=== PATIENT | female | born 1970 | race Caucasian/White ===

== ENCOUNTER 2019-12-28 10:05 | Inpatient (IN) ==
--- NOTE | 2019-12-12 10:37 | PAT Medication Instructions ---
Medication Instructions Date of Service December 12, 2019 Home Medications albuterol sulfate 2 puff INHALATION Q6H PRN cholecalciferol (vitamin D3) [Vitamin D3] 1,000 unit PO QAM dextroamphetamine-amphetamine [Adderall] 10 mg PO QPM diclofenac sodium 2 g TOPICAL QID PRN diclofenac sodium 75 mg PO QAM escitalopram oxalate [Lexapro] 30 mg PO QAM fluticasone propionate [Flonase Allergy Relief] 2 spray INTRANASAL BID methadone 10 - 20 mg PO TID multivitamin 1 tab PO QAM pregabalin [Lyrica] 50 mg PO BID zolpidem [Ambien] 10 mg PO HS PRN Nexium 1 tab PO QAM dextroamphetamine-amphetamine [Adderall XR] 20 mg PO QAM Continue as directed methadone 10 - 20 mg PO TID ASK your surgeon for instructions diclofenac sodium 75 mg PO QAM STOP taking 24 hours before surgery diclofenac sodium 2 g TOPICAL QID PRN DO NOT take the morning of surgery cholecalciferol (vitamin D3) [Vitamin D3] 1,000 unit PO QAM multivitamin 1 tab PO QAM dextroamphetamine-amphetamine [Adderall XR] 20 mg PO QAM Take morning of surgery With a small sip of water, OTHERWISE NOTHING TO EAT OR DRINK AFTER MIDNIGHT: albuterol sulfate 2 puff INHALATION Q6H PRN (use if needed; please bring with you to hospital day of surgery if possible) escitalopram oxalate [Lexapro] 30 mg PO QAM fluticasone propionate [Flonase Allergy Relief] 2 spray INTRANASAL BID pregabalin [Lyrica] 50 mg PO BID Nexium 1 tab PO QAM Take evening before surgery albuterol sulfate 2 puff INHALATION Q6H PRN (if needed) dextroamphetamine-amphetamine [Adderall] 10 mg PO QPM fluticasone propionate [Flonase Allergy Relief] 2 spray INTRANASAL BID pregabalin [Lyrica] 50 mg PO BID zolpidem [Ambien] 10 mg PO HS PRN (if needed) Other Notes If you have any questions please call us at [phone] or [phone] or [phone] or [phone]
--- NOTE | 2019-12-13 13:54 | Anesthesiology Consultation ---
Date of Service December 13, 2019 Assessment & Plan (1) Encounter for pre-operative examination: Chart Review Chart Review: Pending: Refer to Additional Notes / Consult section (pending PCP clearance and preop Covid testing ) and Patient seen in Pre Admission Testing Awaiting surgeon ordered PCP clearance scheduled 12/13 Per PAT appt 12/13/19, pt resides in [facility]. Wears mask, uses good hand hygiene and socially distances. No known Covid positive contacts or Covid related symptoms. Educated patient to follow up with surgeon's office regarding Covid testing. Educated on importance of self quarantining, social distancing and wearing mask in public both for the patient and household contacts. Teaching & Discussion Pre-Anesthesia Teaching/Discussion Notes: Instructed NPO after midnight before surgery,except medications with 15 cc of water. Medication instructions provided according to the [facility] guidelines. History Surgery Operation Date: 12/28/19 07:45 Proposed Procedures p L1-L2 Decompression, T12-L3 Fusion, L2-S1 Hardware Removal; Spinal Cord Monitoring - Ant Frank DO Height/Weight Height: 5 ft 7 in Weight: 74.7 kg Allergies Allergy/AdvReac Type Severity Reaction Status Date / Time pollen extracts Allergy Unknown CONGESTION, Verified 12/07/19 14:33 RUNNY NOSE Medications Home Medications Medication Instructions Recorded Confirmed Last Taken albuterol sulfate 2 puff INHALATION Q6H PRN 03/26/19 12/07/19 04/19/19 15:00 cholecalciferol (vitamin D3) 1,000 unit PO QAM 03/26/19 12/07/19 04/19/19 08:00 [Vitamin D3] dextroamphetamine-amphetamine 10 mg PO QPM 03/26/19 12/07/19 04/19/19 08:00 [Adderall] diclofenac sodium 2 g TOPICAL QID PRN 03/26/19 12/07/19 Unknown diclofenac sodium 75 mg PO QAM 03/26/19 12/07/19 04/08/19 escitalopram oxalate [Lexapro] 30 mg PO QAM 03/26/19 12/07/19 04/19/19 08:00 fluticasone propionate [Flonase 2 spray INTRANASAL BID 03/26/19 12/07/19 04/19/19 08:00 Allergy Relief] methadone 10 - 20 mg PO TID 12/01/0412/07/19 04/20/19 06:00 multivitamin 1 tab PO QAM 03/26/19 12/07/19 04/19/19 pregabalin [Lyrica] 50 mg PO BID 03/26/19 12/07/19 04/20/19 06:00 zolpidem [Ambien] 10 mg PO HS PRN 03/26/19 12/07/19 04/18/19 Nexium 1 tab PO QAM 12/07/19 12/07/19 Unknown dextroamphetamine-amphetamine 20 mg PO QAM 12/07/19 12/07/19 Unknown [Adderall XR] Wellbutrin See Rx Instructions .ROUTE .COMPLEX 12/13/19 12/13/19 Unknown Past Medical History Medical History Anxiety Asthma Well controlled and stable Attention deficit disorder (ADD) Chronic fatigue syndrome Stable Depression Fibromyalgia No current flares- stable GERD (gastroesophageal reflux disease) Well controlled and stable Migraine HX-NO RECENT ISSUES Osteoarthritis SOB (shortness of breath) on exertion ON OCC-DEPENDING ON ALLERGIES Exercise / Class Metabolic Activity II 4-5 Yardwork/Stairs/Walk up hill (ONE FLIGHT OF STAIRS- NO CHEST PAIN OR SOB) Past Surgical History Surgical History (Updated 12/13/19 @ 14:22 by Amina Carey PA-C) Fusion of spine CERVICAL Fusion of spine X 4-LOWER BACK H/O arthroscopy of shoulder RIGHT History of adenoidectomy History of arthroscopy RIGHT KNEE X 15 History of bowel resection DUE TO CHRONIC CONSTIPATION History of carpal tunnel release R/L History of section X 2 History of colonoscopy History of discectomy History of foot surgery BUNION-LEFT History of herniorrhaphy X 3 History of hysterectomy Per patient History of laminectomy X 2 History of myringotomy History of open reduction and internal fixation (ORIF) procedure HIGH TIBIAL OSTEOTOMY-RIGHT History of tonsillectomy History of total knee replacement RIGHT Nausea and vomiting after administration of anesthetic agent Past Anesthesia History No Hx of Anesthesia Complications (WITH EXCEPTION TO PONV) and No Family Hx of Anesthesia Complications History of PONV History of PONV (CONTROLLED IV NAUSEA MEDS ) and Hx of Motion Sickness Social History Smoking Status: Former smoker Smoking cigarettes per day: 3-4 CIGS A DAY-STARTED SMOKING AGE 13 UP TO 1 1/2 PPD Do You Dip or Chew Tobacco: No Smoking End Date: QUIT 2-3 WEEKS AGO-SMOKED SINCE AGE 13- USING NICOTINE PATCH Hx Alcohol Use: No Hx Substance Use: Yes (METHADONE) substance use type: other Substance Use Type Other:: METHADONE/ADDERALL (PRESCRIBED) Review of Systems Patient denies chest pain, shortness of breath, dyspnea on exertion, cough, wheezing, palpitations. No hx of seizures, stroke, FL, apnea/snoring. No hx of blood clots or blood transfusions Physical Exam Vital Signs VITALS BP 100/65 P 67 TEMP 98.1 SP02 97 % RESP16 Constitutional no acute distress ENMT Mouth: no TMJ clicking Thyromental Distance: > or= 3.5 Finger Breadths (3.5) Mallampati Class: I Crowns to molars Neck neck extension not limited Respiratory normal respiratory effort; no respiratory distress Auscultation: lungs clear to auscultation bilaterally; no wheezes Cardiovascular Rate/Rhythm: regular rate and regular rhythm Heart Sounds: no murmur Vessels: no carotid bruit Musculoskeletal Spine: no pain with cervical ROM Neurologic moves all extremities Psychiatric Orientation: alert Testing Laboratory Results PT 10.3 Seconds (9.0-12.0) 12/13/19 14:08 INR 1.0 (0.9-1.1) 12/13/19 14:08 APTT 28.5 Seconds (21.0-31.0) 12/13/19 14:08 Urine Color Yellow 12/13/19 Unknown Urine Appearance Clear (Clear) 12/13/19 Unknown Urine pH 6.5 (4.5-7.5) 12/13/19 Unknown Ur Specific [place] 1.021 (1.000-1.030) 12/13/19 Unknown Urine Protein Negative (Negative) 12/13/19 Unknown Urine Glucose (UA) Negative (Negative) 12/13/19 Unknown Urine Ketones Negative (Negative) 12/13/19 Unknown Urine Nitrite Negative (Negative) 12/13/19 Unknown Ur Leukocyte Esterase Negative (Negative) 12/13/19 Unknown Blood Type O Negative 12/13/19 14:08 Antibody Screen NEGATIVE 12/13/19 14:08 11/29/19= WBC: 6.76 H/H: 13.2/42.3 PLATELETS: 273 SODIUM: 142 POTASSIUM: 4.9 CHLORIDE: 104 CO2: 28 BUN: 11 CREATININE: 1.0 GLUCOSE: 77 Electrocardiogram Date: 03/27/19 Findings: + SB @ (55) Otherwise normal EKG. Chest X-Ray Date: 03/29/19 Findings: + NAD Echocardiogram Date: 08/29/15 LV wall motion is normal EF 55% RV systolic function is normal LV diastolic function is normal. Mild MR Mild TR No pulmonary HTN
[2019-12-13 14:32] LABS: Appearance Urine Clear (Clear); Bilirubin Urine Negative (Negative); Blood Urine Negative (Negative); Color Urine Yellow; Glucose Urine UA Negative (Negative); Ketones Urine Negative (Negative); Leukocyte Esterase Urine Negative (Negative); Nitrite Urine Negative (Negative); Protein Urine Negative (Negative); Specific Gravity Urine 1.021 (1.000-1.030); Urobilinogen Urine Negative (Negative); pH Urine 6.5 (4.5-7.5)
[2019-12-13 14:37] LABS: Partial Thromboplastin Time 28.5 Seconds (21.0-31.0); Prothrombin Time 10.3 Seconds (9.0-12.0)
[~2019-12-28 10:05] MED LIST: ACETAMINOPHEN 500 MG TAB PO SCH; CEFAZOLIN 1000MG 1,000 MG/7.5 ML SYR IV SCH; CeleBREX 200 MG CAP PO SCH; GABAPENTIN 900 MG DOSE PO SCH; LR 15ML/HR IV SCH
--- NOTE | 2019-12-28 11:19 | History & Physical Bridge Note ---
Date of Service December 28, 2019 History & Physical Bridge Note I have examined the patient, reviewed the History & Physical and in the interval since the performance of the History & Physical I have noted the following changes of clinical significance: no changes noted
--- NOTE | 2019-12-28 11:20 | History & Physical Report ---
Date of Service December 28, 2019 Assessment & Plan (1) Neurogenic claudication due to lumbar spinal stenosis: Admission and Anticipated Discharge Date Admission Date: L1-L2 decompression, T12-L3 fusion, L2-S1 hardware removal History of Present Illness Chief Complaint: Back and bilateral leg pain Primary Care Provider: Haleigh Powers MD This is a 49-year-old female who presents with chronic back and leg symptoms after failing course of nonoperative care is here for surgical intervention. Allergies Allergy/AdvReac Type Severity Reaction Status Date / Time pollen extracts Allergy Unknown CONGESTION, Verified 12/28/19 10:38 RUNNY NOSE Home Medications Home Medications Medication Instructions Recorded Confirmed Type albuterol sulfate 2 puff INHALATION Q6H PRN 03/26/19 12/28/19 History cholecalciferol (vitamin D3) 1,000 unit PO QAM 03/26/19 12/28/19 History [Vitamin D3] dextroamphetamine-amphetamine 20 mg PO QPM 03/26/19 12/28/19 History [Adderall] diclofenac sodium 75 mg PO QAM 03/26/19 12/28/19 History diclofenac sodium [Voltaren] 2 g TOPICAL QID PRN 03/26/19 12/28/19 History escitalopram oxalate [Lexapro] 30 mg PO QAM 03/26/19 12/28/19 History fluticasone propionate [Flonase 2 spray INTRANASAL BID 03/26/19 12/28/19 History Allergy Relief] methadone 10 - 20 mg PO TID 03/26/19 12/28/19 History multivitamin 1 tab PO QAM 03/26/19 12/28/19 History pregabalin [Lyrica] 50 mg PO BID 03/26/19 12/28/19 History zolpidem [Ambien] 10 mg PO HS PRN 03/26/19 12/28/19 History Nexium 1 tab PO QAM 12/07/19 12/28/19 History dextroamphetamine-amphetamine 20 mg PO QAM 12/07/19 12/28/19 History [Adderall XR] Wellbutrin See Rx Instructions .ROUTE .COMPLEX 12/13/19 12/28/19 History dextroamphetamine-amphetamine 10 mg PO DIRECTED 12/28/19 12/28/19 History [Adderall] Past Med/Surg History Medical History (Updated 12/28/19 @ 11:20 by Ant Frank, DO) Anxiety Asthma Well controlled and stable Attention deficit disorder (ADD) Chronic fatigue syndrome Stable Depression Fibromyalgia No current flares- stable GERD (gastroesophageal reflux disease) Well controlled and stable Migraine HX-NO RECENT ISSUES Osteoarthritis SOB (shortness of breath) on exertion ON OCC-DEPENDING ON ALLERGIES Surgical History Fusion of spine CERVICAL Fusion of spine X 4-LOWER BACK H/O arthroscopy of shoulder RIGHT History of adenoidectomy History of arthroscopy RIGHT KNEE X 15 History of bowel resection DUE TO CHRONIC CONSTIPATION History of carpal tunnel release R/L History of section X 2 History of colonoscopy History of discectomy History of foot surgery BUNION-LEFT History of herniorrhaphy X 3 History of hysterectomy Per patient History of laminectomy X 2 History of myringotomy History of open reduction and internal fixation (ORIF) procedure HIGH TIBIAL OSTEOTOMY-RIGHT History of tonsillectomy History of total knee replacement RIGHT Nausea and vomiting after administration of anesthetic agent Social History Smoking Status: Former smoker Cigarettes Per Day: 3-4 CIGS A DAY-STARTED SMOKING AGE 13 UP TO 1 1/2 PPD; Smoking End Date: QUIT 2-3 WEEKS AGO-SMOKED SINCE AGE 13- USING NICOTINE PATCH; Second Hand Exposure: No; Do You Dip or Chew Tobacco: No; Hx Alcohol Use: No Hx Substance Use: Yes (METHADONE) Substance Use Type Other:: METHADONE/ADDERALL (PRESCRIBED) Preferred Language: Urdu Communication Ability: Effective Grader Operator Required: No Beliefs That Will Affect Care: None Current Living Situation: Family Other Information That Helps Us Care for You: No Feels Safe at Home: Yes Safety Concerns: Feels Safe At This Time Physical Exam Physical Exam: Patient is alert and oriented Heart regular rate and rhythm Lungs clear to auscultation Results & Data ([facility]) Vital Signs (Past 12 Hours) Vital Signs Temp Pulse Resp BP Pulse Ox 12/28/19 10:46 36.9 C 79 18 117/73 98
[2019-12-28] MEDS ORDERED: ONDANSETRON INJ 2 MG/ML 2 ML VIAL IV PRN ×2 (11:34→16:53)
[2019-12-28] MEDS ORDERED: PROMETHAZINE HCL 12.5 MG in SODIUM CHLORIDE 0.9% 50 ML IV PRN ×2 (11:34→16:53)
[2019-12-28] MEDS ORDERED: HYDROmorphone INJ 2 MG/ML SYR/VIAL IV PRN (11:34)
[2019-12-28] MEDS ORDERED: ATROPINE SULFATE 0.1 MG/ML 10ML SYR IV PRN (11:34)
[2019-12-28] MEDS ORDERED: METOCLOPRAMIDE HCL INJ 5 MG/ML 2 ML VIAL IV PRN ×2 (11:34→16:53)
[2019-12-28] MEDS ORDERED: ePHEDrine sulfate 50 MG/ML AMP IV PRN (11:34)
[2019-12-28] MEDS ORDERED: BUPIVACAINE/EPINEPHRINE 0.25% 1:200,000 30 ML VIAL ONE (11:39)
[2019-12-28] MEDS ORDERED: BACITRACIN INJ 50,000 UNIT VIAL ONE (11:39)
[2019-12-28] MEDS ORDERED: fentaNYL citrate 100 MCG/2 ML VIAL ONE ×3 (11:40→12:25)
[2019-12-28] MEDS ORDERED: MIDAZOLAM HCL 1 MG/ML 2ML VIAL ONE (11:40)
[2019-12-28] MEDS ORDERED: PROPOFOL IV EMULSION 10 MG/ML 100 ML VIAL IV ONE ×2 (11:42→13:01)
[2019-12-28] MEDS ORDERED: FAMOTIDINE 20MG IV PUSH 20 MG/5 ML SYR IV STA (11:42)
[2019-12-28] MEDS ORDERED: DEXAMETHASONE SOD INJ 4 MG/ML VIAL ONE (11:42)
[2019-12-28] MEDS ORDERED: PROPOFOL IV EMULSION 10 MG/ML 20 ML VIAL IV ONE ×3 (11:42→14:51)
[2019-12-28] MEDS ORDERED: ONDANSETRON INJ 2 MG/ML 2 ML VIAL ONE ×2 (11:42→13:05)
[2019-12-28] MEDS ORDERED: SCOPOLAMINE 1.5 MG TDSY TD ONE (11:52)
[2019-12-28] MEDS ORDERED: FLOSEAL HEMOSTATIC MATRIX 10ML TOP ONE (12:52)
[2019-12-28] MEDS ORDERED: HYDROmorphone INJ 2 MG/ML SYR/VIAL ONE (12:58)
[2019-12-28] MEDS ORDERED: SODIUM CHLORIDE 0.9% INJ 10 ML VIAL ONE (12:59)
[2019-12-28] MEDS ORDERED: ROCURONIUM BROMIDE 10 MG/ML 5 ML VIAL IV ONE ×6 (13:04→13:05)
[2019-12-28] MEDS ORDERED: NEOSTIGMINE METHYLSULFATE 1 MG/ML 10ML VIAL ONE (13:05)
[2019-12-28] MEDS ORDERED: GLYCOPYRROLATE 0.2 MG/ML VIAL ONE (13:05)
[2019-12-28] MEDS ORDERED: ePHEDrine sulfate 50 MG/ML SYR ONE (13:52)
[2019-12-28] MEDS ORDERED: ALBUTEROL HFA INHALER 8.5 GM ONE (14:34)
--- NOTE | 2019-12-28 14:35 | Operative Report ---
Post Operative Report Pre & Post Diagnosis Operation Date: 12/28/19 11:35 Pre-Op Diagnosis: Lumbar spinal stenosis with neurogenic claudication Post-Op Diagnosis: Same I identified the patient and participated in the time-out.: Yes Procedure Operation Date: 12/28/19 11:35 Actual Procedures #1 removal of posterior instrumentation L2. #2 exploration of fusion L2-3. #3 lumbar decompression with bilateral medial facetectomies and foraminotomies T12- L1 and L1-L2. #4 posterior spinal fusion T11-L2. #5 posterior segmental instrumentation T11-L2. #6 interbody fusion L1-L2. #7 placement peek cage 7 x 22 mm at L1-L2. #8 placement locally harvested morselized autograft in the posterior lateral gutters. #9 placement infuse collagen sponge bone master graft in the posterior lateral gutters and ostial amp and interbody space. Surgeon Ant Frank, Apron Man Hank Humphries Estimated Blood Loss 100 Findings Consistent with Post-Op Diagnosis Specimens None Indications This is a 49-year-old female that presents with above-mentioned diagnosis after failing course of nonoperative care is here for the above-mentioned procedure. Description of Procedure Patient was met with identified informed consent obtained. Patient was then taken to the operative suite underwent an patient placed in a prone position Usama table on top Chace frame. All bony prominences well-padded eyes inspected to ensure no external pressure placed upon the. This point the thoracolumbar spine was prepped and draped no sterile fashion. Sharp dissection with assistance of Bovie cautery was performed down to and exposing the lamina and transverse processes of T11 T12-L1 and instrumentation at L2-L3 bilaterally. I then proceeded move the pedicle screws and connectors at L2 as well as the rods. Explore the fusion mass noted to be intact. Then performed a complete laminectomy of L1 and partial anatomy of T12 including bilateral medial facetectomies and foraminotomies addressing severe spinal stenosis. Pedicle screw was then placed in T11-T12 and L1 bilaterally with assistance of fluoroscopy. By way of a transforaminal approach on the left complete discectomy of L1-L2 was performed endplates coated to subcortical bleeding bone and a 7 x 22 mm peek cage filled with osteo-bone graft tapped into position. The proper sized rods were then placed and connected to the pre-existing rods with jair connectors and locked in position. Transverse processes and lamina of T11-T12 and L1 and L2 were then burred to subcortical bleeding bone. Infuse collagen sponge mass graft local autograft was then placed in the posterior gutters. 15 round ELZBIETA drain inserted. The incision was then closed with 1 Vicryl the fascia 2-0 Vicryl subcutaneously and 4 Monocryl for final skin closure. Steri-Strip sterile dressings placed. Patient waken taken to PACU stable condition. Please note spinal cord monitoring was utilized at the procedure no changes noted. Lastly Hank irwin was present at the entire surgery involved the patient positioning complex portions of the surgery and final skin closure. I attest to the content of the Intraoperative Record and any orders documented therein. Any exceptions are noted below.
[2019-12-28] MEDS ORDERED: KETOROLAC 30 MG/ML VIAL ONE (14:52)
--- NOTE | 2019-12-28 15:00 | Fluoroscopy Report ---
FL lumbar spine 2-3V HISTORY: 49 years-old Female L2-S1 REMOVE HARDWARE/L1-L2 DECOMPRESSIO/T12-L3 FUSION COMPARISON: Fluoroscopic images of the lumbar spine 01/29/2014 TECHNIQUE: 4 spot fluoroscopic images of the lumbar spine were obtained utilizing 44.0 seconds fluoro scopy time FINDINGS: There is extensive posterior interbody jesse fusion hardware which appears to extend from the T11-S1 le vels. Discectomy changes are noted at what appears to be the L1-L2, L2-L3 and L3-L4 levels. The hardw are appears intact. Lumbar levoscoliosis. No acute fracture or definite retained radiopaque foreign b jon. There is a metallic device noted overlying the L4-L5 disc space. IMPRESSION: Fluoroscopic assistance as above. Please see operative report for further details. ACT 112: Negative or not required by law. The above report was generated using voice recognition software. It may contain grammatical, syntax o r spelling errors. Electronically signed by: Austin Taveras M.D. 12/28/2019 2:59 PM
[2019-12-28] MEDS: fentaNYL citrate 100 MCG/2 ML VIAL IV PRN ×2 (15:32→15:39)
--- NOTE | 2019-12-28 16:15 | Anesthesiology Progress Note ---
Date of Service December 28, 2019 Anesthesia Post Procedure Vital Signs Vital Signs: Temp Pulse Pulse Resp BP Pulse Ox 12/28/19 16:05 98.2 F 68 14 110/66 98 12/28/19 15:55 69 13 145/76 H 96 12/28/19 15:45 65 14 143/75 H 96 12/28/19 15:35 67 12 132/63 100 12/28/19 15:25 77 17 150/82 H 100 12/28/19 15:15 66 12 132/75 100 12/28/19 15:08 97.0 F L 56 L 16 126/70 100 12/28/19 10:46 98.4 F 79 18 117/73 98 Pain Intensity Generalized: Pain Intensity: 6 Back: Pain Intensity: 7 Transfer of Care Handoff Completed per policy Notes Mental Status: alert / awake / arousable and participated in evaluation Patient Amnestic to Procedure: Yes Nausea / Vomiting: adequately controlled Pain: adequately controlled Airway Patency, RR, SpO2: stable & adequate BP & HR: stable & adequate Hydration State: stable & adequate Anesthetic Complications: no major complications apparent and Pt Satisfied with anesthetic care
[2019-12-28] MEDS ORDERED: ONDANSETRON 4 MG OD TAB PO PRN (16:53)
[2019-12-28] MEDS ORDERED: HYDROmorphone INJ 1 MG/ML SYRINGE IV PRN (16:53)
[2019-12-28] MEDS ORDERED: MAGNESIUM HYDROXIDE SUSP 30 ML UDC PO PRN (16:53)
[2019-12-28] MEDS ORDERED: LORazepam 0.5 MG/1 ML VIAL IV PRN (16:53)
[2019-12-28] MEDS ORDERED: DEXTROAMPHETAMINE AMPHETAMINE 10 MG PO SCH (16:53)
[2019-12-28] MEDS ORDERED: HYDROmorphone INJ 0.5 MG/0.5 ML SYR IV PRN (16:53)
[2019-12-28] MEDS ORDERED: FAMOTIDINE 20 MG TAB PO PRN (16:53)
[2019-12-28] MEDS ORDERED: DO NOT ADMINISTER PNEUMOCOCCAL VACCINE PRN (16:53)
[2019-12-28] MEDS ORDERED: DO NOT ADMINISTER FLU VACCINE PRN (16:53)
[2019-12-28] MEDS ORDERED: ALUMINUM/MAGNESIUM SUSP 30 ML UDC PO PRN (16:53)
[2019-12-28] MEDS ORDERED: NALOXONE HCL 0.4 MG/1 ML VIAL/CARP IV PRN (16:53)
[2019-12-28] MEDS ORDERED: ZOLPIDEM TARTRATE 10 MG TAB PO PRN (16:53)
[2019-12-28] MEDS ORDERED: SOD PHOSPHATE/SOD BIPHOSPHATE ENEMA 132 ML BTL PR PRN (16:53)
[2019-12-28] MEDS ORDERED: ALBUTEROL HFA 8 GM INHALER INH PRN (16:53)
[2019-12-28] MEDS ORDERED: bisacodyL 10 MG SUPP PR PRN (16:53)
[2019-12-28] MEDS ORDERED: LORazepam 0.5 MG TAB PO PRN (16:53)
[2019-12-28] MEDS ORDERED: ACETAMINOPHEN 500 MG TAB PO PRN (16:53)
[2019-12-28] MEDS ORDERED: METHADONE HCL 10 MG TAB PO SCH ×2 (18:00→21:00)
[2019-12-28] MEDS: LACTATED RINGER'S 1,000 ML IV SCH (18:09)
[2019-12-28] MEDS ORDERED: ALBUTEROL 0.083% NEBU SOLN 3 ML VIAL NEB PRN (18:58)
[2019-12-28] MEDS ORDERED: ALBUTEROL 0.083% NEBU SOLN 3 ML VIAL NEB ONE (18:59)
--- NOTE | 2019-12-28 19:22 | Hospitalist Consultation ---
Date of Consultation December 28, 2019 Assessment & Plan (1) Neurogenic claudication due to lumbar spinal stenosis: s/p lumbar decompression/fusion - Acute pain management, DVT prophylaxis, PT/OT per primary service - Discussed with patient the importance of incentive spirometry (2) ADHD (attention deficit hyperactivity disorder): Reviewed Adderall dosing with patient - she states that she takes 20 mg extended-release in AM, 10 mg immediate release around 4 pm daily. Adjust dosing to reflect this. (3) Asthma: On Flovent with prn albuterol as outpatient. Currently wheezing so will order albuterol neb x 1 now with additional dosing PRN (4) Emphysema of lung: Flovent/albuterol as above (5) Depression: - Continue Lexapro and Wellbutrin (6) GERD (gastroesophageal reflux disease): - Continue PPI therapy while admitted (7) Tobacco abuse: - Nicotine Patch 21 mg ordered to start tonight - pt has been using as an outpatient without significant side effects (8) group home current use of methadone for pain control: Clarified timing of methadone dosing with patient and by reviewing PCP notes. Adjusted orders to reflect this dosing. Patient seen and reviewed with collaborating physician, Dr. Mcdonald. Plan of care discussed and as outlined above. Thank you for this consultation. We will continue to follow this patient with you. A member of the [facility]ist team is available 08/11 at [phone]. Please do not hesitate to reach out with questions or concerns. Kosta Burton PA-C Supervising Physician Co-Signing Physician Notes 49 y/o female with a PMH of lumbar disc disease, asthma, emphysema, ADHD, depression, anxiety, fibromyalgia/chronic pain, long-term methadone use, obesity, ongoing tobacco use, and OA who underwent lumbar decompression and fusion today performed by Dr. Frank.. No postop complication. Continue pain management as per ortho. PT/OT evaluation. Monitor H/H. Continue incentive spirometry. Fall precaution. Continue monitor closely. MD Harry History of Present Illness Reason for Consultation: Post-operative medical management Requesting Physician: Ant Frank DO Attending Physician: Ant Frank DO History of Present Illness This is a 49 y/o female with a PMH of lumbar disc disease, asthma, emphysema, ADHD, depression, anxiety, fibromyalgia/chronic pain, long-term methadone use, obesity, ongoing tobacco use, and OA who underwent lumbar decompression and fusion today by Dr. Frank. We have been consulted for post-operative medical management. Currently, pt is seen lying in bed sleeping but arousable. She reports pain is overall fairly well-controlled. Pain at present seems more related to surgical intervention today - different from chronic back pain. Denies radiation of pain to LE, weakness, numbness or tingling. She also denies nausea, vomiting, sore throat, chest pain. She does note a chronic cough that worsens her current back pain. Some chest tightness and wheezing - has not used prn albuterol yet today. Denies chest pain, palpitations, CASTILLO or dizziness. She has been using a nicotine patch 21 mg daily at home as she is trying to quit smoking. Allergies Allergy/AdvReac Type Severity Reaction Status Date / Time pollen extracts Allergy Unknown CONGESTION, Verified 12/28/19 10:38 RUNNY NOSE Home Medications Home Medications Medication Instructions Recorded Confirmed Type albuterol sulfate 2 puff INHALATION Q6H PRN 03/26/19 12/28/19 History cholecalciferol (vitamin D3) 1,000 unit PO QAM 03/26/19 12/28/19 History [Vitamin D3] dextroamphetamine-amphetamine 20 mg PO QPM 03/26/19 12/28/19 History [Adderall] diclofenac sodium 75 mg PO QAM 03/26/19 12/28/19 History diclofenac sodium [Voltaren] 2 g TOPICAL QID PRN 03/26/19 12/28/19 History escitalopram oxalate [Lexapro] 30 mg PO QAM 03/26/19 12/28/19 History fluticasone propionate [Flonase 2 spray INTRANASAL BID 03/26/19 12/28/19 History Allergy Relief] methadone 10 - 20 mg PO TID 03/26/19 12/28/19 History multivitamin 1 tab PO QAM 03/26/19 12/28/19 History pregabalin [Lyrica] 50 mg PO BID 03/26/19 12/28/19 History zolpidem [Ambien] 10 mg PO HS PRN 03/26/19 12/28/19 History Nexium 1 tab PO QAM 12/07/19 12/28/19 History dextroamphetamine-amphetamine 20 mg PO QAM 12/07/19 12/28/19 History [Adderall XR] Flovent HFA 2 puff INHALATION BID 12/28/19 12/28/19 History bupropion HCl [Wellbutrin SR] 100 mg PO DAILY 12/28/19 12/28/19 History dextroamphetamine-amphetamine 10 mg PO DIRECTED 12/28/19 12/28/19 History [Adderall] loratadine 10 mg PO DAILY 12/28/19 12/28/19 History oxycodone 5 mg PO Q6H PRN #30 tab 12/29/19 Rx Patient History Medical History ADHD (attention deficit hyperactivity disorder) Anxiety Asthma Well controlled and stable Attention deficit disorder (ADD) Chronic fatigue syndrome Stable Depression Emphysema of lung Fibromyalgia No current flares- stable GERD (gastroesophageal reflux disease) Well controlled and stable Migraine HX-NO RECENT ISSUES Osteoarthritis SOB (shortness of breath) on exertion ON OCC-DEPENDING ON ALLERGIES Tobacco abuse Surgical History Fusion of spine CERVICAL Fusion of spine X 4-LOWER BACK H/O arthroscopy of shoulder RIGHT History of adenoidectomy History of arthroscopy RIGHT KNEE X 15 History of bowel resection DUE TO CHRONIC CONSTIPATION History of carpal tunnel release R/L History of section X 2 History of colonoscopy History of discectomy History of foot surgery BUNION-LEFT History of herniorrhaphy X 3 History of hysterectomy Per patient History of laminectomy X 2 History of myringotomy History of open reduction and internal fixation (ORIF) procedure HIGH TIBIAL OSTEOTOMY-RIGHT History of tonsillectomy History of total knee replacement RIGHT Nausea and vomiting after administration of anesthetic agent Social History Smoking Status: Former smoker Cigarettes Per Day: 3-4 CIGS A DAY-STARTED SMOKING AGE 13 UP TO 1 1/2 PPD; Smoking End Date: QUIT 2-3 WEEKS AGO-SMOKED SINCE AGE 13- USING NICOTINE PATCH; Second Hand Exposure: No; Do You Dip or Chew Tobacco: No; Hx Alcohol Use: No Hx Substance Use: Yes (METHADONE) Substance Use Type Other:: METHADONE/ADDERALL (PRESCRIBED) Preferred Language: Hungarian Communication Ability: Effective Semiautomatic Stitcher Operator Required: No Beliefs That Will Affect Care: None Current Living Situation: Family Other Information That Helps Us Care for You: No Feels Safe at Home: Yes Safety Concerns: Feels Safe At This Time Review of Systems Review of Systems: All systems reviewed & are unremarkable except as noted in HPI & below Constitutional: no fever, no chills and no weakness Eyes: no diplopia Ear, Nose, Mouth, Throat: no nasal discharge, no post nasal drip and no sore throat Respiratory: + cough and + wheezing; no chest congestion and no dyspnea Cardiovascular: no chest pain, no palpitations, no syncope and no edema Gastrointestinal: no abdominal pain, no nausea, no vomiting and no diarrhea/loose stools Genitourinary: no dysuria and no hematuria Musculoskeletal: + back pain Integumentary: no rash and no skin ulcer Neurologic: no tingling, no numbness, no paresthesia, no seizure-like activity and no dizziness Psychiatric: + depression and + anxiety Physical Exam Constitutional: WD/WN, vitals as above no acute distress Sleeping but arousable with physical stimulation Eyes: + anicteric sclerae; no conjunctival abnormality ENMT: external ear and nose normal, oropharynx normal Neck: trachea midline Respiratory: Auscultation: + wheezes; no rales and no rhonchi Coarse BS throughout with expiratory wheezes Cardiovascular: Rate/Rhythm: regular rate and regular rhythm Heart Sounds: no gallop, no murmur and no cardiac rub Extremities: no calf tenderness and no pedal edema Gastrointestinal (Abdomen): Inspection/Auscultation: normal bowel sounds; abdomen not distended Percussion/Palpation: abdomen soft; abdomen nontender Musculoskeletal: Head/Neck/Chest: normocephalic, head atraumatic and neck supple Extremities: no cyanosis and no clubbing Skin: no rashes, warm and dry no jaundice Neurologic: moves all extremities; no focal motor deficits Speech / Cognition: normal speech Psychiatric: A+Ox3, euthymic affect Results & Data Results & Data ([facility]) Vital Signs (Past 12 Hours) Vital Signs Temp Pulse Pulse Pulse Resp BP Pulse Ox 12/28/19 18:45 69 16 110/73 99 12/28/19 17:40 36.5 C 69 16 116/73 94 12/28/19 17:18 36.7 C 70 16 117/74 98 12/28/19 17:00 12/28/19 16:54 36.7 C 75 20 133/78 100 12/28/19 16:15 69 12 137/72 98 12/28/19 16:05 36.8 C 68 14 110/66 98 12/28/19 15:55 69 13 145/76 H 96 12/28/19 15:45 65 14 143/75 H 96 12/28/19 15:35 67 12 132/63 100 12/28/19 15:25 77 17 150/82 H 100 12/28/19 15:15 66 12 132/75 100 12/28/19 15:08 36.1 C L 56 L 16 126/70 100 12/28/19 10:46 36.9 C 79 18 117/73 98 Pulse Ox 12/28/19 18:45 12/28/19 17:40 12/28/19 17:18 12/28/19 17:00 98 12/28/19 16:54 12/28/19 16:15 12/28/19 16:05 12/28/19 15:55 12/28/19 15:45 12/28/19 15:35 12/28/19 15:25 12/28/19 15:15 12/28/19 15:08 12/28/19 10:46 Laboratory Results 12/13/19 12/13/19 12/13/19 14:08 14:08 Unknown PT 10.3 INR 1.0 APTT 28.5 PTT Ratio 1.0 Urine Color Yellow Urine Appearance Clear Urine pH 6.5 Ur Specific [place] 1.021 Urine Protein Negative Urine Glucose (UA) Negative Urine Ketones Negative Urine Blood Negative Urine Nitrite Negative Urine Bilirubin Negative Urine Urobilinogen Negative Ur Leukocyte Esterase Negative Blood Type O Negative Antibody Screen NEGATIVE Crossmatch 12/28/19 10:18 PT INR APTT PTT Ratio Urine Color Urine Appearance Urine pH Ur Specific [place] Urine Protein Urine Glucose (UA) Urine Ketones Urine Blood Urine Nitrite Urine Bilirubin Urine Urobilinogen Ur Leukocyte Esterase Blood Type O Negative Antibody Screen NEGATIVE Crossmatch See Detail Medications Administered Lactated Ringer's (Lr) 1,000 mls @ 100 mls/hr IV .Q10H JAQUELIN Stop: 01/27/20 16:52 Last Admin: 12/28/19 18:09 Dose: 100 mls/hr Documented by: [id number] Discontinued Medications Acetaminophen (Acetaminophen 500 Mg Tab) 1,000 mg PO PREOP JAQUELIN Stop: 12/28/19 18:00 Last Admin: 12/28/19 10:28 Dose: 1,000 mg Documented by: [id number] Bacitracin (Bacitracin Inj 50,000 Unit Vial) Confirm Administered Dose 50,000 units .ROUTE .STK-MED ONE Stop: 12/28/19 11:40 Last Admin: 12/28/19 12:55 Dose: 50,000 units Documented by: [id number] Bupivacaine HCl/Epinephrine Bitart (Bupivacaine/Epinephrine 0.25% 1:200,000 30 Ml Vial) Confirm Administered Dose 30 ml .ROUTE .STK-MED ONE Stop: 12/28/19 11:40 Last Admin: 12/28/19 12:56 Dose: 30 ml Documented by: [id number] Celecoxib (Celebrex 200 Mg Cap) 200 mg PO PREOP JAQUELIN Stop: 12/28/19 18:00 Last Admin: 12/28/19 10:28 Dose: 200 mg Documented by: [id number] Fentanyl Citrate (Fentanyl Citrate 100 Mcg/2 Ml Vial) 50 mcg IV Q5M PRN PRN Reason: PACU Use Only-Pain Stop: 12/28/19 19:34 Last Admin: 12/28/19 15:39 Dose: 50 mcg Documented by: [id number] Admin: 12/28/19 15:32 Dose: 50 mcg Documented by: [id number] Gabapentin (Gabapentin 900 Mg Dose) 900 mg PO PREOP JAQUELIN Stop: 12/28/19 18:00 Last Admin: 12/28/19 17:02 Dose: Not Given Documented by: [id number] Lactated Ringer's (Lr) 1,000 mls @ 15 mls/hr IV .Q24H JAQUELIN Stop: 12/29/19 05:59 Last Infusion: 12/28/19 11:55 Dose: 0 mls/hr Documented by: [id number] Admin: 12/28/19 10:45 Dose: 15 mls/hr Documented by: [id number] Cefazolin Sodium (Ancef 1000mg) 1,000 mg in 7.5 mls @ 2.5 mls/min IV PREOP JAQUELIN; Protocol Stop: 12/28/19 18:00 Last Admin: 12/28/19 12:55 Dose: 2.5 mls/min Documented by: [id number] Famotidine (Pepcid 20mg Iv Push) 20 mg in 5 mls @ 2.5 mls/min IV NOW STA Stop: 12/28/19 11:43 Last Admin: 12/28/19 17:02 Dose: Not Given Documented by: [id number] Methadone HCl (Methadone Hcl 10 Mg Tab) 10 mg PO QDD JAQUELIN Stop: 01/11/20 17:59 Last Admin: 12/28/19 18:12 Dose: 10 mg Documented by: [id number] Miscellaneous ( Floseal Hemostatic Matrix 10ml) 20 ml TOP ONCE ONE Stop: 12/28/19 12:53 Last Admin: 12/28/19 17:02 Dose: Not Given Documented by: [id number] Scopolamine (Scopolamine 1.5 Mg Tdsy) Confirm Administered Dose 1.5 mg TD .STK- MED ONE Stop: 12/28/19 11:53 Last Admin: 12/28/19 17:02 Dose: 1.5 mg Documented by: [id number] (1) Depression Active/Remission status: remission status unspecified Depression Type: major depressive disorder Major depression recurrence: recurrent Qualified Code(s): F33.9 - Major depressive disorder, recurrent, unspecified (2) Emphysema of lung Emphysema type: unspecified Qualified Code(s): J43.9 - Emphysema, unspecified (3) ADHD (attention deficit hyperactivity disorder) Attention deficit-hyperactivity disorder type: unspecified Qualified Code(s): F90.9 - Attention-deficit hyperactivity disorder, unspecified type (4) GERD (gastroesophageal reflux disease) Esophagitis presence: without esophagitis Qualified Code(s): K21.9 - Gastro- esophageal reflux disease without esophagitis (5) Asthma Asthma complication type: unspecified Asthma persistence: unspecified Asthma severity: unspecified severity Qualified Code(s): J45.909 - Unspecified asthma, uncomplicated
[2019-12-28] MEDS: NICOTINE 21 MG/24 HR TDSY TD SCH (20:07)
[2019-12-28] MEDS: CEFAZOLIN 2000MG 2,000 MG/15 ML SYR IV SCH (20:09)
[2019-12-28] MEDS: FLUTICASONE PROPIONATE NA SPR 16 GM BTL SCH (20:11)
[2019-12-28] MEDS: DOCUSATE SODIUM/SENNA 50/8.6MG TAB PO SCH (20:12)
[2019-12-28] MEDS: KETOROLAC 30 MG/ML VIAL IV SCH (20:13)
[2019-12-28] MEDS: PREGABALIN 50 MG CAP PO SCH (20:21)
[2019-12-28] MEDS ORDERED: NON-FORMULARY PATIENT'S OWN MED SCH (21:00)
[2019-12-28] MEDS ORDERED: NON-FORMULARY MEDICATION (Dextroamphetamine-Amphetamine [Adderall] 20 MG) PO SCH (21:00)
[2019-12-28] MEDS: FLUTICASONE HFA 110MCG INHALER INH SCH (22:02)
[2019-12-29] MEDS: OXYCODONE HCL IR 5 MG TAB (IMMEDIATE RELEASE) PO PRN ×4 (00:43→22:27)
[2019-12-29] MEDS: KETOROLAC 30 MG/ML VIAL IV SCH ×3 (04:02→15:11)
[2019-12-29] MEDS: ACETAMINOPHEN 1,000 MG/100 ML VIAL IV PRN ×2 (04:02→12:03)
[2019-12-29] MEDS: LACTATED RINGER'S 1,000 ML IV SCH (04:36)
[2019-12-29 05:50] LABS: Basophils # (auto) 0.01 K/uL (0-0.2); Basophils % (auto) 0.1 %; Hematocrit (blood only) 36.6 % (37-47); Hemoglobin 11.9 g/dL (12.0-16.0); Immature Granulocytes # (auto) 0.02 K/uL (0.00-0.02); Immature Granulocytes % (auto) 0.2 %; Lymphocytes # (auto) 1.11 K/uL (1.2-3.4); Lymphocytes % (auto) 8.5 %; Mean Corpuscular Hemoglobin 30.2 pg (25-34); Mean Corpuscular Hgb Conc 32.5 g/dL (32-36); Mean Corpuscular Volume 92.9 fL (80-100); Mean Platelet Volume 9.2 fL (7.4-10.4); Monocytes # (auto) 0.91 K/uL (0.11-0.59); Monocytes % (auto) 6.9 %; Neutrophils # (auto) 11.06 K/uL (1.4-6.5); Neutrophils % (auto) 84.3 %; Platelet Count 290 K/uL (130-400); RDW Coefficient of Variation 14.4 % (11.5-14.5); RDW Standard Deviation 49.7 fL (36.4-46.3); Red Blood Count 3.94 M/uL (4.2-5.4); White Blood Count 13.11 K/uL (4.8-10.8)
[2019-12-29] MEDS: CEFAZOLIN 2000MG 2,000 MG/15 ML SYR IV SCH (05:50)
[2019-12-29] MEDS: POLYETHYLENE (MIRALAX) 17 GM PACK PO SCH ×2 (06:02→12:02)
[2019-12-29 06:10] LABS: BUN Creatinine Ratio 17.5 (10-20); Calcium 9.4 mg/dl (8.5-10.1); Creatinine Clr Calc Pharmacy 97.3 ml/min; Est GFR (Non-African American) 102.7; Potassium 4.9 mmol/L (3.5-5.1)
--- NOTE | 2019-12-29 08:12 | Anesthesiology Progress Note ---
Date of Service December 29, 2019 Anesthesia Post Procedure Vital Signs Vital Signs: Temp Pulse Pulse Pulse Resp BP BP 12/29/19 07:53 36.5 C 57 L 18 150/79 H 12/29/19 03:36 36.8 C 63 18 143/86 H 12/29/19 00:35 12/28/19 23:32 36.5 C 75 14 118/69 12/28/19 21:58 12/28/19 19:52 68 16 12/28/19 19:46 36.5 C 64 12 100/65 12/28/19 19:20 36.7 C 12 12/28/19 18:45 69 16 110/73 12/28/19 17:40 36.5 C 69 16 116/73 12/28/19 17:18 36.7 C 70 16 117/74 12/28/19 17:00 12/28/19 16:54 36.7 C 75 20 133/78 12/28/19 16:15 69 12 137/72 12/28/19 16:05 36.8 C 68 14 110/66 12/28/19 15:55 69 13 145/76 H 12/28/19 15:45 65 14 143/75 H 12/28/19 15:35 67 12 132/63 12/28/19 15:25 77 17 150/82 H 12/28/19 15:15 66 12 132/75 12/28/19 15:08 36.1 C L 56 L 16 126/70 12/28/19 10:46 36.9 C 79 18 117/73 Pulse Ox Pulse Ox 12/29/19 07:53 100 12/29/19 03:36 99 12/29/19 00:35 98 12/28/19 23:32 96 12/28/19 21:58 97 12/28/19 19:52 98 12/28/19 19:46 99 12/28/19 19:20 99 12/28/19 18:45 99 12/28/19 17:40 94 12/28/19 17:18 98 12/28/19 17:00 98 12/28/19 16:54 100 12/28/19 16:15 98 12/28/19 16:05 98 12/28/19 15:55 96 12/28/19 15:45 96 12/28/19 15:35 12/28/19 15:25 12/28/19 15:15 12/28/19 15:08 12/28/19 10:46 98 Pain Intensity Generalized: Pain Intensity: 0 Back: Pain Intensity: 0 Notes Mental Status: alert / awake / arousable and participated in evaluation Nausea / Vomiting: adequately controlled Pain: adequately controlled Airway Patency, RR, SpO2: stable & adequate BP & HR: stable & adequate Hydration State: stable & adequate Anesthetic Complications: no major complications apparent and Pt Satisfied with anesthetic care
--- NOTE | 2019-12-29 08:38 | Hospitalist Progress Note ---
Date of Service December 29, 2019 Assessment & Plan (1) Neurogenic claudication due to lumbar spinal stenosis: s/p lumbar decompression/fusion w/ Dr. Frank - Acute pain management, DVT prophylaxis, PT/OT per primary service - Discussed with patient the importance of incentive spirometry - mild anemia, cont. to monitor H&H (2) ADHD (attention deficit hyperactivity disorder): Reviewed Adderall dosing with patient - she states that she takes 20 mg extended-release in AM, 10 mg immediate release around 4 pm daily. Adjust dosing to reflect this. (3) Asthma: On Flovent with prn albuterol as outpatient. 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 Adjusted orders to reflect this dosing. Thank you for this consultation. We will continue to follow this patient with you. A member of the [facility] team is available 08/11 at [phone]. Please do not hesitate to reach out with questions or concerns. Admission and Anticipated Discharge Date Admission Date: December 28, 2019 Subjective Patient is sitting up in bed, in no acute distress. Denies any fevers, chills, chest pain, shortness of breath. She is using incentive spirometry. Denies any abdominal pain, nausea or vomiting. Denies any dizziness or lightheadedness. Overall seems to be feeling well. Back pain seems to be well controlled. Patient's fianc at the bedside. Review of Systems Review of Systems: All systems reviewed & are unremarkable except as noted in HPI & below Constitutional: no fever and no chills Respiratory: no cough and no dyspnea Cardiovascular: no chest pain and no palpitations Gastrointestinal: no abdominal pain, no nausea and no vomiting Physical Exam Physical Exam: Constitutional: Middle-aged female sitting up in bed, in no acute distress WD/WN, vitals as above Eyes: + anicteric sclerae; no conjunctival abnormality, EOMI ENMT: external ear and nose normal, oropharynx normal Neck: trachea midline Respiratory: Auscultation: CTAB, no wheezing, rhonchi or crackles noted Cardiovascular: Rate/Rhythm: regular rate and regular rhythm Heart Sounds: no gallop, no murmur and no cardiac rub Extremities: no calf tenderness and no pedal edema Gastrointestinal (Abdomen): Inspection/Auscultation: normal bowel sounds; abdomen not distended Percussion/Palpation: abdomen soft; abdomen nontender Musculoskeletal: Head/Neck/Chest: normocephalic, head atraumatic and neck supple Extremities: no cyanosis and no clubbing Skin: no rashes, warm and dry no jaundice Neurologic: moves all extremities; no focal motor deficits Speech / Cognition: normal speech Psychiatric: A+Ox3, euthymic affect Results & Data Results & Data ([facility]) Vital Signs (Past 12 Hours) Vital Signs Temp Pulse Pulse Resp BP Pulse Ox Pulse Ox 12/29/19 07:53 36.5 C 57 L 18 150/79 H 100 12/29/19 03:36 36.8 C 63 18 143/86 H 99 12/29/19 00:35 98 12/28/19 23:32 36.5 C 75 14 118/69 96 12/28/19 21:58 97 Laboratory Results 12/29/19 12/29/19 12/28/19 Range/Units 05:31 05:31 10:18 WBC 13.11 H (4.8-10.8) K/uL RBC 3.94 L (4.2-5.4) M/uL Hgb 11.9 L (12.0-16.0) g/dL Hct 36.6 L (37-47) % MCV 92.9 (80-100) fL MCH 30.2 (25-34) pg MCHC 32.5 (32-36) g/dL RDW Std Deviation 49.7 H (36.4-46.3) fL RDW Coeff of Jemima 14.4 (11.5-14.5) % Plt Count 290 (130-400) K/uL MPV 9.2 (7.4-10.4) fL Immature Gran % (Auto) 0.2 % Neut % (Auto) 84.3 % Lymph % (Auto) 8.5 % Bandera % (Auto) 6.9 % Eos % (Auto) 0.0 % Baso % (Auto) 0.1 % Neut # (Auto) 11.06 H (1.4-6.5) K/uL Lymph # (Auto) 1.11 L (1.2-3.4) K/uL Bandera # (Auto) 0.91 H (0.11-0.59) K/uL Eos # (Auto) 0.00 (0-0.5) K/uL Baso # (Auto) 0.01 (0-0.2) K/uL Immature Gran # (Auto) 0.02 (0.00-0.02) K/uL Sodium 139 (136-145) mmol/L Potassium 4.9 (3.5-5.1) mmol/L Chloride 105 (98-107) mmol/L Carbon Dioxide 31 (21-32) mmol/L Anion Gap 2.0 L (3-11) BUN 12 (7-18) mg/dl Creatinine 0.68 (0.6-1.2) mg/dl Est Cr Clr Drug Dosing 97.3 ml/min Est GFR ( Amer) 119.0 Est GFR (Non-Af Amer) 102.7 BUN/Creatinine Ratio 17.5 (10-20) Glucose 111 H (70-99) mg/dl Calcium 9.4 (8.5-10.1) mg/dl Blood Type O Negative Antibody Screen NEGATIVE Crossmatch See Detail Medications Administered Current Inpatient Medications Acetaminophen (Acetaminophen 500 Mg Tab) 1,000 mg PO Q8H PRN PRN Reason: MILD Pain Scale 1,2,3 & Pre PT Stop: 01/27/20 16:52 Al Hydrox/Mg Hydrox/Simethicone (Aluminum/Magnesium Susp 30 Ml Udc) 30 ml PO Q6H PRN PRN Reason: Dyspepsia Stop: 01/27/20 16:52 Albuterol (Albuterol 0.083% Nebu Soln 3 Ml Vial) 2.5 mg NEB Q6R PRN PRN Reason: Shortness Of Breath Or Wheezin Stop: 01/27/20 18:57 Amphetamine/Dextroamphetamine (Amphetamine Asp/Sulf/Dextramph Er 20 Mg Cap) 20 mg PO QAM [facility] Stop: 01/12/20 08:59 Amphetamine/Dextroamphetamine (Amphetamine Asp/Sulf/Dextramph 10 Mg Tab) 10 mg PO QD@16 [facility] Stop: 01/12/20 15:59 Bisacodyl (Bisacodyl 10 Mg Supp) 10 mg OR DAILY PRN PRN Reason: Constipation Stop: 01/27/20 16:52 Bupropion HCl (Bupropion Sr 100 Mg Tabcr) 100 mg PO DAILY [facility] Stop: 01/28/20 08:59 Diphenhydramine HCl (Diphenhydramine Hcl 25 Mg Cap) 25 mg PO Q6H PRN PRN Reason: Allergic Rhinitis/Insomnia Stop: 01/27/20 16:52 Escitalopram Oxalate (Escitalopram Oxalate 10 Mg Tab) 30 mg PO QAM [facility] Stop: 01/28/20 08:59 Famotidine (Famotidine 20 Mg Tab) 20 mg PO Q12H PRN PRN Reason: Dyspepsia Stop: 01/27/20 16:52 Fluticasone Propionate (Fluticasone Propionate Na Spr 16 Gm Btl) 2 sprays NA BID [facility] Stop: 01/27/20 20:59 Last Admin: 12/28/19 20:11 Dose: 2 sprays Documented by: Fluticasone Propionate (Fluticasone Hfa 110mcg Inhaler) 2 puffs INH BID [facility] Stop: 01/27/20 20:59 Last Admin: 12/28/19 22:02 Dose: 2 puffs Documented by: Hydromorphone HCl (Hydromorphone Inj 0.5 Mg/0.5 Ml Syr) 0.5 mg IV Q3H PRN PRN Reason: MOD pain (scale 4-6) & Pre PT Stop: 01/11/20 16:52 Hydromorphone HCl (Hydromorphone Inj 1 Mg/Ml Syringe) 1 mg IV Q3H PRN PRN Reason: severe pain (scale 7-10) Stop: 01/11/20 16:52 Hydroxyzine HCl (Hydroxyzine Hcl 25 Mg Tab) 25 mg PO Q8H PRN PRN Reason: Anxiety Stop: 01/27/20 16:52 Promethazine HCl 12.5 mg/ (Sodium Chloride) 50.5 mls @ 204 mls/hr IV Q6H PRN PRN Reason: Nausea &/or Vomiting Stop: 01/27/20 16:52 Lorazepam (Ativan) 0.5 mg in 1 mls @ 0.5 mls/min IV Q8H PRN PRN Reason: Sedation/Anxiety Stop: 01/27/20 16:52 Acetaminophen (Ofirmev) 1,000 mg in 100 mls @ 400 mls/hr IV Q8H PRN PRN Reason: MILD Pain Rating 1,2,3 Stop: 12/29/19 16:52 Last Infusion: 12/29/19 04:17 Dose: Infused Documented by: Influenza Virus Vaccine Quadrival (Do Not Administer Flu Vaccine) 1 ea N/A PRN PRN PRN Reason: Notification Stop: 01/27/20 16:52 Ketorolac Tromethamine (Ketorolac 30 Mg/Ml Vial) 30 mg IV Q6H [facility] Stop: 12/29/19 15:01 Last Admin: 12/29/19 04:02 Dose: 30 mg Documented by: Loratadine (Loratadine 10 Mg Tab) 10 mg PO DAILY [facility] Stop: 01/28/20 08:59 Lorazepam (Lorazepam 0.5 Mg Tab) 0.5 mg PO Q8H PRN PRN Reason: Sedation/Anxiety Stop: 01/27/20 16:52 Magnesium Hydroxide (Magnesium Hydroxide Susp 30 Ml Udc) 30 ml PO DAILY PRN PRN Reason: Constipation Stop: 01/27/20 16:52 Methadone HCl (Methadone Hcl 5 Mg Tab) 20 mg PO BID17 [facility] Stop: 01/12/20 08:59 Methadone HCl (Methadone Hcl 10 Mg Tab) 10 mg PO QDL [facility] Stop: 01/12/20 11:29 Metoclopramide HCl (Metoclopramide Hcl Inj 5 Mg/Ml 2 Ml Vial) 10 mg IV Q6H PRN PRN Reason: Nausea &/or Vomiting Stop: 01/27/20 16:52 Miscellaneous (Remove Nicoderm Patch) 1 ea N/A DAILY@0859 [facility] Stop: 01/28/20 08:58 Multivitamins (Multivitamin Tab) 1 tab PO QAM [facility] Stop: 01/28/20 08:59 Naloxone HCl (Naloxone Hcl 0.4 Mg/1 Ml Vial/Carp) 0.1 mg IV Q5M PRN; Protocol PRN Reason: Oversedation/Resp Depression Stop: 01/27/20 16:52 Nicotine (Nicotine 21 Mg/24 Hr Tdsy) 21 mg TD QAM [facility] Stop: 01/27/20 19:14 Last Admin: 12/28/19 20:07 Dose: 21 mg Documented by: Ondansetron HCl (Ondansetron Inj 2 Mg/Ml 2 Ml Vial) 4 mg IV Q6H PRN PRN Reason: Nausea &/or Vomiting Stop: 01/27/20 16:52 Ondansetron HCl (Ondansetron 4 Mg Od Tab) 4 mg PO Q6H PRN PRN Reason: Nausea Stop: 01/27/20 16:52 Oxycodone HCl (Oxycodone Hcl Ir 5 Mg Tab (Immediate Release)) 5 - 10 mg PO Q4H PRN PRN Reason: Moderate-Severe Pain & Pre PT Stop: 01/11/20 16:52 Last Admin: 12/29/19 00:43 Dose: 10 mg Documented by: Pantoprazole Sodium (Pantoprazole 40 Mg Tab) 40 mg PO QAM [facility] Stop: 01/28/20 08:59 Pneumococcal Polyvalent Vaccine (Do Not Administer Pneumococcal Vaccine) 1 ea N/A PRN PRN PRN Reason: Notification Stop: 01/27/20 16:52 Polyethylene Glycol (Polyethylene (Miralax) 17 Gm Pack) 17 gm PO Q6 [facility] Stop: 01/28/20 05:59 Last Admin: 12/29/19 06:02 Dose: 17 gm Documented by: Pregabalin (Pregabalin 50 Mg Cap) 50 mg PO BID [facility] Stop: 01/27/20 20:59 Last Admin: 12/28/19 20:21 Dose: 50 mg Documented by: Senna/Docusate Sodium (Docusate Sodium/Senna 50/8.6mg Tab) 2 tab PO HS [facility] Stop: 01/27/20 20:59 Last Admin: 12/28/19 20:12 Dose: 2 tab Documented by: Sodium Biphosphate/Sodium Phosphate (Sod Phosphate/Sod Biphosphate Enema 132 Ml Btl) 132 ml OR ONE PRN PRN Reason: Constipation Stop: 01/27/20 16:52 Vitamin D (Cholecalciferol 1,000 Units 25 Mcg Tab) 1,000 units PO QAM [facility] Stop: 01/28/20 08:59 Zolpidem Tartrate (Zolpidem Tartrate 10 Mg Tab) 10 mg PO HS PRN PRN Reason: Sleep Stop: 01/27/20 16:52 (1) Depression Active/Remission status: remission status unspecified Depression Type: major depressive disorder Major depression recurrence: recurrent Qualified Code(s): F33.9 - Major depressive disorder, recurrent, unspecified (2) Emphysema of lung Emphysema type: unspecified Qualified Code(s): J43.9 - Emphysema, unspecified (3) ADHD (attention deficit hyperactivity disorder) Attention deficit-hyperactivity disorder type: unspecified Qualified Code(s): F90.9 - Attention-deficit hyperactivity disorder, unspecified type (4) GERD (gastroesophageal reflux disease) Esophagitis presence: without esophagitis Qualified Code(s): K21.9 - Gastro- esophageal reflux disease without esophagitis (5) Asthma Asthma complication type: unspecified Asthma persistence: unspecified Asthma severity: unspecified severity Qualified Code(s): J45.909 - Unspecified asthma, uncomplicated
[2019-12-29] MEDS ORDERED: METHADONE HCL 5 MG TAB PO SCH (09:00)
[2019-12-29] MEDS: LORATADINE 10 MG TAB PO SCH (09:14)
[2019-12-29] MEDS: BuPROPion SR 100 MG TABCR PO SCH (09:15)
[2019-12-29] MEDS: CHOLECALCIFEROL 1,000 UNITS 25 MCG TAB PO SCH (09:15)
[2019-12-29] MEDS: ESCITALOPRAM OXALATE 10 MG TAB PO SCH (09:16)
[2019-12-29] MEDS: PANTOprazole 40 MG TAB PO SCH (09:16)
[2019-12-29] MEDS: MULTIVITAMIN TAB PO SCH (09:16)
[2019-12-29] MEDS: FLUTICASONE PROPIONATE NA SPR 16 GM BTL SCH ×2 (09:17→20:17)
[2019-12-29] MEDS: FLUTICASONE HFA 110MCG INHALER INH SCH ×2 (09:17→20:17)
[2019-12-29] MEDS: NICOTINE 21 MG/24 HR TDSY TD SCH (09:18)
[2019-12-29] MEDS: PREGABALIN 50 MG CAP PO SCH ×2 (09:30→20:21)
[2019-12-29] MEDS: AMPHETAMINE ASP/SULF/DEXTRAMPH ER 20 MG CAP PO SCH (09:30)
--- NOTE | 2019-12-29 10:07 | Orthopedic Progress Note ---
Date of Service December 29, 2019 Assessment & Plan (1) Neurogenic claudication due to lumbar spinal stenosis: Admission and Anticipated Discharge Date Admission Date: December 28, 2019 At this time we will initiate physical therapy monitor her ELZBIETA output anticipate possible discharge home Tuesday. Subjective Back pain is controlled leg pain improved Physical Exam Physical Exam: Patient appears comfortable is good strength testing. Results & Data ([facility]) Vital Signs (Past 12 Hours) Vital Signs Temp Pulse Pulse Resp BP Pulse Ox Pulse Ox 12/29/19 07:53 36.5 C 57 L 18 150/79 H 100 12/29/19 03:36 36.8 C 63 18 143/86 H 99 12/29/19 00:35 98 12/28/19 23:32 36.5 C 75 14 118/69 96
[2019-12-29] MEDS: METHADONE HCL 10 MG TAB PO SCH ×2 (12:02→20:16)
[2019-12-29] MEDS ORDERED: Nursing to Pharmacy Communication SCH (15:30)
[2019-12-29] MEDS ORDERED: AMPHETAMINE ASP/SULF/DEXTRAMPH 10 MG TAB PO SCH (16:00)
[2019-12-29] MEDS: DOCUSATE SODIUM/SENNA 50/8.6MG TAB PO SCH (20:17)
[2019-12-30] MEDS: OXYCODONE HCL IR 5 MG TAB (IMMEDIATE RELEASE) PO PRN ×3 (03:16→12:08)
[2019-12-30 05:58] LABS: Hematocrit (blood only) 34.3 % (37-47); Hemoglobin 10.9 g/dL (12.0-16.0); Mean Corpuscular Hgb Conc 31.8 g/dL (32-36); Mean Corpuscular Volume 94.5 fL (80-100); Mean Platelet Volume 9.1 fL (7.4-10.4); Platelet Count 258 K/uL (130-400); RDW Coefficient of Variation 14.6 % (11.5-14.5); RDW Standard Deviation 50.4 fL (36.4-46.3); Red Blood Count 3.63 M/uL (4.2-5.4); White Blood Count 9.18 K/uL (4.8-10.8)
[2019-12-30 06:12] LABS: BUN Creatinine Ratio 20.2 (10-20); Calcium 9.5 mg/dl (8.5-10.1); Creatinine Clr Calc Pharmacy 94.5 ml/min; Est GFR (African American) 117.9; Est GFR (Non-African American) 101.7; Potassium 4.6 mmol/L (3.5-5.1)
[2019-12-30] MEDS: METHADONE HCL 10 MG TAB PO SCH ×2 (08:26→11:45)
[2019-12-30] MEDS: NICOTINE 21 MG/24 HR TDSY TD SCH (08:26)
[2019-12-30] MEDS: PREGABALIN 50 MG CAP PO SCH (08:27)
[2019-12-30] MEDS: AMPHETAMINE ASP/SULF/DEXTRAMPH ER 20 MG CAP PO SCH (08:27)
[2019-12-30] MEDS: FLUTICASONE HFA 110MCG INHALER INH SCH (08:27)
[2019-12-30] MEDS: FLUTICASONE PROPIONATE NA SPR 16 GM BTL SCH (08:27)
[2019-12-30] MEDS: ESCITALOPRAM OXALATE 10 MG TAB PO SCH (08:28)
[2019-12-30] MEDS: PANTOprazole 40 MG TAB PO SCH (08:29)
[2019-12-30] MEDS: MULTIVITAMIN TAB PO SCH (08:29)
[2019-12-30] MEDS: BuPROPion SR 100 MG TABCR PO SCH (08:29)
[2019-12-30] MEDS: CHOLECALCIFEROL 1,000 UNITS 25 MCG TAB PO SCH (08:29)
[2019-12-30] MEDS: LORATADINE 10 MG TAB PO SCH (08:29)
--- NOTE | 2019-12-30 10:09 | Hospitalist Progress Note ---
Date of Service December 30, 2019 Assessment & Plan (1) Neurogenic claudication due to lumbar spinal stenosis: s/p lumbar decompression/fusion w/ Dr. Frank - Acute pain management, DVT prophylaxis, PT/OT per primary service - Discussed with patient the importance of incentive spirometry - mild anemia, cont. to monitor H&H - No need for blood transfusion (2) ADHD (attention deficit hyperactivity disorder): Reviewed Adderall dosing with patient - she states that she takes 20 mg extended-release in AM, 10 mg immediate release around 4 pm daily. Adjusted dosing to reflect this. (3) Asthma: On Flovent with prn albuterol as outpatient. 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 Adjusted orders to reflect this dosing. Thank you for this consultation. We will continue to follow this patient with you. [facility] at [phone]. Please do not hesitate to reach out with questions or concerns. Admission and Anticipated Discharge Date Admission Date: December 28, 2019 Subjective Patient is sitting up in bed, in no acute distress. Denies any fevers, chills, chest pain, shortness of breath. She is using incentive spirometry. Denies any abdominal pain, nausea or vomiting. Denies any dizziness or lightheadedness. Overall seems to be feeling quite well. Back pain seems to be well controlled. Patient's fianc at the bedside. Review of Systems Review of Systems: All systems reviewed & are unremarkable except as noted in HPI & below Constitutional: no fever and no chills Respiratory: no cough and no dyspnea Cardiovascular: no chest pain and no palpitations Gastrointestinal: no abdominal pain, no nausea and no vomiting Physical Exam Physical Exam: Constitutional: Middle-aged female sitting up in bed, in no acute distress WD/WN, vitals as above Eyes: + anicteric sclerae; no conjunctival abnormality, EOMI ENMT: external ear and nose normal, oropharynx normal Neck: trachea midline Respiratory: Auscultation: CTAB, no wheezing, rhonchi or crackles noted Cardiovascular: Rate/Rhythm: regular rate and regular rhythm Heart Sounds: no gallop, no murmur and no cardiac rub Extremities: no calf tenderness and no pedal edema Gastrointestinal (Abdomen): Inspection/Auscultation: normal bowel sounds; abdomen not distended Percussion/Palpation: abdomen soft; abdomen nontender Musculoskeletal: Head/Neck/Chest: normocephalic, head atraumatic and neck supple Extremities: no cyanosis and no clubbing Skin: no rashes, warm and dry no jaundice Neurologic: moves all extremities; no focal motor deficits Speech / Cognition: normal speech Psychiatric: A+Ox3, euthymic affect Results & Data Results & Data ([facility]) Vital Signs (Past 12 Hours) Vital Signs Temp Pulse Pulse Resp BP Pulse Ox 12/30/19 06:35 36.5 C 62 16 115/69 95 12/29/19 23:23 36.7 C 58 L 16 118/75 98 Laboratory Results 12/30/19 12/30/19 Range/Units 05:41 05:41 WBC 9.18 (4.8-10.8) K/uL RBC 3.63 L (4.2-5.4) M/uL Hgb 10.9 L (12.0-16.0) g/dL Hct 34.3 L (37-47) % MCV 94.5 (80-100) fL MCH 30.0 (25-34) pg MCHC 31.8 L (32-36) g/dL RDW Std Deviation 50.4 H (36.4-46.3) fL RDW Coeff of Jemima 14.6 H (11.5-14.5) % Plt Count 258 (130-400) K/uL MPV 9.1 (7.4-10.4) fL Sodium 142 (136-145) mmol/L Potassium 4.6 (3.5-5.1) mmol/L Chloride 106 (98-107) mmol/L Carbon Dioxide 34 H (21-32) mmol/L Anion Gap 1.0 L (3-11) BUN 14 (7-18) mg/dl Creatinine 0.70 (0.6-1.2) mg/dl Est Cr Clr Drug Dosing 94.5 ml/min Est GFR ( Amer) 117.9 Est GFR (Non-Af Amer) 101.7 BUN/Creatinine Ratio 20.2 H (10-20) Glucose 92 (70-99) mg/dl Calcium 9.5 (8.5-10.1) mg/dl Medications Administered Current Inpatient Medications Acetaminophen (Acetaminophen 500 Mg Tab) 1,000 mg PO Q8H PRN PRN Reason: MILD Pain Scale 1,2,3 & Pre PT Stop: 01/27/20 16:52 Al Hydrox/Mg Hydrox/Simethicone (Aluminum/Magnesium Susp 30 Ml Udc) 30 ml PO Q6H PRN PRN Reason: Dyspepsia Stop: 01/27/20 16:52 Albuterol (Albuterol 0.083% Nebu Soln 3 Ml Vial) 2.5 mg NEB Q6R PRN PRN Reason: Shortness Of Breath Or Wheezin Stop: 01/27/20 18:57 Amphetamine/Dextroamphetamine (Amphetamine Asp/Sulf/Dextramph Er 20 Mg Cap) 20 mg PO QAM [facility] Stop: 01/12/20 08:59 Last Admin: 12/30/19 08:27 Dose: 20 mg Documented by: Amphetamine/Dextroamphetamine (Amphetamine Asp/Sulf/Dextramph 10 Mg Tab) 10 mg PO QD@16 [facility] Stop: 01/12/20 15:59 Last Admin: 12/29/19 15:31 Dose: Not Given Documented by: Bisacodyl (Bisacodyl 10 Mg Supp) 10 mg MI DAILY PRN PRN Reason: Constipation Stop: 01/27/20 16:52 Bupropion HCl (Bupropion Sr 100 Mg Tabcr) 100 mg PO DAILY [facility] Stop: 01/28/20 08:59 Last Admin: 12/30/19 08:29 Dose: 100 mg Documented by: Diphenhydramine HCl (Diphenhydramine Hcl 25 Mg Cap) 25 mg PO Q6H PRN PRN Reason: Allergic Rhinitis/Insomnia Stop: 01/27/20 16:52 Escitalopram Oxalate (Escitalopram Oxalate 10 Mg Tab) 30 mg PO QAM [facility] Stop: 01/28/20 08:59 Last Admin: 12/30/19 08:28 Dose: 30 mg Documented by: Famotidine (Famotidine 20 Mg Tab) 20 mg PO Q12H PRN PRN Reason: Dyspepsia Stop: 01/27/20 16:52 Fluticasone Propionate (Fluticasone Propionate Na Spr 16 Gm Btl) 2 sprays NA BID [facility] Stop: 01/27/20 20:59 Last Admin: 12/30/19 08:27 Dose: 2 sprays Documented by: Fluticasone Propionate (Fluticasone Hfa 110mcg Inhaler) 2 puffs INH BID [facility] Stop: 01/27/20 20:59 Last Admin: 12/30/19 08:27 Dose: 2 puffs Documented by: Hydromorphone HCl (Hydromorphone Inj 0.5 Mg/0.5 Ml Syr) 0.5 mg IV Q3H PRN PRN Reason: MOD pain (scale 4-6) & Pre PT Stop: 01/11/20 16:52 Hydromorphone HCl (Hydromorphone Inj 1 Mg/Ml Syringe) 1 mg IV Q3H PRN PRN Reason: severe pain (scale 7-10) Stop: 01/11/20 16:52 Hydroxyzine HCl (Hydroxyzine Hcl 25 Mg Tab) 25 mg PO Q8H PRN PRN Reason: Anxiety Stop: 01/27/20 16:52 Promethazine HCl 12.5 mg/ (Sodium Chloride) 50.5 mls @ 204 mls/hr IV Q6H PRN PRN Reason: Nausea &/or Vomiting Stop: 01/27/20 16:52 Lorazepam (Ativan) 0.5 mg in 1 mls @ 0.5 mls/min IV Q8H PRN PRN Reason: Sedation/Anxiety Stop: 01/27/20 16:52 Influenza Virus Vaccine Quadrival (Do Not Administer Flu Vaccine) 1 ea N/A PRN PRN PRN Reason: Notification Stop: 01/27/20 16:52 Loratadine (Loratadine 10 Mg Tab) 10 mg PO DAILY [facility] Stop: 01/28/20 08:59 Last Admin: 12/30/19 08:29 Dose: 10 mg Documented by: Lorazepam (Lorazepam 0.5 Mg Tab) 0.5 mg PO Q8H PRN PRN Reason: Sedation/Anxiety Stop: 01/27/20 16:52 Magnesium Hydroxide (Magnesium Hydroxide Susp 30 Ml Udc) 30 ml PO DAILY PRN PRN Reason: Constipation Stop: 01/27/20 16:52 Methadone HCl (Methadone Hcl 10 Mg Tab) 10 mg PO QDL [facility] Stop: 01/12/20 11:29 Last Admin: 12/29/19 12:02 Dose: 10 mg Documented by: Methadone HCl (Methadone Hcl 10 Mg Tab) 20 mg PO BID@ [facility] Stop: 01/12/20 19:59 Last Admin: 12/30/19 08:26 Dose: 20 mg Documented by: Metoclopramide HCl (Metoclopramide Hcl Inj 5 Mg/Ml 2 Ml Vial) 10 mg IV Q6H PRN PRN Reason: Nausea &/or Vomiting Stop: 01/27/20 16:52 Miscellaneous (Remove Nicoderm Patch) 1 ea N/A DAILY@858 [facility] Stop: 01/28/20 08:58 Last Admin: 12/30/19 08:26 Dose: 1 ea Documented by: Multivitamins (Multivitamin Tab) [facility] Stop: 01/28/20 08:59 Last Admin: 12/30/19 08:29 Dose: 1 tab Documented by: Naloxone HCl (Naloxone Hcl 0.4 Mg/1 Ml Vial/Carp) 0.1 mg IV Q5M PRN; Protocol PRN Reason: Oversedation/Resp Depression Stop: 01/27/20 16:52 Nicotine (Nicotine 21 Mg/24 Hr Tdsy) 21 mg TD [facility] Stop: 01/27/20 19:14 Last Admin: 12/30/19 08:26 Dose: 21 mg Documented by: Ondansetron HCl (Ondansetron Inj 2 Mg/Ml 2 Ml Vial) 4 mg IV Q6H PRN PRN Reason: Nausea &/or Vomiting Stop: 01/27/20 16:52 Ondansetron HCl (Ondansetron 4 Mg Od Tab) 4 mg PO Q6H PRN PRN Reason: Nausea Stop: 01/27/20 16:52 Oxycodone HCl (Oxycodone Hcl Ir 5 Mg Tab (Immediate Release)) 5 - 10 mg PO Q4H PRN PRN Reason: Moderate-Severe Pain & Pre PT Stop: 01/11/20 16:52 Last Admin: 12/30/19 07:35 Dose: 10 mg Documented by: Pantoprazole Sodium (Pantoprazole 40 Mg Tab) 40 mg PO QAM [facility] Stop: 01/28/20 08:59 Last Admin: 12/30/19 08:29 Dose: 40 mg Documented by: Pneumococcal Polyvalent Vaccine (Do Not Administer Pneumococcal Vaccine) 1 ea N/A PRN PRN PRN Reason: Notification Stop: 01/27/20 16:52 Pregabalin (Pregabalin 50 Mg Cap) 50 mg PO BID [facility] Stop: 01/27/20 20:59 Last Admin: 12/30/19 08:27 Dose: 50 mg Documented by: Senna/Docusate Sodium (Docusate Sodium/Senna 50/8.6mg Tab) 2 tab PO HS [facility] Stop: 01/27/20 20:59 Last Admin: 12/29/19 20:17 Dose: Not Given Documented by: Sodium Biphosphate/Sodium Phosphate (Sod Phosphate/Sod Biphosphate Enema 132 Ml Btl) 132 ml MI ONE PRN PRN Reason: Constipation Stop: 01/27/20 16:52 Vitamin D (Cholecalciferol 1,000 Units 25 Mcg Tab) 1,000 units PO QAM [facility] Stop: 01/28/20 08:59 Last Admin: 12/30/19 08:29 Dose: 1,000 units Documented by: Zolpidem Tartrate (Zolpidem Tartrate 10 Mg Tab) 10 mg PO HS PRN PRN Reason: Sleep Stop: 01/27/20 16:52 Last Admin: 12/29/19 23:19 Dose: 10 mg Documented by: (1) ADHD (attention deficit hyperactivity disorder) Attention deficit-hyperactivity disorder type: unspecified Qualified Code(s): F90.9 - Attention-deficit hyperactivity disorder, unspecified type (2) Asthma Asthma severity: unspecified severity Asthma persistence: unspecified Asthma complication type: unspecified Qualified Code(s): J45.909 - Unspecified asthma, uncomplicated (3) Emphysema of lung Emphysema type: unspecified Qualified Code(s): J43.9 - Emphysema, unspecified (4) Depression Depression Type: major depressive disorder Major depression recurrence: recurrent Active/Remission status: remission status unspecified Qualified Code(s): F33.9 - Major depressive disorder, recurrent, unspecified (5) GERD (gastroesophageal reflux disease) Esophagitis presence: without esophagitis Qualified Code(s): K21.9 - Gastro- esophageal reflux disease without esophagitis
--- NOTE | 2019-12-30 11:15 | Discharge Summary ---
Date of Service December 30, 2019 Admission HPI Per Admitting Provider This is a 49-year-old female who presents with chronic back and leg symptoms after failing course of nonoperative care is here for surgical intervention. Principal Diagnosis Lumbar spinal stenosis with neurogenic claudication Discharge Data Allergies Allergy/AdvReac Type Severity Reaction Status Date / Time pollen extracts Allergy Unknown CONGESTION, Verified 12/28/19 10:38 RUNNY NOSE Consultations 12/28/19 16:53 Consult Case Management - Discharge Planning Routine Consult Hospitalist Routine Procedures Performed Operation Date: 12/28/19 11:35 Actual Procedures p L1-L2 Decompression, T11-L3 Fusion, Spinal Cord Monitoring - Ant Frank DO s L2- Hardware Removal, - Ant Frank DO Ordered Studies 12/28/19 11:35 FL fluoroscopy <1hr Routine FL lumbar spine 2-3V Routine Hospital Course (1) Neurogenic claudication due to lumbar spinal stenosis: Patient with thoracolumbar decompression fusion tolerated this well was taken the orthopedic floor possibly. Postop day 1 she was up and ambulating progressed to postop day #2. Back pain controlled. Leg symptoms improved. Neurologically intact. ELZBIETA drain decreasing probably. Subsequently discharged home. Discharge orders and instructions from the chart for further review. Total Time Total Time Spent Total Time Spent (In Minutes): 20 minutes Discharge Plan Discharge Items Patient Disposition: Home - Self-Care Reason For Visit: Spinal Stenosis, Lumbar Region without Neurogenic Discharge Diagnosis: Lumbar spinal stenosis with neurogenic claudication Activity: As commented below Non-emergency contact: Primary Care Provider Call non-emergency contact if: you have any medication questions Follow-up/Referrals: Haleigh Powers MD [Primary Care Provider] - Diet: Regular Addtl Attending Provider Instructions: ACTIVITY RECOMMENDATIONS: SELF CARE INSTRUCTIONS AFTER THORACIC/LUMBAR FUSIONS 1. You may walk to your tolerance. It is good exercise for your legs and back. Expect some back and intermittent leg aches and pains. 2. You may perform "counter-top" level activities (make a sandwich, alcon with a project, etc.). 3. No bending or lifting of more than 10 pounds or back twisting of any nature (roll like a log when turning in bed). 4. You may ride in a car for 20-30 minutes at a time. No driving until after your first visit with your doctor. 5. Frequent changes of position and restricting sitting to 30 minutes at a time will help limit the amount of back spasms and stiffness you may experience. 6. You may discontinue the use of ambulatory aids (cane, crutches, etc.) once your strength and confidence allow. 7. You may billing and insurance coordinator the shower and let water strike your incision when you arrive home at least once daily. Do not take a tub bath, sit in a hot tub or go into a swimming pool until after your first recheck in the office. SPECIAL CARE INSTRUCTIONS: VERY IMPORTANT TO READ AND REVIEW A. Your surgical incision has been closed with a cosmetic suture under the skin that will dissolve in about 6 weeks. In 14 days, you can use a pair of clean scissors and cut the suture that is left outside of the skin at the ends of your incision. 1. The small skin tapes can be removed 7 days after surgery if they have not fallen off by that point. 2. You may keep the wound open to air as much as possible to promote healing after post-op day number 5 unless told otherwise by your doctor. 3. If you think the wound looks like it is becoming infected (redness or worsening drainage) and/or you are experiencing fever, chill or worsening back pain and muscle spasms, contact the office so that we may evaluate you as soon as possible. B. Complications are uncommon, but please contact us if you have any signs or symptoms of: 1. wound infection (fever higher than 102.5 degrees F, redness, separation of wound, drainage, or increasing pain from the incision) 2. blood clots in legs (pain, swelling, redness and warmth in legs) 3. urinary tract infection (fever higher than 102.5 degrees F, burning upon urination or increased frequency of urination) 4. nerve problems (inability to walk on your toes or heels, numbness, loss of bowel or bladder control) 5. any other symptoms that concern you C. Please call the office at if you have any concerns or questions about your operation or recovery. D. No smoking! Smoking drastically decreases the chance of a solid fusion. E. Do not take any anti-inflammatory medications (Indocin, Advil, Motrin, Aspirin, Naprosyn, etc.) as these may inhibit the chance of a solid fusion. Tylenol is okay to take for pain. MANAGING PAIN AFTER SPINAL SURGERY 1. Narcotic medication is intended for short-term use and will be provided for surgical pain. Surgical pain usually lasts for a period of 4-6 weeks. Narcotic medication includes Percocet, Vicodin, Darvocet, Tylenol #3 or Lortab. 2. Longer-term pain is more appropriately treated with non-narcotic medication such as Tylenol ES. 3. Muscle spasm is not appropriately treated with narcotics. Muscle relaxers such as Soma, Flexeril or Skelaxin can be used along with Tylenol ES. 4. Remember that we all live with some "aches and pains". This is not unusual or uncommon after an injury or as we get older. a. Back pain is expected and may include muscle spasms for 4 to 6 weeks after surgery. The pain should gradually improve. If the pain worsens for no apparent reason, please contact the office. b. Intermittent leg pain may also be experienced and should not be concerned about unless it worsens for no apparent reason. If so, please contact the office. 5. We will provide appropriate medication within the normal guidelines of their prescribed use. We will also be very cautious and aware of potential abuse and extended duration of patients' medication needs. a. Pain medications are for your comfort and to assist with sleep and rest so that the tissue can heal. They are not provided in order to return to normal activity and should not be used through the day. To do so or worsening pain at night can result from ongoing tissue damage and development of tolerance to the prescribed medicine. 6. Please allow 2-3 days to process refills. Prescriptions will not be mailed but must be picked up at the office. FOLLOW UP VISIT: Keep your scheduled follow-up appointment. Any questions, please call the office at . Pending Studies at Discharge: No Stand-Alone Forms: [employer], Smoking Cessation Medications and DC Order Prescriptions: New oxycodone 5 mg tablet 5 mg PO Q6H PRN (Reason: pain, severe) Qty: 30 RF: 0 Continued fluticasone propionate [Flonase Allergy Relief] 50 mcg/actuation [place],Suspension 2 spray INTRANASAL BID RF: 0 cholecalciferol (vitamin D3) [Vitamin D3] 1,000 unit Tablet,Chewable 1,000 unit PO QAM RF: 0 methadone 10 mg Tablet 10 - 20 mg PO TID RF: 0 multivitamin Tablet 1 tab PO QAM RF: 0 dextroamphetamine-amphetamine [Adderall] 10 mg Tablet 20 mg PO QPM RF: 0 pregabalin [Lyrica] 50 mg Capsule 50 mg PO BID RF: 0 zolpidem [Ambien] 10 mg Tablet 10 mg PO HS PRN (Reason: Sleep) RF: 0 diclofenac sodium 75 mg Tablet,Delayed Release (Dr/Ec) 75 mg PO QAM RF: 0 escitalopram oxalate [Lexapro] 10 mg Tablet 30 mg PO QAM RF: 0 diclofenac sodium [Voltaren] 1 % Gel 2 g TOPICAL QID PRN (Reason: Pain) RF: 0 albuterol sulfate 90 mcg/actuation Hfa Aerosol Inhaler 2 puff INHALATION Q6H PRN (Reason: Wheezing) RF: 0 Nexium 1 tab PO QAM RF: 0 dextroamphetamine-amphetamine [Adderall XR] 20 mg Capsule,Extended Release 24hr 20 mg PO QAM RF: 0 dextroamphetamine-amphetamine [Adderall] 10 mg Tablet 10 mg PO DIRECTED RF: 0 bupropion HCl [Wellbutrin SR] 100 mg tablet sustained-release 12 hr 100 mg PO DAILY RF: 0 loratadine 10 mg tablet 10 mg PO DAILY RF: 0 Flovent HFA 110 mcg/actuation HFA aerosol inhaler 2 puff INHALATION BID RF: 0 Discharge Orders: Discharge Order (Routine); Ordered 12/30/19 Ordered By: Ant Frank Admission Data Admit Date/Time: 12/28/19 15:21 Attending Provider: Ant Frank Admit Provider: Ant Frank Primary Care Provider: Haleigh Powers Other Providers: Raudel Brooke
== END 2019-12-30 12:21 | disposition home or self-care (01) | DRG 455 ==
LOC: ASU 10:05 → 3E 15:21

== ENCOUNTER 2020-12-26 10:22 | Observation (INO) ==
--- NOTE | 2020-12-17 16:29 | PAT Medication Instructions ---
Medication Instructions Date of Service December 17, 2020 Home Medications albuterol sulfate 90 mcg/actuation aerosol inhaler 2 puff INHALATION Q6H PRN cholecalciferol (vitamin D3) 25 mcg (1,000 unit) chewable tablet (Vitamin D3) 1,000 unit PO QAM diclofenac sodium 1 % topical gel (Voltaren) 2 g TOPICAL QID PRN diclofenac sodium 75 mg tablet,delayed release 75 mg PO QAM fluticasone propionate 50 mcg/actuation nasal spray,suspension (Flonase Allergy Relief) 2 spray INTRANASAL BID methadone 10 mg tablet 10 - 20 mg PO TID multivitamin 1 tab PO QAM pregabalin 50 mg capsule (Lyrica) 50 mg PO BID zolpidem 10 mg tablet (Ambien) 10 mg PO HS PRN bupropion HCl 100 mg tablet,12 hr sustained-release (Wellbutrin SR) 100 mg PO QAM dextroamphetamine-amphetamine 10 mg tablet (Adderall) 10 mg PO BID fluticasone propionate 110 mcg/actuation HFA aerosol inhaler (Flovent HFA) 2 puff INHALATION BID loratadine 10 mg tablet 10 mg PO DAILY dextroamphetamine-amphetamine ER 25 mg 24hr capsule,extend release (Adderall XR) 25 mg PO QAM esomeprazole magnesium 20 mg capsule,delayed release (Nexium) 20 mg PO QAM ondansetron HCl 4 mg tablet (Zofran) 4 mg PO Q6H PRN vortioxetine 20 mg tablet 20 mg PO QAM Continue as directed methadone 10 mg tablet 10 - 20 mg PO TID (unless prescribing provider instructs otherwise) ASK your prescriber and surgeon diclofenac sodium 1 % topical gel (Voltaren) 2 g TOPICAL QID PRN diclofenac sodium 75 mg tablet,delayed release 75 mg PO QAM DO NOT take the morning of surgery cholecalciferol (vitamin D3) 25 mcg (1,000 unit) chewable tablet (Vitamin D3) 1,000 unit PO QAM multivitamin 1 tab PO QAM dextroamphetamine-amphetamine 10 mg tablet (Adderall) 10 mg PO BID loratadine 10 mg tablet 10 mg PO DAILY dextroamphetamine-amphetamine ER 25 mg 24hr capsule,extend release (Adderall XR) 25 mg PO QAM Take morning of surgery With a small sip of water, OTHERWISE NOTHING TO EAT OR DRINK AFTER MIDNIGHT: albuterol sulfate 90 mcg/actuation aerosol inhaler 2 puff INHALATION Q6H PRN ( use if needed; please bring with you to hospital day of surgery if possible) fluticasone propionate 50 mcg/actuation nasal spray,suspension (Flonase Allergy Relief) 2 spray INTRANASAL BID pregabalin 50 mg capsule (Lyrica) 50 mg PO BID bupropion HCl 100 mg tablet,12 hr sustained-release (Wellbutrin SR) 100 mg PO QAM fluticasone propionate 110 mcg/actuation HFA aerosol inhaler (Flovent HFA) 2 puff INHALATION BID esomeprazole magnesium 20 mg capsule,delayed release (Nexium) 20 mg PO QAM ondansetron HCl 4 mg tablet (Zofran) 4 mg PO Q6H PRN (if needed) vortioxetine 20 mg tablet 20 mg PO QAM Take evening before surgery albuterol sulfate 90 mcg/actuation aerosol inhaler 2 puff INHALATION Q6H PRN (if needed) fluticasone propionate 50 mcg/actuation nasal spray,suspension (Flonase Allergy Relief) 2 spray INTRANASAL BID pregabalin 50 mg capsule (Lyrica) 50 mg PO BID zolpidem 10 mg tablet (Ambien) 10 mg PO HS PRN (if needed) dextroamphetamine-amphetamine 10 mg tablet (Adderall) 10 mg PO BID fluticasone propionate 110 mcg/actuation HFA aerosol inhaler (Flovent HFA) 2 puff INHALATION BID ondansetron HCl 4 mg tablet (Zofran) 4 mg PO Q6H PRN (if needed) Other Notes If you have any questions please call us at [phone] or [phone] or [phone] or [phone]
--- NOTE | 2020-12-23 15:37 | Anesthesiology Consultation ---
Date of Service December 23, 2020 Assessment & Plan (1) Encounter for pre-operative examination: - COVID screening: Per assessment on 12/23: Travel screen negative, no known COVID-19 positive contacts or current COVID-19 related symptoms. Patient vacci nated. Surgeon arranging preop COVID testing (scheduled 12/25; [place] Awaiting results. - S/P L1-L2 decompression, T12-L3 fusion, L2-S1 hardware removal (12/28/19): Gr marichuy view 1, ETT 7.0 at [facility] - Hx PONV: Per patient "severe" PONV improved in the past with scope use perioperatively. Scope patch ordered for AM DOS. Chart Review Chart Review: Acceptable Risk for Surgery and Patient seen in Pre Admission Testing Teaching & Discussion Pre-Anesthesia Teaching/Discussion Notes: Instructed NPO after midnight before surgery,except medications with 15 cc of water. Medication instructions provided according to the PAT guidelines. History Surgery Operation Date: 12/29/20 11:55 Proposed Procedures p C3-C4 Anterior Cervical Discectomy and Fusion, Spinal Cord Monitoring - Ant Frank DO Height/Weight Height: 5 ft 7 in Weight: 75.8 kg Allergies Allergy/AdvReac Type Severity Reaction Status Date / Time pollen extracts Allergy Unknown Congestion, Verified 12/18/20 16:09 rhinorrhea Medications Home Medications Medication Instructions Recorded Confirmed Last Taken albuterol sulfate 90 mcg/actuation 2 puff INHALATION Q6H PRN 03/26/19 12/17/20 12/28/19 07:00 aerosol inhaler cholecalciferol (vitamin D3) 25 1,000 unit PO QAM 03/26/19 12/17/20 12/27/19 08:00 mcg (1,000 unit) chewable tablet (Vitamin D3) diclofenac sodium 1 % topical gel 2 g TOPICAL QID PRN 03/26/19 12/17/20 Unknown (Voltaren) diclofenac sodium 75 mg 75 mg PO QAM 03/26/19 12/17/20 12/18/19 tablet,delayed release fluticasone propionate 50 2 spray INTRANASAL BID 03/26/19 12/17/20 12/27/19 20:00 mcg/actuation nasal spray,suspension (Flonase Allergy Relief) methadone 10 mg tablet 10 - 20 mg PO TID 03/26/19 12/17/20 12/28/19 07:00 multivitamin 1 tab PO QAM 03/26/19 12/17/20 12/27/19 08:00 pregabalin 50 mg capsule (Lyrica) 50 mg PO BID 03/26/19 12/17/20 12/28/19 07:00 zolpidem 10 mg tablet (Ambien) 10 mg PO HS PRN 03/26/19 12/17/20 12/26/19 bupropion HCl 100 mg tablet,12 hr 100 mg PO QAM 12/28/19 12/17/20 Unknown sustained-release (Wellbutrin SR) dextroamphetamine-amphetamine 10 10 mg PO BID 12/28/19 12/17/20 12/27/19 12:30 mg tablet (Adderall) fluticasone propionate 110 2 puff INHALATION BID 12/28/19 12/17/20 Unknown mcg/actuation HFA aerosol inhaler (Flovent HFA) loratadine 10 mg tablet 10 mg PO DAILY 12/28/19 12/17/20 Unknown dextroamphetamine-amphetamine ER 25 mg PO QAM 12/17/20 12/17/20 Unknown 25 mg 24hr capsule,extend release (Adderall XR) esomeprazole magnesium 20 mg 20 mg PO QAM 12/17/20 12/17/20 Unknown capsule,delayed release (Nexium) ondansetron HCl 4 mg tablet 4 mg PO Q6H PRN 12/17/20 12/17/20 Unknown (Zofran) vortioxetine 20 mg tablet 20 mg PO QAM 12/17/20 12/17/20 Unknown Past Medical History Medical History ADHD (attention deficit hyperactivity disorder) Anxiety Asthma Well controlled Chronic fatigue syndrome Stable Depression Fibromyalgia Stable GERD (gastroesophageal reflux disease) Well controlled Migraine Hx, no recent issues Osteoarthritis Exercise / Class Metabolic Activity II 4-5 Yardwork/Stairs/Walk up hill (one FS (no CP, no SOB)) Past Surgical History Surgical History Fusion of spine Cervical Fusion of spine Lumbar x4 H/O arthroscopy of shoulder Right History of adenoidectomy History of arthroscopy Right knee x15 History of bowel resection D/t constipation History of carpal tunnel release R/L History of section X 2 History of colonoscopy History of discectomy History of foot surgery Left bunion History of herniorrhaphy X 3 History of hysterectomy History of laminectomy X 2 History of myringotomy History of open reduction and internal fixation (ORIF) procedure HIGH TIBIAL OSTEOTOMY-RIGHT History of spinal fusion L1-L2 decompression, T12-L3 fusion, L2-S1 hardware removal (12/28/19): Grade view 1, ETT 7.0 at [facility] History of tonsillectomy History of total knee replacement RIGHT Nausea and vomiting after administration of anesthetic agent Past Anesthesia History No Hx of Anesthesia Complications (except PONV) and No Family Hx of Anesthesia Complications History of PONV History of PONV (Improvement when scope patch use in the past) and Hx of Motion Sickness Social History Smoking Status: Current every day smoker tobacco type: cigarettes Smoking cigarettes per day: 3 cigs/day (tobacco use x 30 years) Do You Dip or Chew Tobacco: No Hx Alcohol Use: No Hx Substance Use: Yes substance use type: prescription drug (Methadone (for pain control)) Review of Systems Patient denies chest pain, shortness of breath, dyspnea on exertion, fever, chills, cough, wheezing, palpitations. Physical Exam Vital Signs VITALS BP 122/66 P 63 TEMP 98.4 SP02 99%RA RESP 16 PHYSICAL Mildly decreased cervical extension Full TMJ range of motion. TMD 3.5 finger breaths Mallampati Score 1 Dentition: intact, + crowns/caps Lungs: clear throughout to auscultation Cardiac: regular rate and rhythm, no murmurs noted Spine: normal Carotid arteries: negative bruit Extremities: no edema Lab Results Anesthesia Preop Results Results Anesthesia Widget: WBC 7.06 K/uL (4.8-10.8) 12/23/20 Hgb 13.4 g/dL (12.0-16.0) 12/23/20 Hct 41.9 % (37-47) 12/23/20 Plt 274 K/uL (130-400) 12/23/20 Na 138 mmol/L (136-145) 12/23/20 K 4.3 mmol/L (3.5-5.1) 12/23/20 Cl 102 mmol/L (98-107) 12/23/20 CO2 30 mmol/L (21-32) 12/23/20 BUN 17 mg/dl (7-18) 12/23/20 Creat 0.86 mg/dl (0.6-1.2) 12/23/20 Glucose Level 82 mg/dl (70-99) 12/23/20 PT 10.4 Seconds (9.0-12.0) 12/23/20 PTT 29.3 Seconds (21.0-31.0) 12/23/20 INR 1.0 (0.9-1.1) 12/23/20 Urine Color Dark Yellow 12/23/20 Urine Appearance Clear (Clear) 12/23/20 Urine pH 5.0 (4.5-7.5) 12/23/20 Urine Specific Calvin 1.025 (1.000-1.030) 12/23/20 Urine Protein Negative (Negative) 12/23/20 Urine Glucose (UA) Negative (Negative) 12/23/20 Urine Ketones Trace (Negative) H 12/23/20 Urine Blood 2+ (Negative) H 12/23/20 Urine Nitrite Negative (Negative) 12/23/20 Urine Bilirubin Negative (Negative) 12/23/20 Urine Urobilinogen Negative (Negative) 12/23/20 Urine Leukocyte Esterase Negative (Negative) 12/23/20 Urine WBC (Auto) 1-5 /hpf (0-5) 12/23/20 Urine RBC (Auto) 10-30 /hpf (0-4) H 12/23/20 Urine Hyaline Casts (Auto) 5-10 /lpf (0-5) H 12/23/20 Urine Epithelial Cells (Auto) >30 /lpf (0-5) H 12/23/20 Urine Bacteria (Auto) Negative (Negative) 12/23/20 Blood Type O Negative 12/23/20 Antibody Screen NEGATIVE 12/23/20 Testing Electrocardiogram Date: 12/23/20 SB at 58bpm. NS TWA. Chest X-Ray Date: 12/23/20 FINDINGS: Lung volumes are normal. Lungs are clear. There is no pneumothorax or pleural effusion. Cardiac size is normal. Mediastinal contours are normal. There is no evidence for pulmonary edema. Incidental note is made of postoperative findings within the cervical spine and the thoracolumbar spine, partially imaged on this exam. IMPRESSION: No acute cardiopulmonary findings. Echocardiogram Date: 08/29/15 LV wall motion is normal EF 55% RV systolic function is normal LV diastolic function is normal. Mild MR Mild TR No pulmonary HTN
[~2020-12-26 10:22] MED LIST changes: -CEFAZOLIN 1000MG 1,000 MG/7.5 ML SYR IV SCH; +DEXAMETHASONE SOD INJ 4 MG/ML VIAL ONE; +LIDOCAINE 2% 20 MG/ML 5 ML SYR IV ONE; -LR 15ML/HR IV SCH; +MIDAZOLAM HCL 1 MG/ML 2ML VIAL ONE; +ONDANSETRON INJ 2 MG/ML 2 ML VIAL ONE; +PROPOFOL IV EMULSION 10 MG/ML 20 ML VIAL IV ONE; +ROCURONIUM BROMIDE 10 MG/ML 5 ML VIAL IV ONE; +ceFAZolin 1000MG 1,000 MG/7.5 ML SYR IV SCH; +fentaNYL citrate 100 MCG/2 ML VIAL ONE
--- NOTE | 2020-12-26 10:45 | History & Physical Bridge Note ---
Date of Service December 26, 2020 History & Physical Bridge Note I have examined the patient, reviewed the History & Physical and in the interval since the performance of the History & Physical I have noted the following changes of clinical significance: no changes noted
--- NOTE | 2020-12-26 10:46 | History & Physical Report ---
Date of Service December 26, 2020 Assessment & Plan (1) Myelopathy 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: Plan: C3-C4 anterior cervical discectomy and fusion History of Present Illness Chief Complaint: Neck and bilateral arm pain and weakness Primary Care Provider: Haleigh Powers MD This is a 50-year-old female well-known to us that presents with decline in neurologic function has evidence of severe cervical spinal stenosis with myeloradiculopathy. She is here for surgical intervention. Allergies Allergy/AdvReac Type Severity Reaction Status Date / Time pollen extracts Allergy Unknown Congestion, Verified 12/18/20 16:09 rhinorrhea Home Medications Medication Instructions Recorded Confirmed Type albuterol sulfate 90 mcg/actuation 2 puff INHALATION Q6H PRN 03/26/19 12/17/20 History aerosol inhaler cholecalciferol (vitamin D3) 25 1,000 unit PO QAM 03/26/19 12/17/20 History mcg (1,000 unit) chewable tablet (Vitamin D3) diclofenac sodium 1 % topical gel 2 g TOPICAL QID PRN 03/26/19 12/17/20 History (Voltaren) diclofenac sodium 75 mg 75 mg PO QAM 03/26/19 12/17/20 History tablet,delayed release fluticasone propionate 50 2 spray INTRANASAL BID 03/26/19 12/17/20 History mcg/actuation nasal spray,suspension (Flonase Allergy Relief) methadone 10 mg tablet 10 - 20 mg PO TID 03/26/19 12/17/20 History multivitamin 1 tab PO QAM 03/26/19 12/17/20 History pregabalin 50 mg capsule (Lyrica) 50 mg PO BID 03/26/19 12/17/20 History zolpidem 10 mg tablet (Ambien) 10 mg PO HS PRN 03/26/19 12/17/20 History bupropion HCl 100 mg tablet,12 hr 100 mg PO QAM 12/28/19 12/17/20 History sustained-release (Wellbutrin SR) dextroamphetamine-amphetamine 10 10 mg PO BID 12/28/19 12/17/20 History mg tablet (Adderall) fluticasone propionate 110 2 puff INHALATION BID 12/28/19 12/17/20 History mcg/actuation HFA aerosol inhaler (Flovent HFA) loratadine 10 mg tablet 10 mg PO DAILY 12/28/19 12/17/20 History dextroamphetamine-amphetamine ER 25 mg PO QAM 12/17/20 12/17/20 History 25 mg 24hr capsule,extend release (Adderall XR) esomeprazole magnesium 20 mg 20 mg PO QAM 12/17/20 12/17/20 History capsule,delayed release (Nexium) ondansetron HCl 4 mg tablet 4 mg PO Q6H PRN 12/17/20 12/17/20 History (Zofran) vortioxetine 20 mg tablet 20 mg PO QAM 12/17/20 12/17/20 History Past Med/Surg History Medical History ADHD (attention deficit hyperactivity disorder) Anxiety Asthma Well controlled Chronic fatigue syndrome Stable Depression Fibromyalgia Stable GERD (gastroesophageal reflux disease) Well controlled Migraine Hx, no recent issues Osteoarthritis Surgical History Fusion of spine Cervical Fusion of spine Lumbar x4 H/O arthroscopy of shoulder Right History of adenoidectomy History of arthroscopy Right knee x15 History of bowel resection D/t constipation History of carpal tunnel release R/L History of section X 2 History of colonoscopy History of discectomy History of foot surgery Left bunion History of herniorrhaphy X 3 History of hysterectomy History of laminectomy X 2 History of myringotomy History of open reduction and internal fixation (ORIF) procedure HIGH TIBIAL OSTEOTOMY-RIGHT History of spinal fusion L1-L2 decompression, T12-L3 fusion, L2-S1 hardware removal (12/28/19): Grade view 1, ETT 7.0 at [facility] History of tonsillectomy History of total knee replacement RIGHT Nausea and vomiting after administration of anesthetic agent Social History Smoking Status: Current every day smoker Cigarettes Per Day: 3 cigs/day (tobacco use x 30 years); Second Hand Exposure: No; Do You Dip or Chew Tobacco: No; Tobacco Cessation Education Requested by Patient: No Hx Alcohol Use: No Hx Substance Use: Yes Substance Use Type Other:: METHADONE/ADDERALL (PRESCRIBED) Preferred Language: Martiniquais Communication Ability: Effective Locator Specialist Required: No Beliefs That Will Affect Care: None Current Living Situation: Family Other Information That Helps Us Care for You: No Feels Safe at Home: Yes Safety Concerns: Feels Safe At This Time Assistive Devices: Glasses Physical Exam Physical Exam: Patient is alert and oriented Heart regular rhythm Lungs clear to auscultation
[2020-12-26] MEDS ORDERED: Scopolamine 1 MG TDSY TD SCH (11:00)
[2020-12-26] MEDS ORDERED: LR 15ML/HR IV SCH (11:15)
[2020-12-26] MEDS ORDERED: PROMETHAZINE HCL 12.5 MG in SODIUM CHLORIDE 0.9% 50 ML IV PRN ×2 (11:19→15:20)
[2020-12-26] MEDS ORDERED: ATROPINE SULFATE 0.1 MG/ML 10ML SYR IV PRN (11:19)
[2020-12-26] MEDS ORDERED: ePHEDrine sulfate 50 MG/ML AMP IV PRN (11:19)
[2020-12-26] MEDS ORDERED: ONDANSETRON INJ 2 MG/ML 2 ML VIAL IV PRN ×2 (11:19→15:20)
[2020-12-26] MEDS ORDERED: ePHEDrine sulfate 50 MG/ML AMP ONE ×2 (13:07→13:10)
[2020-12-26] MEDS ORDERED: SODIUM CHLORIDE 0.9% INJ 10 ML VIAL ONE (13:07)
[2020-12-26] MEDS ORDERED: LIDOCAINE 2% 2 ML VIAL/AMP(20MG/ML) INFIL ONE (13:08)
[2020-12-26] MEDS ORDERED: ONDANSETRON INJ 2 MG/ML 2 ML VIAL ONE (13:08)
[2020-12-26] MEDS ORDERED: DEXAMETHASONE SOD INJ 4 MG/ML VIAL ONE (13:08)
[2020-12-26] MEDS ORDERED: PROPOFOL IV EMULSION 10 MG/ML 20 ML VIAL IV ONE (13:08)
[2020-12-26] MEDS ORDERED: FLOSEAL HEMOSTATIC MATRIX 10ML TOP ONE (13:08)
[2020-12-26] MEDS ORDERED: SUCCINYLCHOLINE 100MG/5ML SYR IV ONE (13:09)
[2020-12-26] MEDS ORDERED: ROCURONIUM BROMIDE 10 MG/ML 5 ML VIAL IV ONE (13:09)
[2020-12-26] MEDS ORDERED: GLYCOPYRROLATE 0.2 MG/ML VIAL ONE (13:10)
[2020-12-26] MEDS ORDERED: NEOSTIGMINE METHYLSULFATE 1 MG/ML 10ML VIAL ONE (13:10)
--- NOTE | 2020-12-26 13:11 | Operative Report ---
Post Operative Report Pre & Post Diagnosis Operation Date: 12/26/20 11:45 Pre-Op Diagnosis: Cervical spinal stenosis with myeloradiculopathy Post-Op Diagnosis: Same I identified the patient and participated in the time-out.: Yes Procedure Operation Date: 12/26/20 11:45 Actual Procedures #1 anterior cervical discectomy with bilateral foraminotomies C3-C4. #2 anterior cervical arthrodesis C3-C4. #3 placement of globus 8 mm coalition cage filled with I factor at C3-C4. Surgeon Ant Frank, DO [employer] Hank Humphries Estimated Blood Loss 10 Findings Consistent with Post-Op Diagnosis Specimens None Indications This is a 50-year-old female who presents with gross developing cervical myelopathy is here for urgent decompression fusion. Description of Procedure Patient was met with identified informed consent obtained. Patient was then taken to the operative suite underwent ablation placed in supine position Usama table with head Mcfarlane cathead worker. All bony prominences were well- padded eyes inspected to ensure no external pressure placed upon the. This p oint the anterior cervical spine was prepped and draped in a sterile fashion. Sharp dissection was placed over the right anterior aspect of the cervical spine overlying the C3-C4 disc space. Blunt dissection was then carried out down to and exposing the anterior cervical spine from C3-C4. Self-retaining retractors placed. Then performed a complete discectomy of C3-4 out to the uncovertebral joints bilaterally. Huxley distracting pins were utilized to assist in visualization. I removed all posterior annular fibers longitudinal ligament bilateral foraminotomies performed. Endplates were then burred to subcortical bleeding bone and a 8 mm globus coalition cage filled with I factor tapped in position and screwed into place with fluoroscopic assistance. Incision was then copiously irrigated explored to ensure no damage to surrounding structures remaining bleeding. 10 round ELZBIETA drain inserted. The incision was then closed with 2 Vicryl in the fascia and a 4 Monocryl for final skin closure. Steri- Strip sterile dressings placed. Patient will continue PACU stable condition. Please note spinal cord monitoring was utilized at the procedure no changes noted lastly Hank Humphries was present at the entire procedure and all the patient positioning complex portions of the surgery and final skin closure. I attest to the content of the Intraoperative Record and any orders documented therein. Any exceptions are noted below.
[2020-12-26] MEDS: fentaNYL citrate 100 MCG/2 ML VIAL IV PRN ×2 (13:39→13:44)
[2020-12-26] MEDS: HYDROmorphone INJ 2 MG/ML SYR/VIAL IV PRN ×4 (13:50→14:05)
--- NOTE | 2020-12-26 14:07 | Fluoroscopy Report ---
FL cervical 2-3V CLINICAL INDICATION: [place] ^ACDF. TECHNIQUE: 2 views were obtained with the C-arm in the OR with the above procedure. Total fluoroscopy time was 11.8 seconds. Total skin dose was 0.95 mGy. Comparison: Cervical fluoroscopy 12/23/2015 FINDINGS/IMPRESSION: 2 intraoperative images were obtained for guidance during placement of cervical fixation hardware. Please correlate with intraoperative fluoroscopy and operative report. ACT 112: Negative or not required by law. Electronically signed by: Luis Aldana M.D. 12/26/2020 2:06 PM
[2020-12-26] MEDS ORDERED: HYDROmorphone INJ 1 MG/ML SYRINGE ONE (14:23)
[2020-12-26] MEDS: HYDROmorphone INJ 0.5 MG/0.5 ML SYR IV PRN ×2 (14:25→14:34)
--- NOTE | 2020-12-26 14:51 | Anesthesiology Progress Note ---
Date of Service December 26, 2020 Anesthesia Post Procedure Vital Signs Vital Signs: Temp Pulse Pulse Resp BP Pulse Ox 12/26/20 14:45 36.3 C L 62 14 156/83 H 97 12/26/20 14:35 59 L 16 178/89 H 94 12/26/20 14:25 64 19 170/95 H 97 12/26/20 14:15 67 19 169/61 H 100 12/26/20 14:05 61 19 160/103 H 100 12/26/20 13:55 67 19 167/90 H 100 12/26/20 13:45 72 19 168/96 H 100 12/26/20 13:35 72 19 171/87 H 100 12/26/20 13:29 36.1 C L 77 18 152/94 H 98 12/26/20 11:00 36.5 C 56 L 20 162/82 H 98 Pain Intensity Neck: Pain Intensity: 5 Transfer of Care Handoff Completed per policy Notes Mental Status: alert / awake / arousable and participated in evaluation Patient Amnestic to Procedure: Yes Nausea / Vomiting: adequately controlled Pain: adequately controlled Airway Patency, RR, SpO2: stable & adequate BP & HR: stable & adequate Hydration State: stable & adequate Anesthetic Complications: no major complications apparent and Pt Satisfied with anesthetic care
[2020-12-26] MEDS ORDERED: ACETAMINOPHEN 500 MG TAB PO PRN (15:20)
[2020-12-26] MEDS ORDERED: LORazepam 0.5 MG TAB PO PRN (15:20)
[2020-12-26] MEDS ORDERED: LORazepam 0.5 MG/1 ML VIAL IV PRN (15:20)
[2020-12-26] MEDS ORDERED: ONDANSETRON 4 MG OD TAB PO PRN (15:20)
[2020-12-26] MEDS ORDERED: MAGNESIUM HYDROXIDE SUSP 30 ML UDC PO PRN (15:20)
[2020-12-26] MEDS ORDERED: NALOXONE HCL 0.4 MG/1 ML VIAL/CARP IV PRN (15:20)
[2020-12-26] MEDS ORDERED: DO NOT ADMINISTER FLU VACCINE PRN (15:20)
[2020-12-26] MEDS ORDERED: ALBUTEROL HFA 8 GM INHALER INH PRN (15:20)
[2020-12-26] MEDS ORDERED: hydrOXYzine HCl 25 MG TAB PO PRN (15:20)
[2020-12-26] MEDS ORDERED: bisacodyL 10 MG SUPP PR PRN (15:20)
[2020-12-26] MEDS ORDERED: SOD PHOSPHATE/SOD BIPHOSPHATE ENEMA 132 ML BTL PR PRN (15:20)
[2020-12-26] MEDS ORDERED: dexAMETHasone 8 MG in SYRINGE 0 ML IV PRN (15:20)
[2020-12-26] MEDS ORDERED: METOCLOPRAMIDE HCL INJ 5 MG/ML 2 ML VIAL IV PRN (15:20)
[2020-12-26] MEDS ORDERED: ZOLPIDEM TARTRATE 10 MG TAB PO PRN (15:20)
[2020-12-26] MEDS ORDERED: diphenhydrAMINE Capsule 25 MG CAP PO PRN (15:20)
[2020-12-26] MEDS ORDERED: RACEPINEPHRINE 2.25% NEBU SOLN 0.5 ML VIAL INH PRN (15:20)
[2020-12-26] MEDS ORDERED: ALUMINUM/MAGNESIUM SUSP 30 ML UDC PO PRN (15:20)
[2020-12-26] MEDS ORDERED: HYDROmorphone INJ 0.5 MG/0.5 ML SYR IV PRN (15:20)
[2020-12-26] MEDS ORDERED: DO NOT ADMINISTER PNEUMOCOCCAL VACCINE PRN (15:20)
[2020-12-26] MEDS ORDERED: ACETAMINOPHEN 1,000 MG/100 ML VIAL IV PRN (15:20)
[2020-12-26] MEDS ORDERED: FAMOTIDINE 20 MG TAB PO PRN (15:20)
[2020-12-26] MEDS ORDERED: traMADol HCL 50 MG TABLET PO PRN (15:20)
[2020-12-26] MEDS: LACTATED RINGER'S 1,000 ML IV SCH ×2 (15:38→20:08)
[2020-12-26] MEDS: Scopolamine CHECK PATCH PLACEMENT SCH (16:25)
[2020-12-26] MEDS: dexAMETHasone 6 MG in SYRINGE 0 ML IV SCH (17:18)
[2020-12-26] MEDS: HYDROmorphone INJ 1 MG/ML SYRINGE IV PRN (18:13)
[2020-12-26] MEDS: FLUTICASONE PROPIONATE NA SPR 16 GM BTL SCH (20:49)
[2020-12-26] MEDS: PREGABALIN 50 MG CAP PO SCH (20:50)
[2020-12-26] MEDS: ceFAZolin 1000MG 1,000 MG/7.5 ML SYR IV SCH (20:50)
[2020-12-26] MEDS: METHADONE HCL 10 MG TAB PO SCH (20:50)
[2020-12-26] MEDS ORDERED: DOCUSATE SODIUM/SENNA 50/8.6MG TAB PO SCH (21:00)
--- NOTE | 2020-12-26 21:17 | Hospitalist Consultation ---
Date of Consultation December 26, 2020 Assessment & Plan (1) Myelopathy 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: Final Assessment and Recommendations as follows : Cervical myelopathy/spinal stenosis Status post surgery Clinically well anxiety/mood disorder, stable on home regimen chronic pain/fibromyalgia on methadone asthma, stable ongoing tobacco abuse Hold parameters for multiple neuropsychotropic and narcotic medications for sedation/confusion. Nicotine gum as needed. SCDs as per postop orders Thank you very much for this consultation. Dr. Leiva will follow patient's progress. Text document was generated using [employer] voice recognition software. It may contain grammatical or spelling errors. Kindly contact undersigned for clarification of any documentation item in question. History of Present Illness Reason for Consultation: Medical management Requesting Physician: Dr. Frank Attending Physician: Ant Frank DO History of Present Illness PCP : Dr. Turcios History obtained from patient and records. Medical history significant for osteoarthritis, anxiety/mood disorder, chronic pain/fibromyalgia on Methadone, asthma, ongoing tobacco abuse. Last confinement December 2019 under [facility] for elective back surgery. Patient underwent elective neck surgery for cervical myelopathy/spinal stenosis today. No chest pain, no S OB postop. Pain somewhat tolerable as per patient. Patient with some tingling in the arms and legs. Medical History as above Surgical History : Knee surgery, carpal tunnel surgery, section, subtotal colectomy with ileocolic anastomosis, D&C, foot/toe surgery, laparoscopic cholecystectomy, BTL, back surgery x4, neck surgeries, tonsillectomy, JOSEP, umbilical hernia repair Family History : Breast cancer, lung cancer, colon cancer Personal/Social history : 3 cigarettes/day, no EtOH intake, disabled Allergies Allergy/AdvReac Type Severity Reaction Status Date / Time pollen extracts Allergy Unknown Congestion, Verified 12/26/20 10:54 rhinorrhea Home Medications Medication Instructions Recorded Confirmed Type albuterol sulfate 90 mcg/actuation 2 puff INHALATION Q6H PRN 03/26/19 12/26/20 History aerosol inhaler cholecalciferol (vitamin D3) 25 1,000 unit PO QAM 03/26/19 12/26/20 History mcg (1,000 unit) chewable tablet (Vitamin D3) diclofenac sodium 1 % topical gel 2 g TOPICAL QID PRN 03/26/19 12/26/20 History (Voltaren) diclofenac sodium 75 mg 75 mg PO QAM 03/26/19 12/26/20 History tablet,delayed release fluticasone propionate 50 2 spray INTRANASAL BID 03/26/19 12/26/20 History mcg/actuation nasal spray,suspension (Flonase Allergy Relief) methadone 10 mg tablet 10 - 20 mg PO TID 03/26/19 12/26/20 History multivitamin 1 tab PO QAM 03/26/19 12/26/20 History pregabalin 50 mg capsule (Lyrica) 50 mg PO BID 03/26/19 12/26/20 History zolpidem 10 mg tablet (Ambien) 10 mg PO HS PRN 03/26/19 12/26/20 History bupropion HCl 100 mg tablet,12 hr 100 mg PO QAM 12/28/19 12/26/20 History sustained-release (Wellbutrin SR) dextroamphetamine-amphetamine 10 10 mg PO BID 12/28/19 12/26/20 History mg tablet (Adderall) fluticasone propionate 110 2 puff INHALATION BID 12/28/19 12/26/20 History mcg/actuation HFA aerosol inhaler (Flovent HFA) loratadine 10 mg tablet 10 mg PO DAILY 12/28/19 12/26/20 History dextroamphetamine-amphetamine ER 25 mg PO QAM 12/17/20 12/26/20 History 25 mg 24hr capsule,extend release (Adderall XR) esomeprazole magnesium 20 mg 20 mg PO QAM 12/17/20 12/26/20 History capsule,delayed release (Nexium) ondansetron HCl 4 mg tablet 4 mg PO Q6H PRN 12/17/20 12/26/20 History (Zofran) vortioxetine 20 mg tablet 20 mg PO QAM 12/17/20 12/26/20 History oxycodone 5 mg tablet 5 mg PO Q6H PRN #12 tab 12/27/20 Rx tramadol 50 mg tablet 50 mg PO Q6H PRN #20 tab 12/27/20 Rx Patient History Medical History ADHD (attention deficit hyperactivity disorder) Anxiety Asthma Well controlled Chronic fatigue syndrome Stable Depression Fibromyalgia Stable GERD (gastroesophageal reflux disease) Well controlled Migraine Hx, no recent issues Osteoarthritis Surgical History Fusion of spine Cervical Fusion of spine Lumbar x4 H/O arthroscopy of shoulder Right History of adenoidectomy History of arthroscopy Right knee x15 History of bowel resection D/t constipation History of carpal tunnel release R/L History of section X 2 History of colonoscopy History of discectomy History of foot surgery Left bunion History of herniorrhaphy X 3 History of hysterectomy History of laminectomy X 2 History of myringotomy History of open reduction and internal fixation (ORIF) procedure HIGH TIBIAL OSTEOTOMY-RIGHT History of spinal fusion L1-L2 decompression, T12-L3 fusion, L2-S1 hardware removal (12/28/19): Grade view 1, ETT 7.0 at [facility] History of tonsillectomy History of total knee replacement RIGHT Nausea and vomiting after administration of anesthetic agent Social History Smoking Status: Current every day smoker Cigarettes Per Day: 3 cigs/day (tobacco use x 30 years); Second Hand Exposure: No; Do You Dip or Chew Tobacco: No; Tobacco Cessation Education Requested by Patient: No Hx Alcohol Use: No Hx Substance Use: Yes Substance Use Type Other:: METHADONE/ADDERALL (PRESCRIBED) Preferred Language: Bahraini Communication Ability: Effective Web Machine Tender Required: No Beliefs That Will Affect Care: None Current Living Situation: Family Other Information That Helps Us Care for You: No Feels Safe at Home: Yes Safety Concerns: Feels Safe At This Time Assistive Devices: None Review of Systems Review of Systems: As per HPI, all 10 systems reviewed, all other ROS negative Physical Exam Physical Exam: GENERAL: Slightly uncomfortable, pleasant, no respiratory distress SKIN: Normal color, warm HEENT: [place] palpebral conjunctivae, no ptosis, dry buccal mucosa NECK : Cervical collar in place, mobility not assessed CHEST : CTA, no tenderness HEART : RRR, no obvious murmurs ABDOMEN: Some distention, nontender EXTREMITIES : No LE swelling/tenderness, no other conspicuous deformities noted NEUROLOGIC : Coherent, no facial asymmetry, no other gross focality Results & Data Results & Data ([facility]) Vital Signs (Past 12 Hours) Vital Signs Temp Pulse Pulse Pulse Resp BP Pulse Ox 12/26/20 20:53 66 16 96 12/26/20 18:14 36.5 C 62 18 139/81 99 12/26/20 17:10 60 16 136/85 95 12/26/20 16:10 58 L 18 137/77 93 12/26/20 15:44 63 18 97 12/26/20 15:38 62 16 139/81 94 12/26/20 15:10 36.4 C L 69 16 152/82 H 94 12/26/20 14:55 64 14 166/77 H 95 12/26/20 14:45 36.3 C L 62 14 156/83 H 97 12/26/20 14:35 59 L 16 178/89 H 94 12/26/20 14:25 64 19 170/95 H 97 12/26/20 14:15 67 19 169/61 H 100 12/26/20 14:05 61 19 160/103 H 100 12/26/20 13:55 67 19 167/90 H 100 12/26/20 13:45 72 19 168/96 H 100 12/26/20 13:35 72 19 171/87 H 100 12/26/20 13:29 36.1 C L 77 18 152/94 H 98 12/26/20 11:00 36.5 C 56 L 20 162/82 H 98 Pulse Ox 12/26/20 20:53 12/26/20 18:14 12/26/20 17:10 12/26/20 16:10 12/26/20 15:44 12/26/20 15:38 12/26/20 15:10 94 12/26/20 14:55 12/26/20 14:45 12/26/20 14:35 12/26/20 14:25 12/26/20 14:15 12/26/20 14:05 12/26/20 13:55 12/26/20 13:45 12/26/20 13:35 12/26/20 13:29 12/26/20 11:00 Laboratory Results Laboratory Results Blood Type O Negative 12/26/20 10:41 Antibody Screen NEGATIVE 12/26/20 10:41 Impressions Cervical Spine X-Ray 12/26/20 11:45 FL cervical 2-3V CLINICAL INDICATION: [place] ^ACDF. TECHNIQUE: 2 views were obtained with the C-arm in the OR with the above procedure. Total fluoroscopy time was 11.8 seconds. Total skin dose was 0.95 mGy. Comparison: Cervical fluoroscopy 12/23/2015 FINDINGS/IMPRESSION: 2 intraoperative images were obtained for guidance during placement of cervical fixation hardware. Please correlate with intraoperative fluoroscopy and operative report. ACT 112: Negative or not required by law. Electronically signed by: Luis Aldana M.D. 12/26/2020 2:06 PM
[2020-12-26] MEDS: oxyCODONE HCL IR 5 MG TAB (IMMEDIATE RELEASE) PO PRN (21:36)
[2020-12-26] MEDS ORDERED: NICOTINE POLACRILEX 2 MG GUM MT PRN (22:05)
[2020-12-27] MEDS: Scopolamine CHECK PATCH PLACEMENT SCH ×2 (00:10→07:48)
[2020-12-27] MEDS: HYDROmorphone INJ 1 MG/ML SYRINGE IV PRN (00:18)
[2020-12-27] MEDS: dexAMETHasone 6 MG in SYRINGE 0 ML IV SCH ×2 (00:24→06:07)
[2020-12-27] MEDS: oxyCODONE HCL IR 5 MG TAB (IMMEDIATE RELEASE) PO PRN ×2 (03:52→09:45)
[2020-12-27] MEDS ORDERED: DEXTROAMPHETAMINE/AMPHETAMINE ER 5 MG CAP PO SCH ×2 (06:00→09:00)
[2020-12-27] MEDS ORDERED: AMPHETAMINE ASP/SULF/DEXTRAMPH ER 20 MG CAP PO SCH ×2 (06:00→09:00)
[2020-12-27] MEDS ORDERED: POLYETHYLENE (MIRALAX) 17 GM PACK PO SCH (06:00)
[2020-12-27] MEDS: METHADONE HCL 10 MG TAB PO SCH (06:07)
[2020-12-27] MEDS: ceFAZolin 1000MG 1,000 MG/7.5 ML SYR IV SCH (06:07)
[2020-12-27] MEDS: FLUTICASONE PROPIONATE NA SPR 16 GM BTL SCH (07:50)
--- NOTE | 2020-12-27 08:32 | Discharge Summary ---
Date of Service December 27, 2020 Principal Diagnosis Cervical spinal stenosis with myeloradiculopathy Discharge Data Allergies Allergy/AdvReac Type Severity Reaction Status Date / Time pollen extracts Allergy Unknown Congestion, Verified 12/26/20 10:54 rhinorrhea Consultations 12/26/20 15:20 Consult Hospitalist Routine Procedures Performed Operation Date: 12/26/20 11:45 Actual Procedures p C3-C4 Anterior Cervical Discectomy and Fusion, Spinal Cord Monitoring - Ant Frank DO Ordered Studies 12/26/20 11:45 FL cervical 2-3V Routine Hospital Course (1) Myelopathy 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: Patient underwent anterior cervical discectomy fusion trial as well as taken orthopedic for possibly. Postop day one she was swallowing well. No hoarseness. She felt her arms and leg symptoms were somewhat improved. She is ambulating independently. Pain well controlled. Subsequently discharged home. Discharge orders instructions from the chart for further review. Total Time Total Time Spent Total Time Spent (In Minutes): 20 minutes Discharge Plan Discharge Items Patient Disposition: Home - Self-Care Reason For Visit: Spinal Stenosis, Cervical Region Discharge Diagnosis: Cervical spinal stenosis with myeloradiculopathy Activity: As commented below Non-emergency contact: Primary Care Provider Call non-emergency contact if: you have any medication questions Follow-up/Referrals: Haleigh Powers MD [Primary Care Provider] - Diet: Regular Addtl Attending Provider Instructions: ACTIVITY RECOMMENDATIONS: SELF CARE INSTRUCTIONS AFTER CERVICAL FUSIONS 1. No smoking. Smoking drastically decreases the chance of a solid fusion. 2. No bending, lifting more than 5 pounds, or twisting (roll like a log when turning in bed). 3. You may shower 3 days after surgery. Thoroughly dry wound. Do not soak in the tub. 4. Cervical collar: Must be worn at all times including sleeping. You may remove the brace only to bath, eat and if you are sitting in a recliner. 5. Please walk as much as you can for exercise. Gradually increase the distance that you walk as your endurance increases. SPECIAL CARE INSTRUCTIONS: VERY IMPORTANT TO READ AND REVIEW A. Do not take any anti-inflammatory medications (i.e. Indocin, Advil, Aspirin, Naprosyn, Aleve, Motrin, etc.) as these may inhibit the chance of a solid fusion. Tylenol is okay to take. B. Your surgical incision has been closed with a cosmetic suture under the skin that will dissolve in about 6 weeks. In 14 days, you can use a pair of clean scissors and cut the suture that is left outside of the skin at the ends of your incision. C. Complications are uncommon, but please contact us if you have any signs or symptoms of: 1. wound infection (fever higher than 102.5 degrees F, redness, separation of wound, drainage, or increasing pain from the incision) 2. blood clots in legs (pain, swelling, redness and warmth in legs) 3. urinary tract infection (fever higher than 102.5 degrees, burning upon urination or increased frequency of urination) 4. nerve problems (inability to walk on your toes or heels, numbness, loss of bowel or bladder control) 5. any other symptoms that concern you. D. Please call the office at if you have any concerns or questions about your operation or recovery. MANAGING PAIN AFTER SPINAL SURGERY 1. Narcotic medication is intended for short-term use and will be provided for surgical pain. Surgical pain usually lasts for a period of 4-6 weeks. Narcotic medication includes Percocet, Vicodin, Darvocet, Tylenol #3 or Lortab. 2. Longer-term pain is more appropriately treated with non-narcotic medication such as Tylenol ES. 3. Muscle spasm is not appropriately treated with narcotics. Muscle relaxers such as Soma, Flexeril or Skelaxin can be used along with Tylenol ES. 4. Remember that we all live with some "aches and pains". This is not unusual or uncommon after an injury or as we get older. 5. We will provide appropriate medication within the normal guidelines of their prescribed use. We will also be very cautious and aware of potential abuse and extended duration of patients' medication needs. 6. Please allow 2-3 days to process refills. Prescriptions will not be mailed but must be picked up at the office. FOLLOW UP VISIT: Keep your scheduled follow-up appointment. Any questions, please call the office at . Pending Studies at Discharge: No Stand-Alone Forms: My [employer], Smoking Cessation Medications and DC Order Prescriptions: New tramadol 50 mg tablet 50 mg PO Q6H PRN (Reason: pain, moderate) Qty: 20 RF: 0 oxycodone 5 mg tablet 5 mg PO Q6H PRN (Reason: pain, severe) Qty: 12 RF: 0 Continued fluticasone propionate [Flonase Allergy Relief] 50 mcg/actuation [place],Suspension 2 spray INTRANASAL BID RF: 0 cholecalciferol (vitamin D3) [Vitamin D3] 1,000 unit Tablet,Chewable 1,000 unit PO QAM RF: 0 methadone 10 mg Tablet 10 - 20 mg PO TID RF: 0 multivitamin Tablet 1 tab PO QAM RF: 0 pregabalin [Lyrica] 50 mg Capsule 50 mg PO BID RF: 0 zolpidem [Ambien] 10 mg Tablet 10 mg PO HS PRN (Reason: Sleep) RF: 0 diclofenac sodium 75 mg Tablet,Delayed Release (Dr/Ec) 75 mg PO QAM RF: 0 diclofenac sodium [Voltaren] 1 % Gel 2 g TOPICAL QID PRN (Reason: Pain) RF: 0 albuterol sulfate 90 mcg/actuation Hfa Aerosol Inhaler 2 puff INHALATION Q6H PRN (Reason: Wheezing) RF: 0 dextroamphetamine-amphetamine [Adderall] 10 mg Tablet 10 mg PO BID RF: 0 bupropion HCl [Wellbutrin SR] 100 mg tablet sustained-release 12 hr 100 mg PO QAM RF: 0 loratadine 10 mg tablet 10 mg PO DAILY RF: 0 Flovent HFA 110 mcg/actuation HFA aerosol inhaler 2 puff INHALATION BID RF: 0 esomeprazole magnesium [Nexium] 20 mg Capsule,Delayed Release(Dr/Ec) 20 mg PO QAM RF: 0 dextroamphetamine-amphetamine [Adderall XR] 25 mg Capsule,Extended Release 24hr 25 mg PO QAM RF: 0 vortioxetine 20 mg Tablet 20 mg PO QAM RF: 0 ondansetron HCl [Zofran] 4 mg Tablet 4 mg PO Q6H PRN (Reason: Nausea) RF: 0 Discharge Orders: Discharge Order (Routine); Ordered 12/27/20 Ordered By: Atn Frank Admission Data Admit Date/Time: 12/26/20 13:15 Attending Provider: Ant Frank Admit Provider: Ant Frank Primary Care Provider: Haleigh Powers Other Providers: Rody Leiva
[2020-12-27] MEDS ORDERED: AMPHETAMINE ASP/SULF/DEXTRAMPH 10 MG TAB PO SCH (09:00)
[2020-12-27] MEDS ORDERED: PANTOprazole 40 MG TAB PO SCH (09:00)
[2020-12-27] MEDS ORDERED: LORATADINE 10 MG TAB PO SCH (09:00)
[2020-12-27] MEDS ORDERED: MULTIVITAMIN TAB PO SCH (09:00)
[2020-12-27] MEDS ORDERED: buPROPion SR 100 MG TABCR PO SCH (09:00)
[2020-12-27] MEDS: PREGABALIN 50 MG CAP PO SCH (10:16)
[2020-12-27] MEDS ORDERED: METHADONE HCL 10 MG TAB PO SCH (14:00)
[2020-12-29] MEDS ORDERED: ceFAZolin 1000MG 1,000 MG/7.5 ML SYR IV SCH (06:00)
[2020-12-29] MEDS ORDERED: ACETAMINOPHEN 500 MG TAB PO SCH (06:00)
[2020-12-29] MEDS ORDERED: Scopolamine 1 MG TDSY TD SCH (06:00)
[2020-12-29] MEDS ORDERED: CeleBREX 200 MG CAP PO SCH (06:00)
[2020-12-29] MEDS ORDERED: GABAPENTIN 900 MG DOSE PO SCH (06:00)
[2020-12-29] MEDS ORDERED: LR 15ML/HR IV SCH (06:00)
[2020-12-29] MEDS ORDERED: Scopolamine CHECK PATCH PLACEMENT SCH (16:00)
== END 2020-12-27 11:26 | disposition home or self-care (01) ==
LOC: ASU 10:22 → INTOOBSV 13:15 → 3E 13:15

== ENCOUNTER 2023-12-30 08:59 | Inpatient (IN) ==
--- NOTE | 2023-12-16 14:37 | PAT Medication Instructions ---
Medication Instructions Date of Service December 16, 2023 Home Medications albuterol sulfate 90 mcg/actuation aerosol inhaler 2 puff inhalation Q6H PRN cholecalciferol (vitamin D3) 25 mcg (1,000 unit) chewable tablet (Vitamin D3) 1,000 unit PO QAM diclofenac sodium 1 % topical gel (Voltaren) 2 g topical QID PRN fluticasone propionate 50 mcg/actuation nasal spray,suspension (Flonase Allergy Relief) 2 spray intranasal BID PRN methadone 10 mg tablet 7.5 mg PO BID multivitamin 1 tab PO QAM pregabalin 50 mg capsule (Lyrica) 150 mg PO BID bupropion HCl 100 mg tablet,12 hr sustained-release (Wellbutrin SR) 150 mg PO QAM fluticasone propionate 110 mcg/actuation HFA aerosol inhaler (Flovent HFA) 2 puff inhalation BID PRN esomeprazole magnesium 20 mg capsule,delayed release (Nexium) 20 mg PO QAM ondansetron HCl 4 mg tablet (Zofran) 4 mg PO Q6H PRN escitalopram oxalate 20 mg tablet (Lexapro) 20 mg PO HS methadone 5 mg tablet 5 mg PO .NOON methylphenidate HCl 54 mg tablet,extended release 24 hr (Concerta) 54 mg PO QAM pregabalin 50 mg capsule (Lyrica) 50 mg PO QPM Continue as directed methadone 5 mg tablet 5 mg PO .NOON STOP taking 24 hours before surgery diclofenac sodium 1 % topical gel (Voltaren) 2 g topical QID PRN DO NOT take the morning of surgery cholecalciferol (vitamin D3) 25 mcg (1,000 unit) chewable tablet (Vitamin D3) 1,000 unit PO QAM multivitamin 1 tab PO QAM methylphenidate HCl 54 mg tablet,extended release 24 hr (Concerta) 54 mg PO QAM Take morning of surgery With a small sip of water, OTHERWISE NOTHING TO EAT OR DRINK AFTER MIDNIGHT: albuterol sulfate 90 mcg/actuation aerosol inhaler 2 puff inhalation Q6H PRN(use if needed; please bring with you to hospital day of surgery if possible) fluticasone propionate 50 mcg/actuation nasal spray,suspension (Flonase Allergy Relief) 2 spray intranasal BID PRN(if needed) methadone 10 mg tablet 7.5 mg PO BID pregabalin 50 mg capsule (Lyrica) 150 mg PO BID bupropion HCl 100 mg tablet,12 hr sustained-release (Wellbutrin SR) 150 mg PO QAM fluticasone propionate 110 mcg/actuation HFA aerosol inhaler (Flovent HFA) 2 puff inhalation BID PRN(if needed) esomeprazole magnesium 20 mg capsule,delayed release (Nexium) 20 mg PO QAM ondansetron HCl 4 mg tablet (Zofran) 4 mg PO Q6H PRN(if needed) Take evening before surgery albuterol sulfate 90 mcg/actuation aerosol inhaler 2 puff inhalation Q6H PRN(if needed) fluticasone propionate 50 mcg/actuation nasal spray,suspension (Flonase Allergy Relief) 2 spray intranasal BID PRN(if needed) methadone 10 mg tablet 7.5 mg PO BID pregabalin 50 mg capsule (Lyrica) 150 mg PO BID fluticasone propionate 110 mcg/actuation HFA aerosol inhaler (Flovent HFA) 2 puff inhalation BID PRN(if needed) ondansetron HCl 4 mg tablet (Zofran) 4 mg PO Q6H PRN(if needed) escitalopram oxalate 20 mg tablet (Lexapro) 20 mg PO HS pregabalin 50 mg capsule (Lyrica) 50 mg PO QPM Other Notes If you have any questions please call us at [phone] or [phone] or [phone] or [phone]
--- NOTE | 2023-12-23 09:06 | Anesthesiology Consultation ---
Date of Service December 23, 2023 Assessment & Plan (1) Encounter for pre-operative examination: - PCP clearance 12/26/23 [facility]: "...preop clearance for back surgery...vomiting after the anesthesia...cleared for surgery...low risk...cleared for scheduled surgery..." Chart Review Chart Review: Acceptable Risk for Surgery and Patient seen in Pre Admission Testing Teaching & Discussion Pre-Anesthesia Teaching/Discussion Notes: Instructed NPO after midnight before surgery, except medications with 15 cc of water. Medication instructions provided according to the PAT guidelines. History Surgery Operation Date: 12/30/23 10:20 Proposed Procedures p T11-L1 Hardware Removal, Revision Decompression and Fusion T11-L2, Spinal Cord Monitoring - Ant Frank, Height/Weight Height: 5 ft 6.5 in Weight: 86.6 kg Allergies Allergy/AdvReac Type Severity Reaction Status Date / Time pollen extracts Allergy Unknown Congestion, Verified 12/30/23 09:22 rhinorrhea Medications Home Medications Medication Instructions Recorded Confirmed Last Taken albuterol sulfate 90 mcg/actuation 2 puff inhalation Q6H PRN Wheezing 03/26/19 12/30/23 12/30/23 07:00 aerosol inhaler cholecalciferol (vitamin D3) 25 1,000 unit PO QAM 03/26/19 12/30/23 12/29/23 07:00 mcg (1,000 unit) chewable tablet (Vitamin D3) diclofenac sodium 1 % topical gel 2 g topical QID PRN Pain 03/26/19 12/30/23 12/16/23 (Voltaren) fluticasone propionate 50 2 spray intranasal BID PRN 03/26/19 12/30/23 12/29/23 20:00 mcg/actuation nasal Congestion spray,suspension (Flonase Allergy Relief) methadone 10 mg tablet 7.5 mg PO BID 03/26/19 12/30/23 12/30/23 07:00 multivitamin 1 tab PO QAM 03/26/19 12/30/23 12/29/23 07:00 pregabalin 50 mg capsule (Lyrica) 150 mg PO BID 03/26/19 12/30/23 12/30/23 07:00 bupropion HCl 100 mg tablet,12 hr 150 mg PO QAM 12/28/19 12/30/23 12/30/23 07:00 sustained-release (Wellbutrin SR) fluticasone propionate 110 2 puff inhalation BID PRN sob 12/28/19 12/30/23 12/30/23 07:00 mcg/actuation HFA aerosol inhaler (Flovent HFA) esomeprazole magnesium 20 mg 20 mg PO QAM 12/17/20 12/30/23 12/30/23 07:00 capsule,delayed release (Nexium) ondansetron HCl 4 mg tablet 4 mg PO Q6H PRN Nausea 12/17/20 12/30/23 12/02/23 (Zofran) escitalopram oxalate 20 mg tablet 20 mg PO HS 12/15/23 12/30/23 12/29/23 20:00 (Lexapro) methadone 5 mg tablet 5 mg PO .NOON 12/15/23 12/30/23 12/29/23 12:00 methylphenidate HCl 54 mg 54 mg PO QAM 12/15/23 12/30/23 12/29/23 07:00 tablet,extended release 24 hr (Concerta) pregabalin 50 mg capsule (Lyrica) 50 mg PO QPM 12/15/23 12/30/23 12/29/23 12:00 Active Medications Generic Name Dose Route Start Last Admin Trade Name Archana PRN Reason Stop Dose Admin Acetaminophen 1,000 mg 12/30/23 06:00 12/30/23 10:01 Acetaminophen 500 Mg Tab PO 12/30/23 18:00 1,000 mg PREOP JAQUELIN Administration Celecoxib 200 mg 12/30/23 06:00 12/30/23 10:02 Celebrex 200 Mg Cap PO 12/30/23 18:00 200 mg PREOP JAQUELIN Administration Gabapentin 900 mg 12/30/23 06:00 12/30/23 10:03 Gabapentin 900 Mg Dose PO 12/30/23 18:00 Not Given PREOP JAQUELIN Lactated Ringer's 1,000 mls @ 15 mls/hr 12/30/23 06:00 12/30/23 10:02 Lr IV 12/31/23 05:59 15 mls/hr .Q24H JAQUELIN Administration Lactated Ringer's 1,000 mls @ 60 mls/hr 12/30/23 06:00 12/30/23 10:01 Lr IV 12/30/23 22:39 Not Given .[id number] [facility] Past Medical History Medical History (Updated 12/30/23 @ 10:03 by Ant Frank DO) Degenerative disc disease, lumbar Depression USP current use of methadone for pain control Emphysema lung ADHD (attention deficit hyperactivity disorder) Neurogenic claudication denies recent change or worsening Chronic pain GERD (gastroesophageal reflux disease) controlled, stable per pt Asthma Well controlled per pt; last rescue inhaler use several months ago Chronic fatigue syndrome Stable Fibromyalgia Stable Osteoarthritis Anxiety Migraine Hx, no recent issues Patient denies h/o stroke, seizures, heart attack, heart failure, DM, HTN, blood clots/DVTs or blood transfusions. Exercise / Class Metabolic Activity III < 4 Walking/Shop/Light housework (denies chest discomfort or shortness of breath with usual activities) Past Family History Family History Other No family history of adverse response to anesthesia Past Surgical History Surgical History History of spinal fusion L1-L2 decompression, T12-L3 fusion, L2-S1 hardware removal (12/28/19): Grade view 1, ETT 7.0 at [facility] History of hysterectomy History of total knee replacement right and revision Fusion of spine Lumbar x4 History of colonoscopy History of open reduction and internal fixation (ORIF) procedure HIGH TIBIAL OSTEOTOMY-RIGHT Fusion of spine Cervical H/O arthroscopy of shoulder Right History of carpal tunnel release R/L History of bowel resection D/t constipation History of discectomy History of laminectomy X 2 History of arthroscopy Right knee x15 History of tonsillectomy History of myringotomy History of adenoidectomy History of section X 2 History of foot surgery Left bunion History of herniorrhaphy X 3 Nausea and vomiting after administration of anesthetic agent denies needing scop patch Past Anesthesia History No Hx of Anesthesia Complications and No Family Hx of Anesthesia Complications History of PONV History of PONV (denies needing scop patch) and Hx of Motion Sickness Social History Smoking Status: Current every day smoker tobacco type: cigarettes Smoking cigarettes per day: 5 cigs/day (tobacco use x 30 years)- advised Do You Dip or Chew Tobacco: No Hx Alcohol Use: No Hx Substance Use: No Review of Systems Snoring, denies witnessed apneas. Patient denies chest pain, shortness of breath, dyspnea on exertion, fever, chills, cough, wheezing, or palpitations. Physical Exam Vital Signs Last Vital Signs Temp 36.9 C 12/30/23 09:32 Pulse 71 12/30/23 09:32 Resp 18 12/30/23 09:32 BP 141/95 H 12/30/23 09:32 Pulse Ox 98 12/30/23 09:32 O2 Del Method Room Air 12/30/23 09:32 Vitals BP 121/83 P 65 TEMP 98.2 SP02 98% on RA RESP 18 Physical Patient resting comfortably in chair in no acute distress, alert and oriented, responding appropriately throughout visit Full cervical extension range of motion without pain TMD 3.5 finger breadths Mallampati Score 2 Dentition: one cap, denies chipped or loose teeth, crowns, implants or bridges Lungs: normal respiratory effort. Good air movement, clear throughout to auscultation, no adventitious breath sounds, clubbing of fingers Cardiac: regular rate and rhythm, no murmurs noted Carotid arteries: negative bruit bilat Lab Results Anesthesia Preop Results Results Anesthesia Widget: WBC 8.49 K/ul (4.8-10.8) 12/23/23 Hgb 12.8 g/dl (12.0-16.0) 12/23/23 Hct 40.1 % (37.0-47.0) 12/23/23 Plt 256 K/uL (130-400) 12/23/23 Na 140 mmol/L (136-145) 12/23/23 K 4.9 mmol/L (3.5-5.1) 12/23/23 Cl 104 mmol/L (98-107) 12/23/23 CO2 30 mmol/L (21-32) 12/23/23 BUN 17 mg/dl (6-23) 12/23/23 Creat 0.87 mg/dl (0.6-1.2) 12/23/23 Glucose Level 81 mg/dl (70-99(Fasting)) 12/23/23 PT 10.3 Seconds (9.0-12.0) 12/23/23 PTT 28 Seconds (21-31) 12/23/23 INR 0.9 (0.9-1.1) 12/23/23 Urine Color Yellow 12/23/23 Urine Appearance Clear (Clear) 12/23/23 Urine pH 5.0 (4.5-7.5) 12/23/23 Urine Specific [place] 1.022 (1.000-1.030) 12/23/23 Urine Protein Negative (Negative) 12/23/23 Urine Glucose (UA) Negative (Negative) 12/23/23 Urine Ketones Negative (Negative) 12/23/23 Urine Blood Negative (Negative) 12/23/23 Urine Nitrite Negative (Negative) 12/23/23 Urine Bilirubin Negative (Negative) 12/23/23 Urine Urobilinogen Negative (Negative) 12/23/23 Urine Leukocyte Esterase Negative (Negative) 12/23/23 Blood Type O Negative 12/23/23 Antibody Screen NEGATIVE 12/23/23 Testing Electrocardiogram Date: 12/23/23 NSR, rate 61 bpm Chest X-Ray Date: 12/23/23 No acute process of the chest.
--- OUTSIDE RECORDS SUMMARY | 2023-12-30 10:00 | External Medical Summary | Summary of Care ---
Author Name Unknown Organization [facility] Address [address] [place] [address] Phone [phone] Care Team Providers Care Clinical Auditor Name Role Phone Marvin Lemus MD Primary Care Provider [phone] Reason for Visit * Reason Onset Date Comments Medication Question 12/22/2023 Encounter Details Date Type Department Care Team ([facility] st Contact Info) Description 12/22/2023 Telephone Pharmacy, [place] [address] [place] [address] [facility] [address] [place] [address] Medication Question Allergies No known active allergiesdocumented as of this encounter (statuses as of 12/23/2023) Medications Medication Sig Dispensed Refills Start Date End Date Status MULTI-VITAMIN PO TABS Take by mouth. On hold for surgery 100 3 08/06/2008 Active nicotine (NICODERM CQ) 14 MG/24HR Patch Place 1 Patch topically on the skin daily. 28 Patch 06/06/2019 Active Additional Information Patient not taking.Reported on 12/21/2023 Escitalopram Oxalate 20 MG Oral Tablet (Lexapro) TAKE 1 TABLET BY MOUTH EVERY DAY DIRECTED 07/18/2021 Active Fluticasone Propionate 50 MCG/ACT Nasal Suspension (Flonase)Indications :Allergic rhinitis SPRAY 2 SPRAYS INTO EACH NOSTRIL EVERY DAY 48 mL 3 09/08/2021 Active Nicotine 21 MG/24HR Transdermal Patch 24 Hour (Nicoderm CQ)Indications:Cigar ette smoker Place topically on the skin 1 Patch in the morning. On upper body/upper arm, change once a day for 6 weeks.. 42 Patch 1 11/02/2021 Active Estroven Mood & Memory Oral Tablet Take 1 Tablet by mouth in the morning. Active Vitamin D3 25 MCG (1000 UT) Oral Tablet (Vitamin D3) TAKE 1 TABLET BY MOUTH EVERY DAY IN THE MORNING 90 Tablet 3 04/22/2023 Active Esomeprazole Magnesium 20 MG Oral Capsule Delayed Release TAKE BY MOUTH 1 CAPSULE DAILY BEFORE BREAKFAST . WHILE ON DICLOFENAC 90 Capsule 1 08/04/2023 Active Aspirin 81 MG Oral Tablet Delayed Release Take 1 Tablet by mouth in the morning. 02/22/2023 Active Albuterol Sulfate HFA 108 (90 Base) MCG/ACT Inhalation Aerosol SolutionIndications: Acute bronchospasm Inhale 2 Puffs by mouth every 4 hours as needed for Shortness of Breath. 54 g 3 11/15/2023 Active Ondansetron 4 MG Oral Tablet DisintegratingIndica tions:Acute cystitis without hematuria Place 1 Tablet on tongue every 8 hours as needed for Nausea or Vomiting. dissolve on tongue. 12 Tablet 11/15/2023 Active Additional Information Patient not taking.Reported on 12/21/2023 Pregabalin 50 MG Oral Capsule (Lyrica)Indications: Fibromyalgia TAKE 1 CAPSULE BY MOUTH IN THE AFTERNOON. CONTINUE 150 MG DOSE MORNING AND BEDTIME 30 Capsule 1 11/16/2023 Active Methylphenidate HCl ER (OSM) 54 MG Oral Tablet Extended Release Take 1 Tablet by mouth in the morning. Active Estroven Nighttime Oral Tablet Take 1 Tablet by mouth at bedtime. Active Acetaminophen ER 650 MG Oral Tablet Extended Release (Tylenol 8 Hour Arthritis Pain) Take 1 Tablet by mouth in the morning and 1 Tablet before bedtime. Active tiZANidine HCl 4 MG Oral Tablet (Zanaflex)Indication s:Failed neck syndrome,Cervical radiculopathy,Cervic al spondylosis,Cervical myofascial pain syndrome TAKE 1 TABLET BY MOUTH EVERY 6 HOURS NEEDED FOR MUSCLE SPASMS. 60 Tablet 11/29/2023 Active Methadone HCl 5 MG Oral TabletIndications:ME DICATION USE AGREEMENT,Displaceme nt of lumbar intervertebral disc without myelopathy Take 1.5 Tablets by mouth every morning AND 1 Tablet daily at noon AND 1.5 Tablets every evening. For pain. 120 Tablet 12/08/2023 Active Fluticasone Propionate HFA 110 MCG/ACT Inhalation Aerosol (Flovent HFA)Indications:Bron chospasm with bronchitis, acute INHALE 1 PUFF BY MOUTH IN THE MORNING AND 1 PUFF BEFORE BEDTIME. RINSE MOUTH AFTER USE. 36 g 1 12/13/2023 Active Diclofenac Sodium 1 % External Gel (Voltaren) APPLY 2G TO EACH FOOT DAILY 100 g 3 12/16/2023 Active Pregabalin 150 MG Oral Capsule (Lyrica)Indications: Fibromyalgia Take 1 Capsule by mouth in the morning and 1 Capsule before bedtime. 60 Capsule 1 12/16/2023 Active documented as of this encounter (statuses as of 12/23/2023) Active Problems Problem Noted Date Diagnosed Date Migraine variant 11/15/2023 Dyspnea 04/26/2021 Overview: 04/02/21 Some episodes feeling like needs air (lasts for several minutes ) 2/week . Started about 1 mth after surgery . No particular activity triggers it No fever chills or nightsweats has asthma, but also anxiety Cervical myelopathy 04/02/2021 Uncomplicated asthma 04/02/2021 Screen for colon cancer 12/08/2020 Overview: Postponed due to neck surgery Sched 12/23/20 Allergic rhinitis, seasonal 08/24/2020 Overview: On Flonase loratadine Status post lumbar spinal fusion 04/14/2020 Overview: 04/02/[address] Frank on Mar 10 (re fu neck surgery of 12/2020) and will have 8weeks follow up Lower back will be addressed at that appointment 12/28/[address] Han S/P cervical spinal fusion 04/14/2020 Overview: 04/02/21 Surg done 12/26/20 Arthrodesis Anterior Cervical Spine right after had still had some numbness in both hands (none in the feet ) (also has had urinary incontinence) seen last by Dr Frank on Mar 10 and will have 8weeks follow up Lower back will be addressed at that appointment 2016 Hx of arthrodesis 04/14/2020 Overview: 04/02/[address] Howard for L foot Will have follow up 04/2019 L foot seen 02/2020 Xray , CT. Has f/u in May [address] Howard Contracture of left Achilles tendon 02/19/2020 Gastroesophageal reflux disease without esophagi tis 02/19/2020 Encounter for long-term methadone use for pain c ontrol 12/14/2019 Chronic pain of left knee 08/15/2019 TERRIE (generalized anxiety disorder) 01/19/2018 Overview: 01/19/[address] Avila psych Attention deficit hyperactiv ity disorder (ADHD), predominantly inattentive type 01/19/2018 Overview: 01/19/[address] Avila psych Osteoarthritis of left foot 01/19/2018 Overview: 01/19/2018 ref to ortho by pod Status post laparoscopic cholecystectomy 018 Menopause 07/11/2016 Advance directive discussed with patient 016 Overview: 01/19/2018 never did Will give 5 wishes brochure pt confirms Discussed advance directive and living will 1 POA tima Cabezas Yoanna [phone] POA christina Rios [phone] 06/27/2017 confirms Encouraged to complete and bring for scan 07/08/2016 confirms .Encouraged to complete 06/03/2015 Discussed advance directive and living will 1 POA tima Cabezas Yoanna [phone] POA christina Rios [phone] Given brochure Chronic frontal sinusitis 06/03/2015 Overview: 06/27/2017 no sign symptoms but expects worsening in the spring07/08/2016 some more symptoms Degeneration of intervertebral disc of lumbar re gion 01/29/2014 MEDICATION USE AGREEMENT 01/28/2014 Overview: Updated 08/03/21 with Marvin Lemus MD PCP. Methadone senior living current use of non -steroidal anti-inflammatories (NSAID) 02/25/2012 Insomnia 02/24/2012 Overview: ICD-10 update of inactive term Asthma, moderate persistent 11/08/2011 Overview: 04/02/21 on Flovent and albuterol 03/30/2019 Flow loops appear normal. Spirometry is normal. There is no significant bronchodilator response. 03/26/19 In Check dial performed to assess inhaler technique: Name of inhalers Albuterol and Flovent Pass: Yes at 45L/min. Encouraged to take nice deep breaths, Use aero chamber, and rinse after steroid. Test performed by Monico BREAKER MACHINE OPERATOR CPFT 01/19/2018 acceptable on Flovent and Albuterol 3/wk 11/08/2011 symptoms for <1 yr TOB + will obtain PFT Atypical Pigmented Lesions needing removal x4 Overview: A=L infra-mammary area lateral 0.5cm B=L infra-mammary area medial 0.5cm C=R lower back near waistline 0.6cm D=L upper back just above scapula and approx 9cm from midline Cigarette smoker 06/05/2010 Overview: 04/02/21 smokes 1ppd just restarted patches 12/08/2020 1/2ppd 11/27/2019 back to 1ppd 10/2011 Spirometry normal Need for prophylactic hormon e replacement therapy (postmenopausal) 04/28/2010 Moderate episode of recurrent major depressive d isorder 10/29/2009 Overview: 04/02/21 Back in Nov Wellbutrin was increased to 150mg; d/c'd trintellix (d/t persistent n/v) . Sees Marli at [facility] Wellbutrin is reduced to 100 also on escitalopram 10 (restarted 2 mths ago ) 06/03/2015 continues follow up with Dr Avila q 1 mth 05/13/2014 no sxs fu with Dr Avila Displacement of lumbar inter vertebral disc without myelopathy 10/17/2009 Overview: 01/19/2018 some L lower back but tolerable S/p lumbar surgery x 2 - scheduled for lumbar fusion 05/20/2011 ([facility] [place]) Tx w/ methadone Fibromyalgia 06/20/2009 Overview: 01/19/2018 Cont Fibromyalgia - Cymbalta, Lyrica, methadone Chronic fatigue syndrome 06/20/2009 Nontoxic uninodular goiter 05/02/2009 Overview: TSH Results: Lab Results Component Value Date/Time TSH - [facility] 1.42 08/15/2020 02:04 PM TSH - [facility] 2.15 05/24/2018 10:11 AM TSH - [facility] 0.82 07/08/2016 12:57 PM TSH - [facility] 1.84 10/18/2013 07:55 AM 01/19/2018 No growth . Euthyroid - stable nodule right thyroid -last 2009 Cervical spondylosis 12/17/2008 Overview: 11/08/2011 no sign exacerbations since , remains on Baclofen Severe cervical spondylosis. Cervical disc displacement C5-6 s/p CARI per Dr. Mitchell spring 2007 documented as of this encounter (statuses as of 12/23/2023) Resolved Problems Problem Noted Date Diagnosed Date Resolved Date Depression 02/19/2020 03/18/2020 Overview: More specific code on the PL Tobacco abuse 02/19/2020 04/26/2021 Overview: 04/02/21 Still smokes 1ppd just restarted patches Displacement of internal rig ht knee prosthesis 06/04/2019 06/05/2019 Overweight (BMI 25.0-29.9) 05/12/2013 0 04/26/2021 Overview: BMI Readings from Last 6 Encounters: 04/02/21 23.21 kg/m 12/19/20 26.48 kg/m 12/08/20 26.81 kg/m 09/02/20 28.32 kg/m 08/20/20 27.88 kg/m 08/19/20 27.87 kg/m Umbilical hernia 03/08/2012 04/18/2012 Overview: Repaired p 3 surg History of fibromyalgia 11/08/201107/2017 Dysphagia 10/07/2009 01/19/2018 Overview: 01/19/2018 no symptoms EGD per Dr. London 09/23/2009, negative, no stricture. ICD-10 update of inactive term Slow transit constipation 08/24/2009 Overview: 01/19/2018 Daily now soft never hard S/p subtotal colectomy w/ ileosigmoid anastomosis 06/29/2010 (for recurrent habitual constipation) . Discussed pt reports the path was ok (other than muscles were "" So will consider screening sigmoidoscopy in Knee joint replacement status 12/17/2008 07/19/2018 Overview: 2007: R ARACELI, Dr. Serafin Romo documented as of this encounter (statuses as of 12/23/2023) Immunizations Name Administration Dates Next Due COVID-19 mRNA, LNP-s, No Pre serve, 2-Dose Series ([employer]) 10/21/2020,09/23/2020 COVID-19, MRNA-LNP, 23-24, P F, 30 MCG/0.3 mL, 12 YRS AND ABOVE, IM (PFIZER-Comirnaty) 01/27/2023 DTaP Dipth/Tet/Acell Pertussis (Infanrix), Peds 05/21/1974,01/15/1971,1970,07/24 HEPATITIS B VACCINE, RECOMB, 20 MCG/ML, ADULT (HEPLISAV-B) 09/09/2022,08/09/2022 Measles Vaccine 1971 OPV - Polio Virus Vaccine (Oral) 975,01/15/1971,1970,07/24 Pneumococcal Conjugate Vacci ne, 20-valent ([id number]) 11/02/2021 Pneumococcal Polysaccharide PPV23 (Pneumovax) 08/25/2009 Rubella Vaccine 04/23/1974 Seasonal Influenza Virus Vac cine, Unspecified Formulation 05/13/2022,02/14/2020 Seasonal Influenza, PF, 6 M & above, IM , (FluLaval or Fluzone) 12/19/2020,01/26/2019,01/19/2018,02/25 Seasonal Influenza, Quadriva lent, No Preserve, IM 01/27/2023,12/31/2015,06/03/2015 Seasonal Influenza, Trivalen t, (IIV3), with Preserv, (Fluzone) 02/05/2014,02/24/2012,03/23/2011,04/28 TD, Preservative Free 09/12/2007 TDAP (age 10 and older)(Boostrix) 11/24/2019 TDAP, Age 7 and older, IM (Adacel) 01/21/2010 Zoster Vaccine Recombinant (Shingrix) 05/13/2022 ,11/02/2021 documented as of this encounter Social History Tobacco Use Types Packs/Day Years Used Date Smoking Tobacco: Every Day Cigarettes 1.5 30 Smokeless Tobacco: Never Comments:PT IS TRYING TO DARWIN T PRESENTLY AT 4 CIGS DAILY Smokes 3/4 ppd. Declines health coaching at this time. Alcohol Use Standard Drinks/Week Comments No 0 (1 standard drink = 0.6 oz pur e alcohol) PHQ-2 Answer Date Recorded PHQ Adult Total Score 7 09/16/2022 Hunger Vital Sign Answer Date Recorded Within the past 12 months, y ou worried that your food would run out before you got the money to buy more. Never true 11/17/19 24 Within the past 12 months, t he food you bought just didn't last and you didn't have money to get more. Never true 11/17/2023 Childcare Answer Date Recorded Do you feel overwhelmed with taking care of a child, family member or friend? No 11/17/2023 Does your family need help f inding childcare? (Household - for ages 0-17 years) Not on file 11/17/2023 Clothing Answer Date Recorded Have you been unable to get clothing when it was really needed? No 11/17/2023 Is your family able to get c lothes or diapers when needed? (Household - for ages 0-17 years) Not on file 11/17/2023 Personal Safety Answer Date Recorded Do you feel unsafe or have concerns for your saf ety? No 11/17/2023 Do you have concerns for you r family's safety? (Household - for ages 0-17 years) Not on file 11/17/2023 Utilities Answer Date Recorded Do you have trouble paying y our heating, water, or electric bill? No 11/17/2023 Is your family able to pay t he heat, water, or electric bill? (Household - for ages 0-17 years) Not on file 11/17/2023 Does your family have access to good internet? (Household - for ages 0-17 years) Not on file 11/17/2023 Employment Status Answer Date Recorded Are you unemployed or without regular income? No 11/17/2023 Does the household have a [facility] source of income? (Household - for ages 0-17 years) Not on file 11/17/2023 Social Connections Answer Date Recorded How often do you feel lonely or isolated from th ose around you? Never 11/17/2023 Financial Resource Strain Answer Date R ecorded Do you have any trouble payi ng for your medications, or do you think you might in the future? No 11/17/2023 Does your family have troubl e paying for medicine? (Household - for ages 0-17 years) Not on file 11/17/2023 Transportation Needs Answer Date Record ed READ ONLY Do you have troubl e getting a ride to medical visits or work? Never True 11/17/2023 Does your family have a hard time getting a ride to doctors visits? (Household - for ages 0-17 years) Not on file 11/17/2023 Has lack of transportation k ept you from medical appointments, meetings, work, or from getting things needed for daily living? Check all that apply. No 11/17/2023 Do you (or your family) have trouble finding or paying for a ride (transportation)? (Household - for ages 0-17 years) Not on file 11/17/2023 Housing Stability Answer Date Recorded Do you currently live in a s helter or have no steady place to sleep at night? No 11/17/2023 READ ONLY Do you think you a re at risk of becoming homeless? No 11/17/2023 Does your family worry about paying for your home or becoming homeless? (Household - for ages 0-17 years) Not on file 0 11/17/2023 Are you homeless or worried that you might be in the future? No 11/17/2023 Are you (or your family) elen eless or worried that you might be in the future? (Household - for ages 0-17 years) Not on file Food Insecurity Answer Date Recorded Do you need food for this week? No 11/17/2023 Are you able to get enough f ood for your family? (Household - for ages 0-17 years) Not on file 11/17/2023 Does your family need food t his week? (Household - for ages 0-17 years) Not on file 11/17/2023 Do you always have enough fo od for your family? (Household - for ages 0-17 years) Not on file 11/17/2023 Sex and Gender Information Value Date Recorded Sex Assigned at Female 09/25/2018 10:35 AM EDT Gender Identity Female 09/25/2018 10:35 AM EDT Sexual Orientation Straight 09/25/2018 10 :35 AM EDT Job Start Date Occupation Industry Not on file Not on file Not on file documented as of this encounter Functional Status Functional Status Response Date of Assess ment Are you deaf or do you have serious difficulty h earing? No 06/04/2019 Are you blind or do you have serious difficulty seeing, even when wearing glasses? No 06/04/2019 Do you have serious difficul ty walking or climbing stairs? (5 years old or older) No 06/04/2019 Do you have difficulty dress ing or bathing? (5 years old or older) No 06/04/2019 Because of a physical, menta l, or emotional condition, do you have difficulty doing errands alone such as visiting a doctor s office or shopping? (15 years old or older) No 06/04/19 20 Cognitive Status Response Date of Assessm ent Because of a physical, menta l, or emotional condition, do you have serious difficulty concentrating, remembering, or making decisions? (5 years old or older) No 06/04/2019 documented as of this encounter Miscellaneous Notes * Telephone Encounter - Kirstin Solis, [facility] - 12/22/2023 10:[address] Allan MT had a follow up visit today with patient due to planned Methadone wean for Patient reports is scheduled for revision of her back with Dr Frank next week 12/30/23. Patient wasunable to provide full details, but states that she believes with be a full revision of her currenthardware. Her CT scan 12/14/23 in chart states "1. Postsurgical changes without evidence of hardwarecomplication or failure. There has likely been interval worsening of the Modic type degenerative changes at the L1-L2 level. 2. Multilevel degenerative disc disease results in mild bilateral neuroforaminal stenosis at the L5-S1 level, though would be better appreciated on MRI of the lumbar spine." So is unclear what the surgical plan entails. Asked patient to request Dr Frank's office send noteof plan to you. Methadone wean will be on hold due to this development Patient was educated on VICKIE and importance of pre-surgical pain with PCP for who will be writing post-op opioids for acute pain. Patient would like to also discuss refills of Tizanidine with you for post op use Defer to your team for acute post op care Thank you, Kirstin Solis [facility] Clinical Pharmacist [facility] documented in this encounter Plan of Treatment Upcoming Encounters Date Type Department Care Team (Late st Contact Info) Description 12/26/2023 9:00 AM EDT [facility] [address] [phone] Werner Munoz MD [address] [facility] [place] [id number] 01/20/2024 3:00 PM EDT Telemedicine [facility] [address] [facility] [address] Gautam Larry CRNP [address] [facility] [id number] 02/11/2024 9:20 AM EDT Office Visit [facility], [place] [address] [facility] [place] [phone] Marvin Lemus MD [address] [facility] [address] [place] [phone] 03/22/2024 10:30 AM EST Telemedicine Pharmacy, [place] [address] [place] [id number] [facility] [address] [facility] [place] [id number] Health Maintenance Due Date Last Done Comments Colonoscopy 2015 Fecal Occult Blood Test 2015 Sigmoidoscopy 2015 Mammogram 12/16/2023 12/15/2022, 11/18, 08/31/2021, Additional history exists Influenza Vaccine (FLU shot) (#1) 2023 01/27/2023, 05/13/2022, 12/19/2020, Additional history exists DISCUSS TOBACCO CESSATION (REFER TO SMARTSET #3291) 02/15/2024 02/14/2023 (Discussed) Cologuard 09/04/2024 09/04/2021, 08/16, 08/31/2021 Colorectal Cancer Screening 09/04/2024 Depression Monitoring 11/16/2024 11/17/2023 Lipid Panel 08/15/2025 08/15/2020, 02/0 09/2018, 05/13/2014 Diabetes Screening 01/13/2026 01/13/2023, 0 11/16/2022, 10/28/2021, Additional history exists DTap/Tdap Vaccines (7 - Td or Tdap) 11/23/2029 11/24/2019, 01/21/2010, 09/12/2007, Additional history exists Pneumococcal Vaccine: Pediatrics (0 to 5 Years) and At-Risk Patients (6 to 64 Years) Completed 11/02/2021, 08/25/2009 Zoster Vaccines Completed 05/13/2022, 11/02/2021 Hepatitis B Vaccine Completed 09/09/2022, 04/24/202 3 Lung Cancer Screening Completed 12/15/2022, 022 COVID-19 Vaccine Completed 01/27/2023, 09/2020, 09/23/2020 HPV (Gardasil) Vaccine Aged Out No lo nger eligible based on patient's age to complete this topic MENINGOCOCCAL (MENACTRA/MENVEO) Aged Out No longer eligible based on patient's age to complete this topic documented as of this encounter Medical Devices Not on filedocumented as of this encounter Advance Directives * Full Code (Latest Code Status on File) Date Activated Date Inactivated Comments 06/04/2019 10:32 PM 06/05/2019 5:12 PM This order reflects the patients wishes and were consensually agreed upon. Care Teams Clinical Auditor Relationship Specialty Start Date End Date Marvin Lemus MD [address] [place] [id number] PCP - General Family Medicine 08/03/21 documented as of this encounter
--- OUTSIDE RECORDS SUMMARY | 2023-12-30 10:00 | External Medical Summary | Summary of Care ---
Author Name Unknown Organization [facility] Address [address] [place] [address] Phone [phone] Care Team Providers Care Housing Management Officer Name Role Phone Marvin Lemus MD Primary Care Provider [phone] Reason for Visit * Reason Onset Date Comments Advice 12/26/2023 Encounter Details Date Type Department Care Team ([facility] st Contact Info) Description 12/26/2023 Telephone [facility] [address] [place] [address] Werner Munoz MD [address] [place], [place] [id number] Advice Allergies No known active allergiesdocumented as of this encounter (statuses as of 12/27/2023) Medications Medication Sig Dispensed Refills Start Date [...] before bedtime. 60 Capsule 1 12/16/2023 Active buPROPion HCl ER (SR) 150 MG Oral Tablet Extended Release 12 Hour (Wellbutrin SR) TAKE 1 TABLET BY MOUTH ONCE A DAY DIRECTED TAKE AT NOON 12/01/2023 Active documented as of this encounter (statuses as of 12/27/2023) Active Problems Problem Noted Date Diagnosed Date Mild intermittent asthma without complication Migraine variant 11/15/2023 Dyspnea 04/26/2021 Overview: 04/02/21 Some episodes feeling like needs air (lasts for several minutes ) 2/week . Started about 1 mth after surgery . No particular activity triggers it No fever chills or nightsweats has asthma, but also anxiety Cervical myelopathy 04/02/2021 Screen for colon cancer 12/08/2020 Overview: Postponed due to neck surgery Sched 12/23/20 Allergic rhinitis, seasonal 08/24/2020 Overview: On Flonase loratadine Status post lumbar spinal fusion 04/14/2020 Overview: 04/02/[address] Frank on Mar 10 (re fu neck surgery of 12/2020) and will have 8weeks follow up Lower back will be addressed at that appointment 12/28/[address] Han >>OVERVIEW FOR S/P CERVICAL SPINAL FUSION WRITTEN ON 12/26/2023 5:14 AM BY GLORIA DURHAM, KIRA 04/02/21 Surg done 12/26/20 Arthrodesis Anterior Cervical Spine right after had still had some numbness in both hands (none in the feet ) (also has had urinary incontinence) seen last by Dr Frank on Mar 10 and will have 8weeks follow up Lower back will be addressed at that appointment 2015 >>OVERVIEW FOR HX OF ARTHRODESIS WRITTEN ON 04/26/2021 5:23 PM BY DANTE MOREIRA MD 04/02/[address] Howard for L [...] Discussed advance directive and living will 1 POChuy Cabezas Yoanna [phone] 2 POA christina Rios [phone] 06/27/2017 confirms Encouraged to complete and bring for scan 07/08/2016 confirms .Encouraged to complete 06/03/2015 Discussed advance directive and living will 1 TANMAY Lenz [phone] POA christina Rios [phone] Given brochure Chronic frontal sinusitis 06/03/2015 Overview: 06/27/2017 no sign symptoms but expects worsening in the spring07/08/2016 some more symptoms Degeneration of intervertebral disc of lumbar re gion 01/29/2014 MEDICATION USE AGREEMENT 01/28/2014 Overview: Updated 08/03/21 with Marvin Lemus MD PCP. 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 Test performed by Monico REFERRAL NURSE CPFT 01/19/2018 acceptable on Flovent and Albuterol [...] (d/t persistent n/v) . Sees Marli at [facility] Now Wellbutrin is reduced to 100 also on escitalopram 10 (restarted 2 mths ago ) 06/03/2015 continues follow up with Dr Avila q 1 mth 05/13/2014 no sxs fu with Dr Avila Displacement of lumbar inter vertebral disc without myelopathy 10/17/2009 Overview: 01/19/2018 some L lower back but tolerable S/p lumbar surgery x 2 - scheduled for lumbar fusion 05/20/2011 ([facility]) Tx w/ methadone Fibromyalgia 06/20/2009 Overview: 01/19/2018 [...] Euthyroid - stable nodule right thyroid -last US 2009 Cervical spondylosis 12/17/2008 Overview: 11/08/2011 no sign exacerbations since , remains on Baclofen Severe cervical spondylosis. Cervical disc displacement C5-6 s/p CARI per Dr. Mitchell spring 2007 documented as of this encounter (statuses as of 12/27/2023) Resolved Problems Problem Noted Date Diagnosed Date Resolved Date Uncomplicated asthma 04/02/2021 024 Overview: More specified on pl Depression 02/19/2020 03/18/2020 Overview: More specific code [...] joint replacement status 12/17/2008 07/19/2018 Overview: 2007: Mario CHARLES, Dr. Serafin Romo documented as of this encounter (statuses as of 12/27/2023) Immunizations Name Administration Dates Next Due COVID-19 mRNA, LNP-s, No Pre serve, 2-Dose Series ([employer]) 10/21/2020,09/23/2020 COVID-19, MRNA-LNP, 23-24, P F, 30 MCG/0.3 mL, 12 YRS AND ABOVE, IM (PFIZER-Comirnaty) 01/27/2023 DTaP Dipth/Tet/Acell Pertussis (Infanrix), Peds 05/21/1974,01/15/1971,1970,07/24 HEPATITIS B VACCINE, RECOMB, 20 MCG/ML, ADULT (HEPLISAV-B) 09/09/2022,08/09/2022 Measles Vaccine 1971 OPV - Polio Virus Vaccine (Oral) 975,01/15/1971,1970,07/24 Pneumococcal Conjugate Vacci ne, 20-valent ([id number]) 11/02/2021 Pneumococcal Polysaccharide PPV23 (Pneumovax) 08/25/2009 Rubella Vaccine 04/23/1974 Seasonal Influenza Virus Vac cine, Unspecified Formulation 05/13/2022,02/14/2020 Seasonal Influenza, PF, 6 M & above, IM , (FluLaval or Fluzone) 12/19/2020,01/26/2019,01/19/2018,02/25 Seasonal Influenza, Quadriva lent, No Preserve, IM 01/27/2023,12/31/2015,06/03/2015 Seasonal Influenza, Trivalen t, (IIV3), PF, (Fluzone) 12/26/2023 Seasonal Influenza, Trivalen t, (IIV3), with Preserv, [...] No 11/17/2023 Does the household have a surgeons choice medical centerr source of income? (Household - for ages [...] encounter Miscellaneous Notes * Telephone Encounter - Amberly Wilcox OSA - 12/27/2023 1:35 PM EDT Requested information faxed on 12/27/23 * Telephone Encounter - Travis Be OSA - 12/26/2023 2:[address] Frank office called to ask if Pre OP visit summary notes and any information that will need for patient surgery on Tuesday can be sent to clinic P: [phone] Please Advise documented in this encounter Plan of Treatment Upcoming Encounters Date Type Department Care Team (Late st Contact Info) Description 01/20/2024 3:00 PM EDT Telemedicine [facility] [address] [facility] [place] [address] Gautam Larry CRNP [address] [facility] [address] 02/11/2024 9:20 AM EDT Office Visit [facility] [address] [place] [phone] Marvin Lemus MD [address] [place] [address] 03/22/2024 10:30 AM EST Telemedicine Pharmacy, [place] [address] [place] [address] [facility] [address] [place] [address] Health Maintenance Due Date Last Done Comments Colonoscopy 2015 Fecal Occult Blood Test 2015 Sigmoidoscopy 2015 Mammogram 12/16/2023 12/15/2022, 11/18, 08/31/2021, Additional history exists COVID-19 Vaccine ( season) 2023 01/27/2023, 10/21/2020, 09/23/2020 DISCUSS TOBACCO CESSATION (REFER TO SMARTSET #3297) 02/15/2024 02/14/2023 (Discussed) Cologuard 09/04/2024 09/04/2021, 08/16, [...] 05/13/2022, 11/02/2021 Hepatitis B Vaccine Completed 09/09/2022, Lung Cancer Screening Completed 12/15/2022, 022 Influenza Vaccine (FLU shot) Completed 12/2023, 01/27/2023, 05/13/2022, Additional history exists HPV (Gardasil) Vaccine Aged Out No lo [...] and were consensually agreed upon. Care Teams Housing Management Officer Relationship Specialty Start Date End Date Marvin Lemus MD [address] [place] [phone] PCP - General Family Medicine 08/03/21 documented as of this encounter
--- OUTSIDE RECORDS SUMMARY | 2023-12-30 10:00 | External Medical Summary | Summary of Care ---
Author Name Unknown Organization [facility] Address [address] [place] [address] Phone [phone] Care Team Providers Care Flight Teacher Name Role Phone Marvin Lemus MD Primary Care Provider [phone] Encounter Details Date Type Department Care Team (Late st Contact Info) Description 12/22/2023 Telephone Pharmacy, [place] [address] [place] [address] [facility] [address] [place] [address] Allergies No known active allergiesdocumented as of [...] every evening. For pain. 120 Tablet 12/08/2023 4 Active Fluticasone Propionate HFA 110 MCG/ACT Inhalation [...] advance directive and living will 1 TANMAY Cabezas Yoanna [phone] POA christina Rios [phone] 06/27/2017 confirms Encouraged to complete and bring for scan 07/08/2016 confirms .Encouraged to complete 06/03/2015 Discussed advance directive and living will 1 TANMAY Cabezas Yoanna [phone] POA christina Rois [phone] Given brochure Chronic frontal sinusitis 06/03/2015 Overview: 06/27/2017 no sign symptoms but expects worsening in the spring07/08/2016 some more symptoms Degeneration of intervertebral disc of lumbar re gion 01/29/2014 MEDICATION USE AGREEMENT 01/28/2014 Overview: Updated 08/03/21 with Marvin Lemus MD PCP. Methadone retirement current use of non -steroidal anti-inflammatories (NSAID) [...] rinse after steroid. Test performed by Monico REPAIRER VENEER SHEET CPFT 01/19/2018 acceptable on Flovent and Albuterol [...] 2 - scheduled for lumbar fusion 05/20/2011 ([facility]) Tx w/ methadone Fibromyalgia 06/20/2009 Overview: 01/19/2018 [...] mRNA, LNP-s, No Pre serve, 2-Dose Series ([employer]) 10/21/2020,09/23/2020 COVID-19, MRNA-LNP, 23-24, P F, 30 MCG/0.3 mL, 12 YRS AND ABOVE, IM (PFIZER-Comirnaty) 01/27/2023 DTaP Dipth/Tet/Acell Pertussis (Infanrix), Peds 05/21/1974,01/15/1971,1970,07/24 HEPATITIS B VACCINE, RECOMB, 20 MCG/ML, ADULT (HEPLISAV-B) 09/09/2022,08/09/2022 Measles Vaccine 1971 OPV - Polio Virus Vaccine (Oral) 975,01/15/1971,1970,07/24 Pneumococcal Conjugate Vacci ne, 20-valent ([id number]) 11/02/2021 Pneumococcal Polysaccharide PPV23 (Pneumovax) 08/25/2009 Rubella [...] No 11/17/2023 Does the household have a re gular source of income? (Household - for ages [...] encounter Miscellaneous Notes * Telephone Encounter - Werner Munoz MD - 12/22/2023 6:49 PM EDT The EKG may or may not be necessary for preop clearance. I will determine that when she comes in. Otherwise she has an appt w/ Dr. Lemus next month and can have it done then since he is the one who prescribes her methadone. I didn't see a UDS pended, but that can be ordered/signed by Antonio. * Telephone Encounter - Kirstin Solis [facility] - 12/22/2023 11:[address] Munoz, Patient sees you next week for presurgical clearance. She is due for an EKG due to chronic Methadone use and due for a UDS. I have pended the UDS order and patient is aware to complete, but I cannot write the EKG but assume may be part of surgical clearance. Thank you, Kirstin Solis [facility] Clinical Pharmacist [facility] documented in this encounter Plan of Treatment Upcoming Encounters Date Type Department Care Team (Late st Contact Info) Description 12/26/2023 9:00 AM EDT Office Visit [facility] [address] [facility] [phone] [facility] [address] [facility] [phone] 01/20/2024 3:00 PM EDT Telemedicine [facility], [facility] [address] [facility] [address] Gautam Larry CRNP [address] [place] [address] 02/11/2024 9:20 AM EDT Office Visit [facility] [address] [facility] [place] [phone] Marvin Lemus MD [address] [facility] [phone] 03/22/2024 10:30 AM EST Telemedicine Pharmacy, [place] [address] [place] [address] [facility] [place] [address] Health Maintenance Due Date Last Done Comments Colonoscopy 2015 Fecal Occult Blood Test 2015 Sigmoidoscopy 2015 Mammogram 12/16/2023 12/15/2022, 11/18, 08/31/2021, Additional history exists Influenza Vaccine (FLU shot) (#1) 2023 01/27/2023, 05/13/2022, 12/19/2020, Additional history exists DISCUSS TOBACCO CESSATION (REFER TO SMARTSET #3291) 02/15/2024 02/14/2023 (Discussed) Cologuard 09/04/2024 09/04/2021, 08/16, 08/31/2021 Colorectal Cancer Screening 09/04/2024 Depression Monitoring 11/16/2024 11/17/2023 Lipid Panel 08/15/2025 08/15/2020, 02/09/2018, 05/13/2014 Diabetes Screening 01/13/2026 01/13/2023, 0 11/16/2022, 10/28/2021, Additional history exists DTap/Tdap Vaccines (7 - Td or Tdap) 11/23/2029 11/24/2019, 01/21/2010, 09/12/2007, Additional history exists Pneumococcal Vaccine: Pediatrics (0 to 5 Years) and At-Risk Patients (6 to 64 Years) Completed 11/02/2021, 08/25/2009 Zoster Vaccines Completed 05/13/2022, 11/02/2021 Hepatitis B Vaccine Completed 09/09/2022, Lung Cancer Screening Completed 12/15/2022, 022 COVID-19 [...] and were consensually agreed upon. Care Teams Flight Teacher Relationship Specialty Start Date End Date Marvin Lemus MD [address] [place] [address] PCP - General Family Medicine 08/03/21 documented as of this encounter
--- OUTSIDE RECORDS SUMMARY | 2023-12-30 10:00 | External Medical Summary | Summary of Care ---
Author Name Unknown Organization [facility] Address [address] [place] [address] Phone [phone] Care Team Providers Care Jigsawyer Name Role Phone Marvin Lemus MD Primary Care Provider [phone] Reason for Visit * Reason Onset Date Comments pre-op exam Medication Administration 12/26/2023 Flu an d/or Pneumo Inj Encounter Details Date Type Department Care Team (Late st Contact Info) Description 12/26/2023 9:00 AM EDT Office Visit [facility] [address] [place] [address] Werner Munoz MD [address] [place], [place] [id number] Preoperative clearance*; Major depressive disorder, recurrent episode, moderate (HCC); Mild intermittent asthma without complication; TERRIE (generalized anxiety disorder); Need for prophylactic vaccination and inoculation against influenza Allergies No known active allergiesdocumented as of this encounter (statuses as of 12/26/2023) Medications Medication Sig Dispensed Refills Start Date [...] as of this encounter (statuses as of 12/26/2023) Active Problems Problem Noted Date Diagnosed Date [...] WRITTEN ON 12/26/2023 5:14 AM BY GLORIA DURHAM KIRA 04/02/21 Surg done 12/26/20 Arthrodesis Anterior [...] living will 1 POA tima Cabezas Yoanna [phone] POA daughter Barbara Rios [phone] 06/27/2017 confirms Encouraged to complete and bring for scan 07/08/2016 confirms .Encouraged to complete 06/03/2015 Discussed advance directive and living will 1 POA tima Cabezas Yoanna [phone] POA daughter Barbara Rios [phone] Given brochure Chronic frontal sinusitis 06/03/2015 Overview: 06/27/2017 no sign symptoms but expects worsening in the spring07/08/2016 some more symptoms Degeneration of intervertebral disc of lumbar re gion 01/29/2014 MEDICATION USE AGREEMENT 01/28/2014 Overview: Updated 08/03/21 with Marvin Lemus MD PCP. Methadone USP current use of non -steroidal anti-inflammatories (NSAID) [...] rinse after steroid. Test performed by Monico MCGEE CPFT 01/19/2018 acceptable on Flovent and Albuterol [...] (d/t persistent n/v) . Sees Marli at [facility] Now Wellbutrin is reduced to 100 also on escitalopram 10 (restarted 2 mths ago ) 06/03/2015 continues follow up with Dr Avila q 1 mth 05/13/2014 no sxs fu with Dr Avila Displacement of lumbar inter vertebral disc without myelopathy 10/17/2009 Overview: 01/19/2018 some L lower back but tolerable S/p lumbar surgery x 2 - scheduled for lumbar fusion 05/20/2011 ([facility] [place]) Tx w/ methadone Fibromyalgia 06/20/2009 Overview: 01/19/2018 [...] as of this encounter (statuses as of 12/26/2023) Resolved Problems Problem Noted Date Diagnosed Date Resolved Date Uncomplicated asthma 04/02/2021 024 Overview: More specified on pl Depression 02/19/2020 03/18/2020 Overview: More specific code on the PL Tobacco abuse 02/19/2020 04/26/2021 Overview: 12/16/21 Still smokes 1ppd just restarted patches Displacement [...] replacement status 12/17/2008 07/19/2018 Overview: 2007: R TKA, Dr. Serafin Romo documented as of this encounter (statuses as of 12/26/2023) Immunizations Name Administration Dates Next Due COVID-19 mRNA, LNP-s, No Pre serve, 2-Dose Series ([place]) 10/21/2020,09/23/2020 COVID-19, MRNA-LNP, 23-24, P F, 30 MCG/0.3 mL, 12 YRS AND ABOVE, IM (PFIZER-Comirnaty) 01/27/2023 DTaP Dipth/Tet/Acell Pertussis (Infanrix), Peds 05/21/1974,01/15/1971,1970,07/24 HEPATITIS B VACCINE, RECOMB, 20 MCG/ML, ADULT (HEPLISAV-B) 09/09/2022,08/09/2022 Measles Vaccine 1971 OPV - Polio Virus Vaccine (Oral) 975,01/15/1971,1970,07/24 Pneumococcal Conjugate Vacci ne, 20-valent ([id number]) 11/02/2021 Pneumococcal Polysaccharide PPV23 (Pneumovax) 08/25/2009 Rubella [...] Day Cigarettes 1.5 30 Smokeless Tobacco: Never Tobacco Cessation:Ready to Q uit: Not Asked; Counseling Given: Not Answered Comments:PT IS TRYING TO QUIT PRESENTLY AT 4 CIGS DAILY Smokes 3/4 [...] No 11/17/2023 Does the household have a presbyterian hospitallar source of income? (Household - for ages [...] on file documented as of this encounter Last Filed Vital Signs Vital Sign Reading Time Taken Comments Blood Pressure 132/80 12/26/2023 9:07 AM EDT Pulse 73 12/26/2023 9:07 AM EDT Temperature 36.5 C (97.7 F) 12/26/2023 9:07 AM ED T Respiratory Rate 16 12/26/2023 9:07 AM EDT Oxygen Saturation 100% 12/26/2023 9:07 AM EDT Inhaled Oxygen Concentration - - Weight 84.6 kg (186 lb 8 oz) 12/26/2023 9:07 AM EDT Height 165.1 cm (5' 5") 12/26/2023 9:07 AM EDT Body Mass Index 31.04 12/26/2023 9:07 AM EDT documented in this encounter Functional Status Functional Status Response [...] No 06/04/2019 documented as of this encounter Progress Notes * Werner Munoz MD - 12/26/2023 9:15 AM EDT Images from the original note were not included. History of Present Illness Precious Rajan is a 53 year old female that presents for pre-op exam and Medication Administration (Flu and/or Pneumo Inj) Her PCP is Dr. Lemus. She is here at the request of Dr. Frank for preop clearance for back surgery. She is going to havehardware removed and discs fused. Her surgery is scheduled for 12/29. She had labs, CXR, and EKG done at [facility] 3 days ago. She has had 1 surgery a year for the past 5 years - neck, back, and joint replacements. Her last one was about a year ago, a total knee redo. Since then she has not had any interval change in her health. The only problem she has is vomiting after the anesthesia. She tells them and they give her extra stomach medicine. Otherwise she has never had any problems with any procedure. She has asthma which is not bad, it's off and on. It's generally during allergy season. It's not like it makes her go to the hospital or anything like that. She sees Dr. Avila for depression and anxiety, usually once a month. Things are going well in regard to that. The reason she has them is due to her chronic pain. She would be able to go up 5 flights of stairs w/o difficulty, except short of breath because she is out of shape. She would like to get the flu shot. ROS: No f/c; no n/v/d; no cp/sob; no cough/cold symptoms; no pain w/ urinations/UTI symptoms. Physical Exam Vitals: 12/26/23 0907 Temp: 36.5 C (97.7 F) Pulse: 73 Resp: 16 SpO2: 100% BP: 132/80 BMI: 31.04 Physical Exam Vitals reviewed. Constitutional: General: She is not in acute distress. Appearance: Normal appearance. She is not ill-appearing. HENT: Right Ear: Tympanic membrane, ear canal and external ear normal. Left Ear: Tympanic membrane, ear canal and external ear normal. Nose: Nose normal. Mouth/Throat: Mouth: Mucous membranes are moist. Pharynx: Oropharynx is clear. No oropharyngeal exudate or posterior oropharyngeal erythema. Eyes: Extraocular Movements: Extraocular movements intact. Conjunctiva/sclera: Conjunctivae normal. Pupils: Pupils are equal, round, and reactive to light. Cardiovascular: Rate and Rhythm: Normal rate and regular rhythm. Heart sounds: No murmur heard. No friction rub. No gallop. Pulmonary: Effort: Pulmonary effort is normal. No respiratory distress. Breath sounds: No wheezing, rhonchi or rales. Abdominal: General: Bowel sounds are normal. There is no distension. Palpations: Abdomen is soft. Tenderness: There is no abdominal tenderness. There is no guarding or rebound. Musculoskeletal: Cervical back: Neck supple. Lymphadenopathy: Cervical: No cervical adenopathy. Skin: General: Skin is warm and dry. Capillary Refill: Capillary refill takes less than 2 seconds. Neurological: Mental Status: She is alert. Deep Tendon Reflexes: Reflex Scores: Brachioradialis reflexes are 2+ on the right side and 2+ on the left side. Patellar reflexes are 2+ on the right side and 2+ on the left side. [facility] studies reviewed: EKG: NSR CXR: Negative. CBC, U/A, BMP - all within normal limits. I have reviewed the following results: Assessment and Plan Preoperative clearance She is cleared for surgery. UOC form completed and signed and will be faxed to [phone]. Major depressive disorder, recurrent episode, moderate (HCC) Doing well. Continue care w/ Dr. Avila, bupropion, lexapro. TERRIE (generalized anxiety disorder) As above. Mild intermittent asthma without complication Stable, doing well. Flovent and albuterol prn. Need for prophylactic vaccination and inoculation against influenza - INFLUENZA VAC, TRIVALENT, (IIV3), PF, 0.5 ML (FLUZONE) Wrap-Up Follow Up: Return if symptoms worsen or fail to improve and as scheduled. Time: I spent a total of 30-39 minutes (exact time 30 mins) on the date of service in preparation, delivery, and documentation of the care provided to Precious Rajan excluding any time spent in the performance of separately billed services. * Sarahi Sheriff MED ASSIST - 12/26/2023 9:04 AM EDT Chief Complaint Patient presents with pre-op exam PT states she has no concerns for today. She states she had a EKG, bloodwork, and chest x-ray at [facility] on Friday 12/22 they said they would send the results. Patient has been verbally educated on the need or importance of Breast Cancer Screening and has declined topic(s). PRE - ADMINISTRATION DOCUMENTATION Are you experiencing any cold symptoms or fever? No Have you had Guillain-[place] Syndrome (an illness that causes paralysis) within the last 6 weeks? No Have you had the flu shot in the past? YES Have you ever had a reaction to the flu shot? No HUNTER Schneider, 12/26/2023 9:10 AM Immunization Administration Documentation Time Out Procedure Performed: Yes Patient Identified (Ask Name/Date of ): Yes Does the patient have a fever greater than 101 degrees today? No Patient allergic to latex? No VFC Stock: No Immunization(s) verified: Yes, Immunization Name: Flu, VIS Sheet(s) given: Yes Verified Side and Site: Yes Verified Shot(s) with Parent(s)/Patient: Yes documented in this encounter Plan of Treatment Upcoming Encounters Date Type Department Care Team (Late st Contact Info) Description 01/20/2024 3:00 PM EDT Telemedicine [facility] [address] [facility] [address] [facility] [place] [address] Gautam Larry CRNP [address] [place] [address] 02/11/2024 9:20 AM EDT Office Visit [facility] [address] [facility] [id number] Marvin Lmeus MD [address] [facility] [address] 03/22/2024 10:30 AM [facility], [place] [address] [facility] [address] [place], [facility] [address] [facility] [address] Health Maintenance Due Date Last Done Comments Colonoscopy 2015 Fecal Occult Blood Test 2015 Sigmoidoscopy 2015 Mammogram 12/16/2023 12/15/2022, 11/18, 08/31/2021, Additional history exists COVID-19 Vaccine ( season) 2023 01/27/2023, 10/21/2020, 09/23/2020 DISCUSS TOBACCO CESSATION (REFER TO SMARTSET #3291) [...] Not on filedocumented as of this encounter Visit Diagnoses Diagnosis Preoperative clearance- Primary Preoperative examination, unspecified Major depressive disorder, recurrent episode, moderate (HCC) Major depressive disorder, recurrent episode, moderate Mild intermittent asthma without complication Unspecified asthma TERRIE (generalized anxiety disorder) Generalized anxiety disorder Need for prophylactic vaccination and inoculation against influenza documented in this encounter Advance Directives * Full Code (Latest Code Status on File) Date Activated Date Inactivated Comments 06/04/2019 10:32 PM 06/05/2019 5:12 PM This order reflects the patients wishes and were consensually agreed upon. Care Teams Jigsawyer Relationship Specialty Start Date End Date Marvin Lemus MD [address] [id number] PCP - General Family Medicine 08/03/21 documented as of this encounter
[2023-12-30] MEDS: ACETAMINOPHEN 500 MG TAB PO SCH (10:01)
[2023-12-30] MEDS: LR 60ML/HR IV SCH (10:01)
--- NOTE | 2023-12-30 10:01 | History & Physical Bridge Note ---
Date of Service December 30, 2023 History & Physical Bridge Note I have examined the patient, reviewed the History & Physical and in the interval since the performance of the History & Physical I have noted the following changes of clinical significance: no changes noted
[2023-12-30] MEDS: CeleBREX 200 MG CAP PO SCH (10:02)
[2023-12-30] MEDS: LR 15ML/HR IV SCH (10:02)
[2023-12-30] MEDS: GABAPENTIN 900 MG DOSE PO SCH (10:03)
--- NOTE | 2023-12-30 10:04 | History & Physical Report ---
Date of Service December 30, 2023 Assessment & Plan (1) Back pain: Plan: T11-L1 hardware removal, revision decompression and fusion T11-L2 History of Present Illness Chief Complaint: Back pain Primary Care Provider: Marvin Lemus MD This is a 53-year-old female known to me that presents with onset of severe back pain and evidence of fractured hardware. She is here for revision surgery. Allergies Allergy/AdvReac Type Severity Reaction Status Date / Time pollen extracts Allergy Unknown Congestion, Verified 12/30/23 09:22 rhinorrhea Home Medications Medication Instructions Recorded Confirmed Type albuterol sulfate 90 mcg/actuation 2 puff inhalation Q6H PRN Wheezing 03/26/19 12/30/23 History aerosol inhaler cholecalciferol (vitamin D3) 25 1,000 unit PO QAM 03/26/19 12/30/23 History mcg (1,000 unit) chewable tablet (Vitamin D3) diclofenac sodium 1 % topical gel 2 g topical QID PRN Pain 03/26/19 12/30/23 History (Voltaren) fluticasone propionate 50 2 spray intranasal BID PRN 03/26/19 12/30/23 History mcg/actuation nasal Congestion spray,suspension (Flonase Allergy Relief) methadone 10 mg tablet 7.5 mg PO BID 03/26/19 12/30/23 History multivitamin 1 tab PO QAM 03/26/19 12/30/23 History pregabalin 50 mg capsule (Lyrica) 150 mg PO BID 03/26/19 12/30/23 History bupropion HCl 100 mg tablet,12 hr 150 mg PO QAM 12/28/19 12/30/23 History sustained-release (Wellbutrin SR) fluticasone propionate 110 2 puff inhalation BID PRN sob 12/28/19 12/30/23 History mcg/actuation HFA aerosol inhaler (Flovent HFA) esomeprazole magnesium 20 mg 20 mg PO QAM 12/17/20 12/30/23 History capsule,delayed release (Nexium) ondansetron HCl 4 mg tablet 4 mg PO Q6H PRN Nausea 12/17/20 12/30/23 History (Zofran) escitalopram oxalate 20 mg tablet 20 mg PO HS 12/15/23 12/30/23 History (Lexapro) methadone 5 mg tablet 5 mg PO .NOON 12/15/23 12/30/23 History methylphenidate HCl 54 mg 54 mg PO QAM 12/15/23 12/30/23 History tablet,extended release 24 hr (Concerta) pregabalin 50 mg capsule (Lyrica) 50 mg PO QPM 12/15/23 12/30/23 History Past Med/Surg History Problem List (Updated 12/30/23 @ 10:03 by Ant Frank DO) Back pain Myelopathy 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 FDC current use of methadone for pain control Tobacco abuse Emphysema of lung ADHD (attention deficit hyperactivity disorder) Neurogenic claudication due to lumbar spinal stenosis Hammertoe of second toe of left foot Achilles tendon contracture, left Osteoarthritis of left midfoot Hallux valgus (acquired), left foot Encounter for pre-operative examination GERD (gastroesophageal reflux disease) Well controlled Depression Asthma Well controlled DDD (degenerative disc disease), lumbar (Acute 01/29/14) Medical History (Updated 12/30/23 @ 10:03 by Ant Frank DO) Degenerative disc disease, lumbar 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 Emphysema lung ADHD (attention deficit hyperactivity disorder) Neurogenic claudication denies recent change or worsening Chronic pain GERD (gastroesophageal reflux disease) controlled, stable per pt Asthma Well controlled per pt; last rescue inhaler use several months ago Chronic fatigue syndrome Stable Fibromyalgia Stable Osteoarthritis Anxiety Migraine Hx, no recent issues Surgical History History of spinal fusion L1-L2 decompression, T12-L3 fusion, L2-S1 hardware removal (12/28/19): Grade view 1, ETT 7.0 at [facility] History of hysterectomy History of total knee replacement right and revision Fusion of spine Lumbar x4 History of colonoscopy History of open reduction and internal fixation (ORIF) procedure HIGH TIBIAL OSTEOTOMY-RIGHT Fusion of spine Cervical H/O arthroscopy of shoulder Right History of carpal tunnel release R/L History of bowel resection D/t constipation History of discectomy History of laminectomy X 2 History of arthroscopy Right knee x15 History of tonsillectomy History of myringotomy History of adenoidectomy History of section X 2 History of foot surgery Left bunion History of herniorrhaphy X 3 Nausea and vomiting after administration of anesthetic agent denies needing scop patch Family History Other No family history of adverse response to anesthesia Social History Smoking Status: Current every day smoker Tobacco Type: Cigarettes Cigarettes Per Day: 5 cigs/day (tobacco use x 30 years)- advised; Second Hand Exposure: No; Do You Dip or Chew Tobacco: No; Tobacco Cessation Education Requested by Patient: No Hx Alcohol Use: No Hx Substance Use: No Preferred Language: French Communication Ability: Effective Intensive Care Unit Registered Nurse Required: No Beliefs That Will Affect Care: None Current Living Situation: Family and Significant Other Other Information That Helps Us Care for You: No Feels Safe at Home: Yes Safety Concerns: Feels Safe At This Time Assistive Devices: Glasses Assistive Devices Comment: prn glasses Physical Exam Physical Exam: Patient is alert and oriented Heart regular in rhythm Lungs clear Results & Data Results & Data Vital Signs (Past 12 Hours) Vital Signs Temp Pulse Resp BP Pulse Ox O2 Del Method 12/30/23 09:32 36.9 C 71 18 141/95 H 98 Room Air
[2023-12-30] MEDS ORDERED: ATROPINE SULFATE 0.1 MG/ML 10ML SYR IV PRN (10:10)
[2023-12-30] MEDS ORDERED: ONDANSETRON INJ 2 MG/ML 2 ML VIAL IV PRN ×2 (10:10→15:59)
[2023-12-30] MEDS ORDERED: ePHEDrine sulfate 50 MG/ML AMP IV PRN (10:10)
[2023-12-30] MEDS ORDERED: MIDAZOLAM HCL 1 MG/ML 2ML VIAL ONE (10:27)
[2023-12-30] MEDS ORDERED: fentaNYL citrate PF 100 MCG/2 ML VIAL ONE (10:27)
[2023-12-30] MEDS ORDERED: KETAMINE HCL 10MG/ML SYR ONE (10:28)
[2023-12-30] MEDS ORDERED: LIDOCAINE 2% 2 ML VIAL/AMP(20MG/ML) INFIL ONE (10:33)
[2023-12-30] MEDS ORDERED: GLYCOPYRROLATE 0.2 MG/ML VIAL ONE ×2 (10:33→13:17)
[2023-12-30] MEDS ORDERED: diphenhydrAMINE 50 MG/ML VIAL ONE (10:33)
[2023-12-30] MEDS ORDERED: ONDANSETRON INJ 2 MG/ML 2 ML VIAL ONE (10:33)
[2023-12-30] MEDS ORDERED: ROCURONIUM BROMIDE 10 MG/ML 5 ML VIAL IV ONE ×3 (10:33→11:50)
[2023-12-30] MEDS ORDERED: DEXAMETHASONE SOD INJ 4 MG/ML VIAL ONE (10:33)
[2023-12-30] MEDS ORDERED: PROPOFOL IV EMULSION 10 MG/ML 20 ML VIAL IV ONE ×3 (10:33→11:24)
[2023-12-30] MEDS ORDERED: DexMEDEtomidine HCL IV 100 MCG/ML VIAL IV ONE (11:16)
[2023-12-30] MEDS: BUPIVACAINE/EPINEPHRINE 0.25% 1:200,000 30 ML VIAL ONE (11:25)
[2023-12-30] MEDS: ceFAZolin 2000MG 2,000 MG/15 ML SYR IV SCH ×2 (11:40→19:47)
[2023-12-30] MEDS ORDERED: HYDROmorphone INJ 2 MG/ML SYR/VIAL ONE (12:29)
[2023-12-30] MEDS: ceFAZolin 330 MG/ML 1 GM VIAL ONE (13:07)
--- NOTE | 2023-12-30 13:16 | Operative Report ---
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 #2 exploration of posterior spinal fusion T11-S1. #3 revision decompression L1-L2. #4 revision interbody fusion L1-L2. #5 placement of Spira 11 x 26 mm at L1-L2. #6 placement posterior instrumentation T11-S1. #7 placement infuse collagen sponge combined with Koros master graft in the posterior lateral gutters T12-L3. Placement of os design bone graft interbody space. 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 She is subsequently here for revision surgery. Description of Procedure Patient was met with identified informed consent obtained. Patient was then taken to the operative suite underwent ablation placed in a prone position on the Usama table atop the Chace frame. All bony prominences well-padded eyes inspected to ensure no external precipice upon them. This point the lumbar spine was prepped and draped in a sterile fashion. Sharp dissection with the assistance of Bovie cautery was formed down to and exposing instrumentation from T11-S1. And then proceeded to move the hardware bilaterally explored the fusion mass at all levels noting of fracture at the L1-L2 posterior lateral fusion mass. Pedicle screws were then reinserted into T11 T12-L1 L3-L4 L5-S1 bilaterally. Then performed revision decompression L1-L2. By way of transforaminal approach on the right complete discectomy of L1-L2 was performed endplates guarded to subcortical bleeding bone and a 11 x 26 mm Spira cage filled with Oxyzyme bone graft tapped in position. The proper size rods were then contoured and locked into position bilaterally. The transverse processes remaining fusion mass T12 L1-L2-L3 burred to subcortical bone. Infuse collagen sponge, with Koros bone graft placed in the posterior lateral gutters. 15 round ELZBIETA drain inserted. The incision was then closed with 1 Vicryl the fascia 2-0 Vicryl subcutaneously and 4 Monocryl for final skin closure. Steri-Strips and sterile dressing placed. Patient waken taken the PACU stable condition. Please note spinal cord monitoring visualized at the procedure no changes noted. Lastly Hank Humphries was present throughout the entire procedure involved the patient positioning complex portion of the surgery and final skin closure. Im ordering 20 grams of Triple Fenton Collagen Powder (Rental Kharma [id number]) to treat an incision wound that was caused by a spine procedure. The incision is approximately 2 cm(W) x 4 cm(L) into the joint (D) in size and is a full thickness wound. Triple Fenton collagen comes in 1 gram packets so 20 packets were ordered. Given the size of the wound, with light to moderate exudate I chose to order a 20 day supply. The patient will be provided instructions for proper application of the collagen wound kit. The patient will be asked to apply the collagen powder daily and then cover it with sterile dressings dispensed. Collagen was selected as I expect the collagen to attract monocytes and fibroblasts, act as a sacrificial substrate for MMPs, and ultimately proved a matrix for tissue and vessel growth. The collagen will act as a primary dressing in this scenario. It is medically necessary for proper healing of these wounds to improve bioavailability and contact with each wound surface, this is also to help prevent infection of wounds and promote healing ultimately leading to a better healing outcome and limit the risk of infection. I attest to the content of the Intraoperative Record and any orders documented therein. Any exceptions are noted below.
[2023-12-30] MEDS ORDERED: NEOSTIGMINE METHYLSULFATE 1 MG/ML 10ML VIAL ONE (13:17)
[2023-12-30] MEDS: fentaNYL citrate PF 100 MCG/2 ML VIAL IV PRN (14:04)
[2023-12-30] MEDS: HYDROmorphone INJ 2 MG/ML SYR/VIAL IV PRN (14:14)
--- NOTE | 2023-12-30 15:01 | Fluoroscopy Report ---
FL lumbar spine 2-3V CLINICAL HISTORY: T11-L1 HW REMOVAL , REVISION D/F T1-L2 COMPARISON STUDY: Lumbar spine fluoroscopic images December 28, 2019. Lumbar spine radiographs Octo 2013. FLUOROSCOPY TIME: 19.3 seconds. marianne Levy: 12.11 mGy FLUOROSCOPIC IMAGES: 2 FINDINGS: Fluoroscopy was provided during hardware removal and revision decompression and fusion. Mul tilevel discectomy, decompression and fusion is partially imaged on this exam. Exact localization is difficult given partial visualization of the lumbar spine. Visualized portions of the hardware are in tact. There are no unexpected radiopaque foreign bodies. IMPRESSION: Fluoroscopy provided during hardware removal and revision decompression and fusion. ACT 112: Negative or not required by law. Electronically signed by: Tony Kraus M.D. 12/30/2023 2:59 PM
--- NOTE | 2023-12-30 15:44 | Anesthesiology Progress Note ---
Date of Service December 30, 2023 Anesthesia Post Procedure Vital Signs Vital Signs: Temp Pulse Pulse Resp BP Pulse Ox O2 Del Method 12/30/23 15:30 64 16 116/61 93 Room Air 12/30/23 15:15 64 18 121/73 95 Room Air 12/30/23 15:00 36.4 C L 68 20 131/89 98 Nasal Cannula 12/30/23 14:50 65 16 115/55 L 97 Nasal Cannula 12/30/23 14:40 66 16 134/66 97 Nasal Cannula 12/30/23 14:30 60 16 130/71 97 Nasal Cannula 12/30/23 14:20 61 14 128/77 98 Nasal Cannula 12/30/23 14:10 67 16 133/87 96 Room Air 12/30/23 14:00 65 18 131/88 100 Oxymask 12/30/23 13:50 58 L 20 123/71 99 Oxymask 12/30/23 13:42 36.3 C L 61 16 147/81 H 100 Oxymask 12/30/23 09:32 36.9 C 71 18 141/95 H 98 Room Air O2 Flow Rate 12/30/23 15:30 12/30/23 15:15 12/30/23 15:00 2 12/30/23 14:50 2 12/30/23 14:40 2 12/30/23 14:30 2 12/30/23 14:20 2 12/30/23 14:10 12/30/23 14:00 3 12/30/23 13:50 6 12/30/23 13:42 6 12/30/23 09:32 Pain Intensity Bilateral Back: Pain Intensity: 5 Transfer of Care Handoff Completed per policy Notes Mental Status: alert / awake / arousable and participated in evaluation Patient Amnestic to Procedure: Yes Nausea / Vomiting: adequately controlled Pain: adequately controlled Airway Patency, RR, SpO2: stable & adequate BP & HR: stable & adequate Hydration State: stable & adequate Anesthetic Complications: no major complications apparent and Pt Satisfied with anesthetic care
[2023-12-30] MEDS ORDERED: FLUTICASONE PROPIONATE NA SPR 16 GM BTL PRN (15:59)
[2023-12-30] MEDS ORDERED: DO NOT ADMINISTER FLU VACCINE PRN (15:59)
[2023-12-30] MEDS ORDERED: ONDANSETRON 4 MG OD TAB PO PRN (15:59)
[2023-12-30] MEDS ORDERED: NALOXONE HCL 0.4 MG/1 ML VIAL/CARP IV PRN (15:59)
[2023-12-30] MEDS ORDERED: ONDANSETRON HCL 4 MG PO PRN (15:59)
[2023-12-30] MEDS ORDERED: DO NOT ADMINISTER PNEUMOCOCCAL VACCINE PRN (15:59)
[2023-12-30] MEDS ORDERED: SOD PHOSPHATE/SOD BIPHOSPHATE ENEMA 132 ML BTL PR PRN (15:59)
[2023-12-30] MEDS ORDERED: ALUMINUM/MAGNESIUM SUSP 30 ML UDC PO PRN (15:59)
[2023-12-30] MEDS ORDERED: MAGNESIUM HYDROXIDE SUSP 30 ML UDC PO PRN (15:59)
[2023-12-30] MEDS ORDERED: ACETAMINOPHEN 1,000 MG/100 ML VIAL IV PRN (15:59)
[2023-12-30] MEDS ORDERED: LORazepam 2 MG/1 ML VIAL IV PRN (15:59)
[2023-12-30] MEDS ORDERED: hydrOXYzine HCl 25 MG TAB PO PRN (15:59)
[2023-12-30] MEDS ORDERED: METOCLOPRAMIDE HCL INJ 5 MG/ML 2 ML VIAL IV PRN (15:59)
[2023-12-30] MEDS ORDERED: bisacodyL 10 MG SUPP PR PRN (15:59)
[2023-12-30] MEDS ORDERED: PROMETHAZINE 12.5 MG/50.5 ML BAG IV PRN (15:59)
[2023-12-30] MEDS ORDERED: ALBUTEROL HFA 8 GM INHALER INH PRN (15:59)
[2023-12-30] MEDS ORDERED: HYDROmorphone INJ 0.5 MG/0.5 ML SYR IV PRN (15:59)
[2023-12-30] MEDS ORDERED: FLUTICASONE FUROATE 100MCG 14 PUFFS/INHALER INH PRN (16:21)
[2023-12-30] MEDS: LACTATED RINGER'S 1,000 ML IV SCH (16:26)
[2023-12-30] MEDS: HYDROmorphone INJ 1 MG/ML SYRINGE IV PRN (16:27)
--- NOTE | 2023-12-30 16:41 | Consultation ---
Date of Consultation December 30, 2023 Assessment & Plan (1) Back pain: Plan #Asthma #MDD #GERD #Chronic pain -home medication #ADHD -declines home medication Rest of plan of care by orthopedics History of Present Illness Reason for Consultation: medical management Attending Physician: Ant Frank DO History of Present Illness 53F pmh asthma, MDD, GERD, chronic pain, ADD who presented for fractured hardware removal. IM is being consulted for medical management. On my evaluation patient has no specific complaints other than back pain. Allergies Allergy/AdvReac Type Severity Reaction Status Date / Time pollen extracts Allergy Unknown Congestion, Verified 12/30/23 09:22 rhinorrhea Home Medications Medication Instructions Recorded Confirmed Type albuterol sulfate 90 mcg/actuation 2 puff inhalation Q6H PRN Wheezing 03/26/19 12/30/23 History aerosol inhaler cholecalciferol (vitamin D3) 25 1,000 unit PO QAM 03/26/19 12/30/23 History mcg (1,000 unit) chewable tablet (Vitamin D3) diclofenac sodium 1 % topical gel 2 g topical QID PRN Pain 03/26/19 12/30/23 History (Voltaren) fluticasone propionate 50 2 spray intranasal BID PRN 03/26/19 12/30/23 History mcg/actuation nasal Congestion spray,suspension (Flonase Allergy Relief) methadone 10 mg tablet 7.5 mg PO BID 03/26/19 12/30/23 History multivitamin 1 tab PO QAM 03/26/19 12/30/23 History pregabalin 50 mg capsule (Lyrica) 150 mg PO BID 03/26/19 12/30/23 History bupropion HCl 100 mg tablet,12 hr 150 mg PO QAM 12/28/19 12/30/23 History sustained-release (Wellbutrin SR) fluticasone propionate 110 2 puff inhalation BID PRN sob 12/28/19 12/30/23 History mcg/actuation HFA aerosol inhaler (Flovent HFA) esomeprazole magnesium 20 mg 20 mg PO QAM 12/17/20 12/30/23 History capsule,delayed release (Nexium) ondansetron HCl 4 mg tablet 4 mg PO Q6H PRN Nausea 12/17/20 12/30/23 History (Zofran) escitalopram oxalate 20 mg tablet 20 mg PO HS 12/15/23 12/30/23 History (Lexapro) methadone 5 mg tablet 5 mg PO .NOON 12/15/23 12/30/23 History methylphenidate HCl 54 mg 54 mg PO QAM 12/15/23 12/30/23 History tablet,extended release 24 hr (Concerta) pregabalin 50 mg capsule (Lyrica) 50 mg PO QPM 12/15/23 12/30/23 History Patient History Medical History (Updated 12/30/23 @ 10:03 by Ant Frank DO) Degenerative disc disease, lumbar 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 Emphysema lung ADHD (attention deficit hyperactivity disorder) Neurogenic claudication denies recent change or worsening Chronic pain GERD (gastroesophageal reflux disease) controlled, stable per pt Asthma Well controlled per pt; last rescue inhaler use several months ago Chronic fatigue syndrome Stable Fibromyalgia Stable Osteoarthritis Anxiety Migraine Hx, no recent issues Surgical History History of spinal fusion L1-L2 decompression, T12-L3 fusion, L2-S1 hardware removal (12/28/19): Grade view 1, ETT 7.0 at [facility] History of hysterectomy History of total knee replacement right and revision Fusion of spine Lumbar x4 History of colonoscopy History of open reduction and internal fixation (ORIF) procedure HIGH TIBIAL OSTEOTOMY-RIGHT Fusion of spine Cervical H/O arthroscopy of shoulder Right History of carpal tunnel release R/L History of bowel resection D/t constipation History of discectomy History of laminectomy X 2 History of arthroscopy Right knee x15 History of tonsillectomy History of myringotomy History of adenoidectomy History of section X 2 History of foot surgery Left bunion History of herniorrhaphy X 3 Nausea and vomiting after administration of anesthetic agent denies needing scop patch Family History Other No family history of adverse response to anesthesia Social History Smoking Status: Current every day smoker Tobacco Type: Cigarettes Cigarettes Per Day: 5 cigs/day (tobacco use x 30 years)- advised; Second Hand Exposure: No; Do You Dip or Chew Tobacco: No; Tobacco Cessation Education Requested by Patient: No Hx Alcohol Use: No Hx Substance Use: No Preferred Language: Slovenian Communication Ability: Effective Quality Facilitator Required: No Beliefs That Will Affect Care: None Current Living Situation: Family and Significant Other Other Information That Helps Us Care for You: No Feels Safe at Home: Yes Safety Concerns: Feels Safe At This Time Assistive Devices: Glasses Assistive Devices Comment: prn glasses Review of Systems Constitutional: no sweats and no malaise Respiratory: no cough and no dyspnea Cardiovascular: no chest pain Musculoskeletal: + back pain and + radicular pain Physical Exam Constitutional: WD/WN, vitals as above Respiratory: normal respiratory effort, lungs clear to auscultation Cardiovascular: RRR, no murmur, no edema Results & Data Vital Signs (Past 12 Hours) Vital Signs Temp Pulse Pulse Resp BP Pulse Ox O2 Del Method 12/30/23 16:20 36.7 C 65 20 106/53 L 94 Room Air 12/30/23 15:45 36.5 C 65 19 110/65 94 Room Air 12/30/23 15:30 64 16 116/61 93 Room Air 12/30/23 15:15 64 18 121/73 95 Room Air 12/30/23 15:00 36.4 C L 68 20 131/89 98 Nasal Cannula 12/30/23 14:50 65 16 115/55 L 97 Nasal Cannula 12/30/23 14:40 66 16 134/66 97 Nasal Cannula 12/30/23 14:30 60 16 130/71 97 Nasal Cannula 12/30/23 14:20 61 14 128/77 98 Nasal Cannula 12/30/23 14:10 67 16 133/87 96 Room Air 12/30/23 14:00 65 18 131/88 100 Oxymask 12/30/23 13:50 58 L 20 123/71 99 Oxymask 12/30/23 13:42 36.3 C L 61 16 147/81 H 100 Oxymask 12/30/23 09:32 36.9 C 71 18 141/95 H 98 Room Air O2 Flow Rate 12/30/23 16:20 12/30/23 15:45 12/30/23 15:30 12/30/23 15:15 12/30/23 15:00 2 12/30/23 14:50 2 12/30/23 14:40 2 09/13/24 14:30 2 12/30/23 14:20 2 12/30/23 14:10 12/30/23 14:00 3 12/30/23 13:50 6 12/30/23 13:42 6 12/30/23 09:32 Laboratory Results Abnormal lab results 12/30/23 Range/Units 09:22 Crossmatch See Detail Diagnostic Findings Laboratory Results Blood Type O Negative 12/30/23 09:22 Antibody Screen NEGATIVE 12/30/23 09:22 Crossmatch See Detail 12/30/23 09:22 Impressions Lumbar Spine X-Ray 12/30/23 10:20 FL lumbar spine 2-3V CLINICAL HISTORY: T11-L1 HW REMOVAL , REVISION D/F T1-L2 COMPARISON STUDY: Lumbar spine fluoroscopic images December 28, 2019. Lumbar spine radiographs January 29, 2014. FLUOROSCOPY TIME: 19.3 seconds. Ka,r: 12.11 mGy FLUOROSCOPIC IMAGES: 2 FINDINGS: Fluoroscopy was provided during hardware removal and revision decompression and fusion. Multilevel discectomy, decompression and fusion is partially imaged on this exam. Exact localization is difficult given partial visualization of the lumbar spine. Visualized portions of the hardware are intact. There are no unexpected radiopaque foreign bodies. IMPRESSION: Fluoroscopy provided during hardware removal and revision decomp ression and fusion. ACT 112: Negative or not required by law. Electronically signed by: Tony Kraus M.D. 12/30/2023 2:59 PM
[2023-12-30] MEDS: oxyCODONE HCL IR 5 MG TAB (IMMEDIATE RELEASE) PO PRN (19:46)
[2023-12-30] MEDS: METHADONE HCL 5 MG TAB PO SCH (20:28)
[2023-12-30] MEDS: ESCITALOPRAM OXALATE 20 MG TAB PO SCH (20:28)
[2023-12-30] MEDS: DOCUSATE SODIUM/SENNA 50/8.6MG TAB PO SCH (20:28)
[2023-12-30] MEDS: PREGABALIN 150 MG CAP PO SCH (20:28)
[2023-12-30] MEDS: diphenhydrAMINE Capsule 25 MG CAP PO PRN (21:38)
[2023-12-31] MEDS: POLYETHYLENE (MIRALAX) 17 GM PACK PO SCH (06:02)
[2023-12-31 06:31] LABS: Basophils # (auto) 0.02 K/uL (0.00-0.20); Basophils % (auto) 0.2 %; Eosinophils # (auto) 0.03 K/uL (0.00-0.50); Eosinophils % (auto) 0.2 %; Hematocrit (blood only) 37.3 % (37.0-47.0); Hemoglobin 12.1 g/dl (12.0-16.0); Immature Granulocytes # (auto) 0.04 K/uL (0.01-0.20); Immature Granulocytes % (auto) 0.3 %; Lymphocytes # (auto) 2.35 K/uL (1.20-3.40); Lymphocytes % (auto) 18.3 %; Mean Corpuscular Hemoglobin 30.6 pg (25.0-34.0); Mean Corpuscular Hgb Conc 32.4 g/dL (32.0-36.0); Mean Corpuscular Volume 94.2 fL (80.0-100.0); Mean Platelet Volume 9.8 fL (9.4-12.4); Monocytes % (auto) 8.6 %; Neutrophils # (auto) 9.31 K/uL (1.40-6.50); Neutrophils % (auto) 72.4 %; Platelet Count 232 K/uL (130-400); RDW Coefficient of Variation 13.8 % (11.5-14.5); RDW Standard Deviation 47.4 fL (36.4-46.3); Red Blood Count 3.96 M/uL (4.20-5.40); White Blood Count 12.85 K/ul (4.8-10.8)
[2023-12-31 06:57] LABS: BUN Creatinine Ratio 15.8 (10-20); Creatinine Clr Calc Pharmacy 92.2 ml/min; Est GFR (African American) 103.8 ml/min; Est GFR (Non-African American) 89.6 ml/min; Potassium 3.9 mmol/L (3.5-5.1)
--- NOTE | 2023-12-31 08:14 | Orthopedic Progress Note ---
Date of Service December 31, 2023 Assessment & Plan (1) Neurogenic claudication due to lumbar spinal stenosis: Plan: The patient is doing well postop day 1. Will continue with GI DVT prophylaxis and mobilization. She will be seen by physical therapy today will likely be able to discontinue her Ching catheter. She will be an inpatient for the next 2 to 3 days. We will continue to monitor Admission and Anticipated Discharge Date Admission Date: December 30, 2023 Subjective Patient seen bedside in room 354. States she had some difficulty sleeping last night but the pain is relatively well-controlled. She is not having any pain going down her legs no numbness or tingling. She had been up to the chair yesterday. She has no other complaints. She denies any other numbness, tingling, paresthesias. Physical Exam Physical Exam: On exam she is alert and oriented. Her lower extremity motor exam reveals no focal atrophy strength and sensation are both intact. ELZBIETA drains in place is holding suction she has 80 cc out on the shift and 80 on the previous. Her abdomen soft nontender calves are supple and nontender. Results & Data Vital Signs (Past 12 Hours) Vital Signs Temp Pulse Resp BP Pulse Ox O2 Del Method 12/31/23 07:43 36.9 C 63 18 132/82 Room Air 12/31/23 03:58 36.6 C 58 L 18 119/74 97 Room Air 12/30/23 23:21 36.5 C 73 18 107/63 97 Room Air
[2023-12-31] MEDS: FAMOTIDINE 20 MG TAB PO PRN (09:29)
[2023-12-31] MEDS: ACETAMINOPHEN 500 MG TAB PO PRN (09:29)
[2023-12-31] MEDS: PANTOprazole 40 MG TAB PO SCH (09:30)
[2023-12-31] MEDS: buPROPion SR 150 MG TABCR PO SCH (09:30)
[2023-12-31] MEDS: CHOLECALCIFEROL 25 MCG (1000 UNITS) TAB PO SCH (09:30)
[2023-12-31] MEDS: MULTIVITAMIN TAB PO SCH (09:30)
[2023-12-31] MEDS: dexAMETHasone 6 MG in SYRINGE 0 ML IV SCH (09:30)
[2023-12-31] MEDS: PREGABALIN 50 MG CAP PO SCH (12:14)
[2023-12-31] MEDS: METHADONE HCL 5 MG TAB PO SCH (12:14)
--- NOTE | 2023-12-31 14:37 | Hospitalist Progress Note ---
Date of Service December 31, 2023 Assessment & Plan (1) Back pain: (2) Neurogenic claudication due to lumbar spinal stenosis: Plan S/P T11-L1 Hardware Removal, Revision Decompression and Fusion T11-L2 on 12/30/23 POD 1 Post op Hb today 12.1 Stable Pain control Activity per Primary Surgical team Continue PT/OT Bowel regimen #Asthma #MDD #GERD Continue home medications I spent a total of 35 minutes coordinating, documenting and providing care for this patient excluding time spent in performance of separately billed services Admission and Anticipated Discharge Date Admission Date: December 30, 2023 Subjective Patient seen and examined Reports surgical site pain is well controlled Has not had a BM yet Denied all other complaints on ROS Physical Exam Constitutional: + well hydrated; no acute distress Eyes: PERRL, conjunctivae normal, anicteric sclerae ENMT: external ear and nose normal, oropharynx normal Respiratory: normal respiratory effort, lungs clear to auscultation Cardiovascular: Rate/Rhythm: regular rate and regular rhythm Gastrointestinal (Abdomen): normal bowel sounds, soft, nontender, no hepatosplenomegaly Musculoskeletal: Clean dressing over surgical site Drain in situ Neurologic: PERRL, EOMI, accommodation nl, no face palsy, no dysarthria Psychiatric: A+Ox3, euthymic affect Results & Data Results & Data Vital Signs (Past 12 Hours) Vital Signs Temp Pulse Pulse Resp BP Pulse Ox O2 Del Method 12/31/23 11:17 36.9 C 60 18 128/77 96 Room Air 12/31/23 08:00 36.9 C 63 16 132/81 97 Room Air 12/31/23 07:43 36.9 C 63 18 132/82 97 Room Air 12/31/23 03:58 36.6 C 58 L 18 119/74 97 Room Air Laboratory Results Abnormal lab results 12/31/23 Range/Units 05:45 WBC 12.85 H (4.8-10.8) K/ul RBC 3.96 L (4.20-5.40) M/uL RDW Std Deviation 47.4 H (36.4-46.3) fL Neut # (Auto) 9.31 H (1.40-6.50) K/uL [place] # (Auto) 1.10 H (0.11-0.59) K/uL
--- NOTE | 2024-01-01 08:15 | Orthopedic Progress Note ---
Date of Service January 01, 2024 Assessment & Plan (1) Neurogenic claudication due to lumbar spinal stenosis: Plan: Patient is doing well postoperative day #2. She would like to go home today however her drain is still putting out significant amount. We discussed the possibilities of having her go home with a drain in place and having it pulled from the office however I believe it is best to keep her today and see how she does throughout the day make sure she does not have any other issues with nausea or urinary retention. Will continue with pain control measures. Continue with GI DVT prophylaxis. Will see her tomorrow morning and likely discharge her to home. Admission and Anticipated Discharge Date Admission Date: December 30, 2023 Subjective Patient seen bedside in room 354. She states she is doing well at this point. The pain is well-controlled. She has been up and walking. She has not had any nausea. She feels that she is progressing well. She denies any other numbness, tingling, or paresthesias. Physical Exam Physical Exam: On exam she is alert and oriented. Her lower extremity motor exam reveals no focal atrophy her strength and sensation are both intact her gait is stable. Her ELZBIETA drain is in place and is holding suction. She has had 40 cc of drainage on the shift 80 on the previous. Cardiovascular exam reveals no gross abnormalities. Her dressing is clean dry and intact. Results & Data Vital Signs (Past 12 Hours) Vital Signs Temp Pulse Pulse Resp BP Pulse Ox O2 Del Method 01/01/24 07:42 36.8 C 60 18 131/81 98 Room Air 01/01/24 03:09 36.8 C 66 18 124/85 96 Room Air 12/31/23 21:45 36.7 C 62 18 115/72 96 Room Air
[2024-01-01] MEDS: LORazepam 0.5 MG TAB PO PRN (09:11)
--- NOTE | 2024-01-01 10:36 | Hospitalist Progress Note ---
Date of Service January 01, 2024 Assessment & Plan (1) Back pain: (2) Neurogenic claudication due to lumbar spinal stenosis: Plan S/P T11-L1 Hardware Removal, Revision Decompression and Fusion T11-L2 on 12/30/23 POD 2 Post op Hb was 12.1 Stable Pain control Activity per Primary Surgical team Continue PT/OT Bowel regimen #Asthma #MDD #GERD Continue home medications I spent a total of 30 minutes coordinating, documenting and providing care for this patient excluding time spent in performance of separately billed services Admission and Anticipated Discharge Date Admission Date: December 30, 2023 Subjective Patient seen and examined Reports surgical site pain is well controlled Has not had a BM yet but passing flatus Denied all other complaints on ROS Physical Exam Constitutional: + well hydrated; no acute distress Eyes: PERRL, conjunctivae normal, anicteric sclerae ENMT: external ear and nose normal, oropharynx normal Respiratory: normal respiratory effort, lungs clear to auscultation Cardiovascular: Rate/Rhythm: regular rate and regular rhythm Gastrointestinal (Abdomen): normal bowel sounds, soft, nontender, no hepatosplenomegaly Musculoskeletal: Clean dressing over surgical site with drain in situ Neurologic: PERRL, EOMI, accommodation nl, no face palsy, no dysarthria Psychiatric: A+Ox3, euthymic affect Results & Data Results & Data Vital Signs (Past 12 Hours) Vital Signs Temp Pulse Pulse Resp BP Pulse Ox O2 Del Method 01/01/24 07:42 36.8 C 60 18 131/81 98 Room Air 01/01/24 03:09 36.8 C 66 18 124/85 96 Room Air Laboratory Results Abnormal lab results 12/30/23 Range/Units 09:22 Crossmatch See Detail
[2024-01-01 19:48] VITALS: TEMP 98.2
[2024-01-02 07:18] VITALS: BP 120/71; PULSE 58; RESP 12; O2SAT 94
--- NOTE | 2024-01-02 10:28 | Discharge Summary ---
Date of Service January 02, 2024 Admission HPI Per Admitting Provider This is a 53-year-old female known to me that presents with onset of severe back pain and evidence of fractured hardware. She is here for revision surgery. Principal Diagnosis Hardware failure with neurogenic claudication Discharge Data Allergies Allergy/AdvReac Type Severity Reaction Status Date / Time pollen extracts Allergy Unknown Congestion, Verified 12/30/23 09:22 rhinorrhea Consultations 12/30/23 15:59 Consult Hospitalist Routine Procedures Performed Operation Date: 12/30/23 10:20 Actual Procedures p T11-L1 Hardware Removal, Revision Decompression and Fusion T11-L2, Spinal Cord Monitoring - Ant Frank DO Ordered Studies 12/30/23 10:20 FL lumbar spine 2-3V Routine Hospital Course (1) Neurogenic claudication due to lumbar spinal stenosis: Patient underwent revision decompression fusion tolerated as well as taken to orthopedic for postoperative. Postop patient progressed appropriate. ELZBIETA drain decreasing well. Tolerating physical therapy. Excellent strength testing. Pain well-controlled. Subsidy discharged home. Discharge orders instructions found in chart for further review. Total Time Total Time Spent Total Time Spent (In Minutes): 20 minutes Discharge Plan Discharge Items Patient Disposition: Home - Self-Care Reason For Visit: Spinal Instability, Lumbar Spine Pain Discharge Diagnosis: Lumbar spinal stenosis with instability Activity: As commented below Non-emergency contact: Primary Care Provider Call non-emergency contact if: you have any medication questions Follow-up/Referrals: Marvin Lemus MD [Primary Care Provider] - Diet: Regular Addtl Attending Provider Instructions: ACTIVITY RECOMMENDATIONS: SELF CARE INSTRUCTIONS AFTER THORACIC/LUMBAR FUSIONS 1. You may walk to your tolerance. It is good exercise for your legs and back. Expect some back and intermittent leg aches and pains. 2. You may perform "counter-top" level activities (make a sandwich, alcon with a project, etc.). 3. No bending or lifting of more than 10 pounds or back twisting of any nature (roll like a log when turning in bed). 4. You may ride in a car for 20-30 minutes at a time. No driving until after your first visit with your doctor. 5. Frequent changes of position and restricting sitting to 30 minutes at a time will help limit the amount of back spasms and stiffness you may experience. 6. You may discontinue the use of ambulatory aids (cane, crutches, etc.) once your strength and confidence allow. 7. You may carding supervisor the shower and let water strike your incision when you arrive home at least once daily. Do not take a tub bath, sit in a hot tub or go into a swimming pool until after your first recheck in the office. SPECIAL CARE INSTRUCTIONS: VERY IMPORTANT TO READ AND REVIEW A. Your surgical incision has been closed with a cosmetic suture under the skin that will dissolve in about 6 weeks. In 14 days, you can use a pair of clean scissors and cut the suture that is left outside of the skin at the ends of your incision. 1. The small skin tapes can be removed 7 days after surgery if they have not fallen off by that point. 2. You may keep the wound open to air as much as possible to promote healing after post-op day number 5 unless told otherwise by your doctor. 3. If you think the wound looks like it is becoming infected (redness or worsening drainage) and/or you are experiencing fever, chill or worsening back pain and muscle spasms, contact the office so that we may evaluate you as soon as possible. B. Complications are uncommon, but please contact us if you have any signs or symptoms of: 1. wound infection (fever higher than 102.5 degrees F, redness, separation of wound, drainage, or increasing pain from the incision) 2. blood clots in legs (pain, swelling, redness and warmth in legs) 3. urinary tract infection (fever higher than 102.5 degrees F, burning upon urination or increased frequency of urination) 4. nerve problems (inability to walk on your toes or heels, numbness, loss of bowel or bladder control) 5. any other symptoms that concern you C. Please call the office at if you have any concerns or ques tions about your operation or recovery. D. No smoking! Smoking drastically decreases the chance of a solid fusion. E. Do not take any anti-inflammatory medications (Indocin, Advil, Motrin, Aspirin, Naprosyn, etc.) as these may inhibit the chance of a solid fusion. Tylenol is okay to take for pain. MANAGING PAIN AFTER SPINAL SURGERY 1. Narcotic medication is intended for short-term use and will be provided for surgical pain. Surgical pain usually lasts for a period of 4-6 weeks. Narcotic medication includes Percocet, Vicodin, Darvocet, Tylenol #3 or Lortab. 2. Longer-term pain is more appropriately treated with non-narcotic medication such as Tylenol ES. 3. Muscle spasm is not appropriately treated with narcotics. Muscle relaxers such as Soma, Flexeril or Skelaxin can be used along with Tylenol ES. 4. Remember that we all live with some "aches and pains". This is not unusual or uncommon after an injury or as we get older. a. Back pain is expected and may include muscle spasms for 4 to 6 weeks after surgery. The pain should gradually improve. If the pain worsens for no apparent reason, please contact the office. b. Intermittent leg pain may also be experienced and should not be concerned about unless it worsens for no apparent reason. If so, please contact the office. 5. We will provide appropriate medication within the normal guidelines of their prescribed use. We will also be very cautious and aware of potential abuse and extended duration of patients' medication needs. a. Pain medications are for your comfort and to assist with sleep and rest so that the tissue can heal. They are not provided in order to return to normal activity and should not be used through the day. To do so or worsening pain at night can result from ongoing tissue damage and development of tolerance to the prescribed medicine. 6. Please allow 2-3 days to process refills. Prescriptions will not be mailed but must be picked up at the office. FOLLOW UP VISIT: Keep your scheduled follow-up appointment. Any questions, please call the office at . Pending Studies at Discharge: No Stand-Alone Forms: My [facility] [employer], Smoking Cessation Medications and DC Order Prescriptions: New oxycodone 5 mg tablet 5 mg PO Q6H PRN (Reason: pain) Qty: 30 0RF Continued fluticasone propionate [Flonase Allergy Relief] 50 mcg/actuation [place],Suspension 2 spray INTRANASAL BID PRN (Reason: Congestion) cholecalciferol (vitamin D3) [Vitamin D3] 1,000 unit Tablet,Chewable 1,000 unit PO QAM methadone 10 mg Tablet 7.5 mg PO BID Rx Instructions: cut and then cutting 5 mg tablet then taken multivitamin Tablet 1 tab PO QAM pregabalin [Lyrica] 50 mg Capsule 150 mg PO BID albuterol sulfate 90 mcg/actuation Hfa Aerosol Inhaler 2 puff INHALATION Q6H PRN (Reason: Wheezing) bupropion HCl [Wellbutrin SR] 100 mg tablet sustained-release 12 hr 150 mg PO QAM fluticasone propionate [Flovent HFA] 110 mcg/actuation HFA aerosol inhaler 2 puff INHALATION BID PRN (Reason: sob) esomeprazole magnesium [Nexium] 20 mg Capsule,Delayed Release(Dr/Ec) 20 mg PO QAM ondansetron HCl [Zofran] 4 mg Tablet 4 mg PO Q6H PRN (Reason: Nausea) methylphenidate HCl [Concerta] 54 mg Tablet Extended Release 24hr 54 mg PO QAM methadone 5 mg Tablet 5 mg PO .NOON pregabalin [Lyrica] 50 mg Capsule 50 mg PO QPM escitalopram oxalate [Lexapro] 20 mg Tablet 20 mg PO HS Discontinued diclofenac sodium [Voltaren] 1 % Gel 2 g TOPICAL QID PRN (Reason: Pain) Discharge Orders: Discharge Order (Routine); Ordered 01/02/24 Ordered By: Ant Frank Admission Data Admit Date/Time: 12/30/23 13:19 Attending Provider: Ant Frnak Admit Provider: Ant Frank Primary Care Provider: Marvin Lemus Other Providers: Rody Leiva
== END 2024-01-02 12:14 | disposition home or self-care (01) | DRG 454 ==
LOC: ASU 08:59 → 3W 13:19